=== PATIENT | female | born 1970 | race Caucasian/White ===

== ENCOUNTER 2025-02-16 01:08 | Inpatient (IN) | payer OTHER, SELFPAY ==
[2025-02-15 21:38] VITALS: BP 131/80
[2025-02-15 21:40] VITALS: BP 131/80; BMI 32.0
[2025-02-15 21:45] LABS: Glucose - Point of Care 104 mg/dl (70-99)
[2025-02-15 21:56] LABS: % Basophils 0.9 % (0-2); % Eosinophils 5.1 % (0-6); % Immature Granulocytes 0.4 % (0-0.5); % Lymphocytes 25.4 % (20.5-51.1); % Monocytes 8.1 % (1.7-9.3); % Neutrophils 60.1 % (42.2-75.2); Absolute Basophils 0.1 10^3/uL (0-0.2); Absolute Eosinophils 0.4 10^3/uL (0-0.7); Absolute Lymphocytes 2.1 10^3/uL (1.2-3.4); Absolute Monocytes 0.7 10^3/uL (0.1-0.6); Absolute Neutrophils 4.9 10^3/uL (1.4-6.5); Hematocrit 36.4 % (37.0-47.0); Hemoglobin 12.5 g/dL (12.0-16.0); Mean Corp Hgb Conc. 34.3 g/dL (33.0-37.0); Mean Platelet Volume 12.1 fL (7.4-10.4); Nucleated Red Blood Cells % 0 %; Platelet Count 244 10^3/uL (130-400); Red Blood Cell Count 3.57 10^6/uL (4.20-5.40); Red Cell Dist. Width 12.9 % (11.5-14.5); White Blood Cell Count 8.1 10^3/uL (4.8-10.8)
[2025-02-15 22:00] VITALS: BP 130/78
[2025-02-15 22:18] LABS: ALT (SGPT) 35 U/L (0-35); AST (SGOT) 31 U/L (14-36); Albumin 4.7 g/dl (3.5-5.0); Alkaline Phosphatase 75 U/L (38-126); Blood Urea Nitrogen 19 mg/dl (7-17); Calcium 9.5 mg/dl (8.4-10.2); Carbon Dioxide 27 mmol/L (22-30); Chloride 105 mmol/L (98-107); Estimated Creatinine Clearance 111 ml/min; Glucose 100 mg/dl (70-99); Sodium 140 mmol/L (135-145); Total Bilirubin 0.8 mg/dl (0.2-1.3); Total Protein 7.3 g/dl (6.3-8.2); eGFR > 60.00
[2025-02-15 22:19] LABS: Alcohol 62 mg/dl
[2025-02-15 22:22] LABS: INR 1.11; PT 14.7 Sec (11.4-14.6)
--- NOTE | 2025-02-15 22:26 | ED.GENMED ---
History of Present Illness
General
Chief Complaint: Weakness
Source: patient, spouse and family
Time Seen by Provider: 02/15/25 22:07
History of Present Illness
History of Present Illness:
This is a 54-year-old female with a history of mechanical aortic valve, atrial fibrillation, aortic aneurysm/dissection with repair, history of hemorrhagic stroke who presents after she acutely developed vision loss. states that about 9:20
PM she started sort of just staring at him. She then kind of slid off of her chair and had little bit of tightening of her right arm but was awake. He did not notice seizure activity but was worried she was having a stroke. The patient my
evaluation reports that her vision is not normal. Patient does admit that she has not been taking her Coumadin as she should and was worried her INR is low. Due to her hemorrhagic stroke they like to keep her INR around 2.0. Patient does report a
mild headache.
Past History
Past History
ED Past Medical History: Arrthythmia (Atrial fibrillation), CVA (Hemorrhagic), GERD, HTN, Valvular disease (Congenital bicuspid aortic valve with subsequent aortic dissection/ AVR with [facility]) and Other (Aortic aneurysm/dissection with repair,
hemorrhagic CVA)
ED Past Surgical History: Cardiac (Aortic valve replacement mechanical, aortic root repair), and Other ([facility] aortic valve replacement and an ascending aortic graft replacement [address] [place] [address])
Social History
Tobacco: Non-smoker
Alcohol: Occasional
Personal:
Living: with family
Family History
Family History: Negative Diabetes, Hypertension, Early CAD, Asthma or Cancer
Phy Exam
Physical Exam
Physical Exam:
CONSTITUTIONAL Patient alert and oriented to person, place and time. Well-appearing. Vital signs reviewed.
HEAD atraumatic, normocephalic.
EYES eyelids normal to inspection, Extraocular muscles intact, Conjunctiva normal, Sclera normal.
NECK normal range of motion, Trachea midline, no jugular venous distention.
RESPIRATORY CHEST No respiratory distress noted, Chest expansion equal, Bilateral breath sounds clear.
CARDIOVASCULAR regular rate and rhythm, Heart sounds normal.
ABDOMEN No distention.
BACK normal inspection, no obvious deformities
UPPER EXTREMITY range of motion normal, Motor strength normal, no cyanosis, no edema.
LOWER EXTREMITY range of motion normal, Motor strength normal, no cyanosis, no edema.
NEURO Speech normal, No focal motor deficits, [place] coma scale 15, Memory normal, Cranial Nerves intact to screening exam. No pronator drift. Normal [id number]. Normal [id number]. Right sided homonymous hemianopsia
SKIN skin warm, dry, and normal in color.
Scores
NIH Stroke Score
Level of Consciousness: 0 - Alert
LOC Questions: 0-Answers both correctly
LOC Commands: 0-Performs both correctly
Best Horizontal Gaze: 0-Normal
Visual Marquez: 2=Full hemianopia
Facial Palsy: 0=Normal, symmetrical
Motor - Right Arm: 0=No drift 10 seconds
Motor - Left Arm: 0=No drift 10 seconds
Motor - Right Le-No drift 5 seconds
Motor - Left Le-No drift 5 seconds
Limb Ataxia: 0-Absent
Sensation: 0-Normal
Best Language: 0-No aphasia
Dysarthria: 0-Normal
Extinction and Inattention: 0-No abnormality
NIH Total Score:: 2
Course
Orders/Labs/Results
Orders:
Orders
02/15/25 21:40
EKG [Electrocardiogram (*1)] Urgent
Reason for Study: Tachycardia
EKG- Treatment ONCE
02/15/25 21:46
Alcohol Urgent
Complete Blood Count/With Diff Urgent
Comprehensive Metabolic Panel Urgent
02/15/25 21:55
CT Head W/o Iv Contrast Urgent
Comment:
Reason For Exam: weakness, loss of peripheral vision, confusion
02/15/25 21:56
Add On- LAB Urgent
Tests Added?: alcohol level
02/15/25 22:01
PT/INR [Prothrombin Time] Urgent
02/15/25 22:25
CT BRAIN PERF STROKE ALERT Urgent
Comment:
Reason For Exam: R hemianopsia
CT HEAD/NECK ANG STROKE ALERT Urgent
Comment:
Reason For Exam: R hemianopsia
02/15/25 23:15
Troponin I Urgent
02/16/25 00:41
Admit/Transfer Patient As Directed
Co-Sign Provider:
Level of Care: Inpatient admission
Assign to:: IMU- Intermediate Care
Physician / Group: William
Diagnosis: Thromboembolic CVA
Reason for Hospitalization: CVA
Expected length of stay greater than two midnights?: Yes
ELOS- Estimated Length of Stay in days: 2
I certify the patient meets the requirements for IP care: Yes
PRN Pain Medication Management As Directed
May give lesser potent ordered pain med per pt: Yes
preference::
Protocol:: Medication orders for pain may be administered in a
manner that supports deferring to patient preference
when the pt is:
- Requesting an ordered lesser potent pain medication.
Least to most potent pain medications are defined
as: acetaminophen < NSAID < tramadol < opioids
(morphine, oxycodone, hydromorphone).
- Requesting a lesser dose of the same medication IF
ORDERED.
- Requesting a less intrusive route of administration
if both routes are prescribed by the provider (PO <
IV).
02/16/25 00:42
Code Status As Directed
Resuscitation Status: Full Code
02/16/25 12:01
MR Brain Without Contrast Urgent
Comment: EVALUATE PITUITARY
Reason For Exam: R hemianopsia
OK for patient to be off Cardiac Monitoring for MRI: Yes
Recent pill cam endoscopy?: No
Pacemaker/Defibrillator?: No
Brain Aneurysm Clips?: No
Have you ever worked with metal? grinding metal? welding?: No
Cochlear(ear) implants?: No
Does the patient have IV access?: Yes
Does the patient have any stents?: No
Abnormal Lab Results
02/15/25 02/15/25 02/15/25
21:42 21:46 22:01
RBC 3.57 L 10^6/uL
(4.20-5.40)
Hct 36.4 L %
(37.0-47.0)
MCV 102.0 H fL
(81.0-99.0)
MCH 35.0 H pg
(27.0-31.0)
MPV 12.1 H fL
(7.4-10.4)
Absolute Monos (auto) 0.7 H 10^3/uL
(0.1-0.6)
PT 14.7 H Sec
(11.4-14.6)
BUN 19 H mg/dl
(7-17)
Glucose 100 H mg/dl
(70-99)
POC Glucose 104 H mg/dl
(70-99)
02/15/25 21:46
02/15/25 21:46
Vital Signs
Initial and Last Documented VS:
Initial Vital Signs
BP
131/80
02/15/25 21:38
Last Documented Vital Signs
Temp Pulse Resp BP Pulse Ox
98.9 F 76 16 119/66 96
02/16/25 00:48 02/16/25 02:00 02/16/25 02:00 02/16/25 01:26 02/16/25 01:30
MDM/Problems Addressed
Differential Diagnosis Includes:
CVA, hemorrhagic CVA, uncontrolled hypertension, dissection, tumor, seizure
MDM/Problems Addressed:
Acute CVA, possible pituitary tumor
*Radiology
Radiology exam reviewed: radiology read reviewed
*Pulse Oximetry
Patient hypoxic: no
*EKG
Interpreted by ED Provider?: Yes
Interpretation: normal
Rate: normal
Interval: normal interval
QRS Pattern: normal QRS
Ischemia: no ischemia
*Hospitality Aide Interpretation
Rate: normal
Interpretation: normal
Rhythm: sinus
*Critical Care Note
Total Time (30-74mins, 75-104mins- exclusive of procedures): 95 minutes
Data Reviewed
Review of Other/Old Records Reveals: Discharge Summary (Discharge summary reviewed from January 15, 2012)
Source: family
Prescriptions/Medications Considered But Not Given:
Consider TNK but stroke score is low and history of hemorrhagic CVA
Patient Management
Discussion with other providers: Hospitalist, Title Insurance Examiner (Stroke neurologist at [facility]) and Radiologist (Posterior circulation cutoff)
Escalation/DeEscalation of care consider admission/obs:
54-year-old female presents with acute vision loss. Stroke alert initiated. Several discussions with stroke neurology. Given her history of hemorrhagic stroke and NIH stroke score of 2, hold off on TNK. Family agrees and does not want to take
the risk of TNK. However, given the concern for low INR and consideration for Lovenox or heparin, neurology recommends a stat MRI to evaluate stroke burden. If stroke burden is high may only treat with aspirin 81 mg but if stroke burden is low may
proceed with Lovenox. Also consider echocardiogram to evaluate for clot. Admit to ICU
Update Note
Update Note:
02/15/2025 11:35 PM Case again discussed with neurology who recommends transthoracic echocardiogram to rule in or rule out a cardiogenic source of emboli to help risk stratify whether or not heparin should be initiated. If there were to be a
cardiogenic source, heparin may be considered more heavily to prevent secondary stroke.
0015 Case discussed with cardiology. Does not feel the patient needs an emergent or urgent echocardiogram.
0225 case d/w neuro after MR. recommends 325mg ASA now and consider heparin/lovenox at 24-48 hours after last known well. to be decided by neuro today. stop ASA after heparin initiated. HOB flat with fluids for now with ECHO today. will also
communicate to hospitalists
ED Attending Note
-
Portions of this chart may have been created with voice recognition software.� Occasional wrong word or��sound alike� substitutions may have occurred due to the inherent limitations of voice recognition software.
Discharge Plan
Departure
Patient Disposition: Admit
Date of Disposition: 02/15/25
Time of Disposition: 23:24
Admit to: ICU
Presentation/result/management discussed w/ accepting MD/DO: Hospitalist
Discharge Problem:
Acute cerebrovascular accident (CVA)
Interventions
Interventions:
*Risk Screen - Suicide Last Done: 02/15/25 21:40
*General Assessment Last Done: 02/15/25 21:40
*Neglect/Abuse Screening Last Done: 02/15/25 21:40
*ED- Fall Risk Assessment Last Done: 02/15/25 21:40
*ED COVID-19 Vaccine History Last Done: 02/15/25 21:40
ED- Cardiac Assessment Last Done: 02/15/25 21:59
ED- Neurological Assessment Last Done: 02/15/25 21:59
ED- Pulmonary Assessment Last Done: 02/15/25 21:59
[2025-02-15 23:00] VITALS: BP 112/99
[2025-02-15 23:50] LABS: Troponin I 0.025 ng/ml
--- NOTE | 2025-02-15 23:57 | HPS.HSE ---
Family Physician
-
Family Physician: Farhan Espinal
Chief Complaint
-
Weakness and right-sided vision loss
History of Present Illness
This is a 54-year-old female with past medical history of aortic valve replacement with revision, mechanical aortic valve, atrial fibrillation, patient on anticoagulation with Coumadin, history of hypertension, history of hemorrhagic stroke in 2023
who presents to the emergency department with acute episode of weakness and visual field deficit.
Patient reported that since her hemorrhagic stroke INR goal has been between 2-2.5. She has self has been very reticent with taking the Coumadin and has not been monitoring INR closely. She stated that her INR when she last checked was
subtherapeutic and she took her next dose of Coumadin. Appears that patient has not been compliant with warfarin.
Family and patient reports sudden weakness today. She got up and suddenly collapsed to the floor feeling very weak. Did not notice the weakness of her right upper extremity and confusion. Since then the confusion has improved but she has had
persistent vision loss in the right visual field. Family updated by neurological exam at home and denied seeing any facial asymmetry. There was no dysarthria, aphasia. She denies having any headache.
In the emergency department she was afebrile, blood pressure was 112/99 with a pulse of 82 and she was satting 97% on room air. ECG shows normal sinus rhythm without any acute ST or T wave changes.
CBC was complete normal. INR was 1.11. Electrolytes BUN/creatinine were normal.
She had a CT of the head showing: Evidence of right frontotemporal craniotomy, new since examination of June 10, 2015. There are some areas of volume loss in the right hemisphere, compatible with postsurgical encephalomalacia and possibly
encephalomalacia from previous areas of infarction. Concern is raised for mass within the sella with suprasellar extension. Consider further evaluation with MRI of the brain/pituitary without and with intravenous contrast.
A CT perfusion suggests suggest left occipital lobe ischemic penumbra without a core of infarction.
CT angiogram of the head and neck with abrupt cut off of the left posterior cerebral artery as it passes lateral to the midbrain.
Medical History
Past Medical History
Past Medical History: Reports CVA (Prior hemorrhagic stroke status post surgery), HTN and Valvular Disease (Mechanical valve replacement)
Past Surgical History: Reports Brain
Social History
Tobacco: Non-smoker
Alcohol: None
Drug: None
Personal:
Living: With Family
Family History
Family History: Not pertinent
Allergies / Home Medications
Allergies reflects when Allergies were last updated in [employer].
Home Medications with original date entered in [employer]
Allergy/Medication List:
Allergies
Allergy/AdvReac Type Severity Reaction Status Date / Time
ciprofloxacin [From Cipro] Allergy Unknown Verified 02/15/25 21:46
ciprofloxacin HCl Allergy Unknown Verified 02/15/25 21:46
[From Cipro]
Quinolones Allergy Unknown Verified 02/15/25 21:46
methylprednisolone sodium AdvReac HTN, Rapid Verified 02/15/25 21:46
succinate HR
[From Solu-Medrol]
Home Medications
warfarin 7.5 mg tablet (Jantoven) 5 mg PO QPM 01/11/19
Amlodipine 5 mg tablet, 5mg PO DAILY 10/26/20
Lisinopril 10 mg tablet, 10mg po bid
Metoprolol Succinate 25 mg tablet, 25mg PO HS 10/26/20
Review of Systems
-
History Source: Patient and Family
Constitutional: Reports No Symptoms
EENT: Reports No Symptoms
Respiratory: Reports No Symptoms
Cardiac: Reports No Symptoms
Abdomen/GI: Reports No Symptoms
: Reports No Symptoms
Musculoskeletal: Reports No Symptoms
Skin: Reports No Symptoms
Neurological: Reports Weakness and Other (vision loss)
Endocrine: Reports No Symptoms
Hematologic/Lymphatic: Reports No Symptoms
Psych: Reports No Symptoms
Physical Exam
Vital Signs
Vital Signs
Temp Pulse Resp BP Pulse Ox
97.9 F 70 19 112/99 96
02/15/25 21:40 02/15/25 23:45 02/15/25 23:45 02/15/25 23:00 02/15/25 23:30
Physical Exam
General: Well Developed, Well Nourished and No Apparent Distress
HEENT: NormoCephalic, Moist mucous membranes, Atraumatic and PERRLA
Respiratory: Clear
Cardiac: S1/S2 and Regular Rhythm; No Murmur or Rub
GI: Soft, Non Tender, Non Distended and Normal Bowel Sounds; No Organomegaly
Rectal: Deferred by Provider
Musculoskeletal: No Clubbing, No Cyanosis and No Edema
Skin: No Rash
Neuro: AO x 3, Nonfocal/grossly intact and Other (Right hemianopsia); No Slurred Speech or Facial Droop
Psych: Calm
Laboratory Results
-
02/15/25 21:46
02/15/25 21:46
Laboratory Results
PT 14.7 Sec (11.4-14.6) H 02/15/25 22:01
INR 1.11 02/15/25 22:01
Total Bilirubin 0.8 mg/dl (0.2-1.3) 02/15/25 21:46
AST 31 U/L (14-36) 02/15/25 21:46
ALT 35 U/L (0-35) 02/15/25 21:46
Alkaline Phosphatase 75 U/L (38-126) 02/15/25 21:46
Troponin I 0.025 ng/ml 02/15/25 23:15
Data Reviewed
-
CT Scan: Report Reviewed by me
Medical Tests (Nuc Med, Echo, EKG etc): Image Personally Visualized and interpreted
Lab Data: Labs Reviewed by me
Old Records: Reviewed
Impression/Plan
-
IMPRESSION:
54-year-old with history of mechanical aortic valve coming in with right hemianopsia. Found to have left occipital ischemic penumbra with no area of core infarction. There is concern for a significant occipital infarct. There is an abrupt cut off
of the left posterior cerebral artery as it passes lateral to the midbrain. There are also some volume loss compatible with postsurgical inflammation and possibly inflammation from previous areas of infarction. The concern is raised for a mass
within the sella with suprasellar extension.
PLAN:
CVA -suspect thromboembolic CVA from a cardiogenic source in the setting of subtherapeutic INR in the patient with mechanical aortic valve. Patient endorses noncompliance due to prior history of hemorrhagic stroke about a year ago. She is supposed
to be on Coumadin to maintain INR between 2 and 2.5. INR today was 1.1. Currently has a visual field deficit but has no focal neurological deficits. CT perfusion study does suggest a right substantial area affected by an infarct but no core
infarct. Case discussed with neurology
-Admit to ICU
-MRI brain confirmed the acute infarct in the left RATING CLERK distribution with a significant infarct burden.
- due to infarct burden recommendation is to start with ASA 325mg now and consider full AC in 24-48 hours per day time neurology attending.
- keep HOB < 30 degrees.
- IV fluids
- echo today
- permissive hypertension
-Echo ordered
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
- N.p.o. for now except ice chips
AFIB
- rate controlled, continue metoprolol
- bridging anticoagulation with lovenox or heparin when clear of acute intracranial bleed, to be determined by neurology
- patient appeals referee to be informed in am
MVR - mechanical aortic valve
- according to patient given the hx of hemorrhagic stroke with craniotomey, her appeals referee had adjusted her therapeutic INR range to 2 - 2.5.
Right calf tendernes s- No swelling
- u/s pending
DVT PPX- subq lovenox for now
Code status - Full Code
[2025-02-16] VITALS (12 sets, daily range): BP systolic 119–149; BP diastolic 63–86; PULSE 66; O2SAT 98; BMI 32.0
[2025-02-16] MEDS: ASPIRIN 325 MG PO (03:16)
[2025-02-16] MEDS: LR 1000 IV (03:25)
[2025-02-16 04:53] LABS: Hematocrit 35.1 % (37.0-47.0); Mean Corp Hgb Conc. 34.2 g/dL (33.0-37.0); Mean Corpuscular Hgb 34.8 pg (27.0-31.0); Mean Corpuscular Volume 101.7 fL (81.0-99.0); Mean Platelet Volume 11.9 fL (7.4-10.4); Platelet Count 214 10^3/uL (130-400); Red Blood Cell Count 3.45 10^6/uL (4.20-5.40); Red Cell Dist. Width 13.2 % (11.5-14.5); White Blood Cell Count 9.6 10^3/uL (4.8-10.8)
[2025-02-16] MEDS: XANAX 0.25 MG PO ×2 (05:03→21:48)
[2025-02-16 05:16] LABS: Blood Urea Nitrogen 18 mg/dl (7-17); Calcium 9.5 mg/dl (8.4-10.2); Carbon Dioxide 25 mmol/L (22-30); Chloride 112 mmol/L (98-107); Estimated Creatinine Clearance 111 ml/min; Glucose 115 mg/dl (70-99); HDL Cholesterol 34 mg/dl; LDL Cholesterol, Calculated 155 mg/dl; Potassium 4.6 mmol/L (3.5-5.1); Sodium 142 mmol/L (135-145); Total Cholesterol 267 mg/dl (50-199); Triglyceride 392 mg/dl (10-149); Very Low Density Lipoprotein 78 mg/dl (0-30); eGFR > 60.00
[2025-02-16 05:19] LABS: INR 1.21; PT 15.5 Sec (11.4-14.6)
[2025-02-16 05:20] LABS: APTT 28.1 Sec (23.4-35.0)
[2025-02-16] MEDS: ZESTRIL 10 MG PO (09:13)
[2025-02-16] MEDS: NORVASC 5 MG PO (09:13)
--- NOTE | 2025-02-16 10:19 | CM ---
Patient seen at bedside in ED. Patient stated that she lives with her and 2 children in a 2 story home. Patient works and regional rep and is independent of ADL's and IADL's prior to admission. Patient PCP she states is her Faculty Instructor
Nicol. [facility] Patient plan is home with no needs. CM will continue to follow for discharge planning.
Plan; home with VN vs medical treatment plan/therapy assessment
--- NOTE | 2025-02-16 11:22 | W.PN.HOSP.TC ---
Today's Communication/Plan
-
Anticoagulation
Assessment / Plan
Assessment / Plan
Physical exam:
General: Acutely ill
HEENT: Normocephalic, Atraumatic and Moist Mucous Membranes
Respiratory: Clear to Auscultation; Negative Wheezes, Rales or Rhonchi
Cardiac: Regular Rhythm and S1/S2
GI: Soft, Nontender and Nondistended
Musculoskeletal: No Clubbing, No Cyanosis and No Edema
Neuro: Awake, Alert and Oriented, right quadrantanopsia on visual field deficit, mild weakness on both lower extremities L>R although does not correlate that much with images, no sensory deficits, no aphasia, all cranial nerves intact. Mild
confusion present.
Psych: Anxious
A/P:
Acute stroke:
Patient at high risk of neurological clinical deterioration from either progression of stroke or hemorrhagic conversion-either way she will need to be monitored very closely.
Seen CT scan of the head, CTA of the head and neck
Seen Brain MRI shows acute to subacute infarction involving posterior medial left temporal lobe and extending to the adjacent anterior occipital lobe.
Neurology consult-discussed with neurology
Neurology recommend full anticoagulation MARITZA-typically IV heparin drip but after discussion with patient she prefers full dose Lovenox so we will start with that. At risk of hemorrhagic conversion so we will monitor closely.
I touched base with her outpatient cardiology-Dr. Camarena from [facility] ([phone]) and he is agreeable with current plan.
Continue to monitor neurological status closely
Mechanical aortic valve replacement/paroxysmal A-fib:
On warfarin as outpatient-INR 1.21 upon admission
Seen twelve-lead EKG normal sinus rhythm at 62 bpm with incomplete RBBB
On rate control, metoprolol succinate 25 mg p.o. every evening
Cardiac monitoring
Hypertension:
Permissive HTN
On beta-mariely calcium channel mariely and XI inhibitor
Monitor blood pressure closely
Dyslipidemia:
Check fasting lipids in a.m.
Anxiety:
Continue benzodiazepines as needed
Large sellar mass:
Needs dedicated pituitary MRI but can be done outpatient along with hormonal serology
History of aortic dissection in the past when she was in her 20s
History of intracranial bleed a couple years ago status post right frontotemporal craniotomy.
DVT prophylaxis:
Full dose of Lovenox
CODE STATUS:
Full code
Total Critical Care Time__40___ minutes. I was immediately available to the patient and staff. I personally examined, reviewed labs, diagnostic images/reports, interpretations, treatment plans, discussed patient care with other providers and
family or caregivers (if patient is unable to make decisions), entered orders as appropriate and documented the medical record.
Anticipated Discharge: > 48 hours
Subjective/Interval History
-
Date of Service: February 16, 2025
Patient more alert today, feels still off, confusion on and off, she has been to touch base with her outpatient ammonia box operator who she has been in touch with. Afebrile
Objective Data
-
Labs:
Laboratory Results
02/16/25
04:34
WBC 9.6
Hgb 12.0
Hct 35.1 L
Plt Count 214
PT 15.5 H
INR 1.21
APTT 28.1
Sodium 142
Potassium 4.6
Chloride 112 H
Carbon Dioxide 25
BUN 18 H
Creatinine 0.7
Glucose 115 H
Calcium 9.5
Vital Signs:
Vital Signs
Temp Pulse Resp BP Pulse Ox
97.9 F 62 16 141/76 100
02/16/25 10:43 02/16/25 10:43 02/16/25 10:43 02/16/25 10:43 02/16/25 10:43
--- NOTE | 2025-02-16 11:35 | CON.NEURO ---
Neuro Assessment/Plan
Assessment
head CT imgs rev'd, right frontal encephalomalacia, prior right frontotemporal craniotomy, mild asymmetric dilation of right lateral ventricle
CTA head/neck imgs and report rev'd, left P3 occlusion
CT perfusion imgs rev'd, no core infarct, 30 cc of penumbra in the left MOVIE SHOT CAMERA OPERATOR territory
brain MRI imgs and report reviewed, acute to subacute infarction involving the posteromedial left temporal lobe and extending to the adjacent anterior occipital lobe.
I reviewed the imaging with patient showing the area of infarction on MRI, and penumbra on CTP
Acute ischemic stroke Left MOVIE SHOT CAMERA OPERATOR P3 occlusion, clinically improving, suggests that she did not complete the stroke. concern is that she could complete the stroke in the next couple days or throw another clot from the mechanical valve/afib; and I
recommended beginning anticoagulation today, believing benefits outweigh risks of hemorrhagic transformation or other bleed; while heparin is the usual agent in this situation patient would prefer Lovenox having been on it previously which is fine
and I consider equivalent; I would transition her to Coumadin in a week as outpatient. we had a long discussion regarding risks and benefits At her request this was discussed with her outpatient lcpc Dr Adán Camarena who agreed
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
Plan
Lovenox 90 BID, would transition to Coumadin ~1 week
repeat brain MRI DWI sequence and post contrast imgs only
check prolactin, GH, ACTH, TSH, FSH, LH
Consultation
Order
Date of Consultation: 02/16/25
Requesting Provider: Yanni Thomas MD
Reason for Consult: stroke
Subjective/Objective
Subjective Data
Date of Service: February 16, 2025
from h&p:
This is a 54-year-old female with past medical history of aortic valve replacement with revision, mechanical aortic valve, atrial fibrillation, patient on anticoagulation with Coumadin, history of hypertension, history of hemorrhagic stroke in 2023
who presents to the emergency department with acute episode of weakness and visual field deficit.
Patient reported that since her hemorrhagic stroke INR goal has been between 2-2.5. She has self has been very reticent with taking the Coumadin and has not been monitoring INR closely. She stated that her INR when she last checked was
subtherapeutic and she took her next dose of Coumadin. Appears that patient has not been compliant with warfarin.
Family and patient reports sudden weakness today. She got up and suddenly collapsed to the floor feeling very weak. Did not notice the weakness of her right upper extremity and confusion. Since then the confusion has improved but she has had
persistent vision loss in the right visual field. Family updated by neurological exam at home and denied seeing any facial asymmetry. There was no dysarthria, aphasia. She denies having any headache.
In the emergency department she was afebrile, blood pressure was 112/99 with a pulse of 82 and she was satting 97% on room air. ECG shows normal sinus rhythm without any acute ST or T wave changes.
CBC was complete normal. INR was 1.11. Electrolytes BUN/creatinine were normal.
the case was discussed with Bogdan telestroke neurologist - with the degree of symptoms, NIHSS of 2, history of ICH, TNK was not advised, and patient and family were in agreement
This morning, the patient's vision has improved, she has partial right superior quadrantopsia with blurriness in the right upper quadrant OU.
she also reports right SDH Sep 2023, for which she had an elective crani to evacuate the clot. Also reports history of prior retroperitoneal hematoma, almost , which is why she is scared to take anticoagulants
Objective Data
Vital Signs
Temp Pulse Resp BP Pulse Ox
36.6 C 62 16 141/76 100
02/16/25 10:43 02/16/25 10:43 02/16/25 10:43 02/16/25 10:43 02/16/25 10:43
Lab Results
02/16/25 04:34
02/16/25 04:34
PT 15.5 Sec (11.4-14.6) H 02/16/25 04:34
INR 1.21 02/16/25 04:34
APTT 28.1 Sec (23.4-35.0) 02/16/25 04:34
Sodium 142 mmol/L (135-145) 02/16/25 04:34
Potassium 4.6 mmol/L (3.5-5.1) 02/16/25 04:34
BUN 18 mg/dl (7-17) H 02/16/25 04:34
Glucose 115 mg/dl (70-99) H 02/16/25 04:34
Calcium 9.5 mg/dl (8.4-10.2) 02/16/25 04:34
LDL Cholesterol, Calc 155 mg/dl 02/16/25 04:34
Patient Allergies
ciprofloxacin [From Cipro] Allergy (Verified 02/15/25 21:46)
Unknown
ciprofloxacin HCl [From Cipro] Allergy (Verified 02/15/25 21:46)
Unknown
Quinolones Allergy (Verified 02/15/25 21:46)
Unknown
methylprednisolone sodium succinate [From Solu-Medrol] Adverse Reaction (Verified 02/15/25 21:46)
HTN, Rapid HR
Physical Exam
-
AAOx3, speech clear, language intact
partial right homonymous superior quadrantanopsia - sees movement, count finger with difficulty in the quadrant
EOMI, face symmetric
full strength b/l UE/LE,
sensation intact to touch/pin
Medications
-
Active Medications
Generic Name Dose Route Start Last Admin
Trade Name Freq PRN Reason Stop Dose Admin
Acetaminophen 650 mg 02/16/25 04:21
Acetaminophen 650 Mg Rectal Suppository RECTAL 03/16/25 04:20
Q4HPRN PRN
BURR, mild pain, or temp >100.4F
Acetaminophen 650 mg 02/16/25 04:21
Acetaminophen 325 Mg Tablet PO 03/16/25 04:20
Q4HPRN PRN
BURR, mild pain, or temp >100.4F
Alprazolam 0.25 mg 02/16/25 04:58
Alprazolam 0.25 Mg Tablet PO 03/16/25 04:57
HSPRN PRN
insomnia
Amlodipine Besylate 5 mg 02/16/25 08:00 02/16/25 09:13
Amlodipine 5 Mg Tablet PO 03/16/25 07:59 5 mg
DAILY RADHA Administration
Enoxaparin Sodium 40 mg 02/16/25 18:00
Enoxaparin Sodium 40 Mg/0.4 Ml Syringe SC 03/16/25 17:59
QPM RADHA
Lactated Ringer's 1,000 mls @ 75 mls/hr 02/16/25 03:19 02/16/25 03:25
Lr IV 1,000 mls
[id number] RADHA Administration
Lisinopril 10 mg 02/16/25 08:00 02/16/25 09:13
Lisinopril 10 Mg Tablet PO 03/16/25 07:59 10 mg
DAILY RADHA Administration
Metoprolol Succinate 25 mg 02/16/25 22:00
Metoprolol 25 Mg Extended Release Tablet PO 03/16/25 21:59
HS RADHA
Sodium Chloride 0 flush 02/16/25 02:00
Sodium Chloride 0.9% (Flush) Syringe IV 03/16/25 01:59
PER PROTOCOL RADHA
Home Medications
�Medication �Instructions �Recorded
ascorbic acid (vitamin C) 1,000 mg 1,000 mg PO DAILY 01/11/19
tablet (Vitamin C)
milk thistle 150 mg capsule 1 cap PO DAILY 01/11/19
warfarin 7.5 mg tablet (Jantoven) 5 mg PO QPM 01/11/19
Amlodipine 5 mg PO DAILY 10/26/20
Lisinopril 12.5 mg PO DAILY 10/26/20
Metoprolol Succinate 50 mg PO HS 10/26/20
Vitamin D3: 5,000 units PO DAILY 10/26/20
Zinc 30 mg PO DAILY 10/26/20
--- NOTE | 2025-02-16 12:34 | PTOTSP ---
Speech Pathology
Clinical Swallow Evaluation
54F with admission for thromboembolic CVA p/w a functional oropharyngeal swallow. No overt s/s of aspiration observed. Cannot r/o silent aspiration at bedside. Speech will continue to follow to assess diet level tolerance and perform cognitive
communication evaluation as able.
Aspiration risk is increased 2/2 new CVA dx and recent CVA w/ frontotemporal craniotomy (2023).
Recommend:
1. Regular textures (IDDSI 7), thin liquids
2. Meds as best tolerated
3. Aspiration Precautions
4. Speech will continue to follow: to ensure tolerance of current diet given new CVA; if difficulties arise, consider VSE to r/o silent aspiration; cognitive-communication evaluation as able
--- NOTE | 2025-02-16 12:57 | PTCARENOTE ---
PT was admitted from ER. The patient presented with flat withdrawn affect, PT aaox3 pleasant but with confusing her words and an obvious neglect of bilateral upper visual bond (refusing to look up without me prompting her to look up). When she
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 She was highly dissatisfied with her IV in her antecub area. 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 when asked how often she
drinks alcohol. she was unable quantify how much she drinks because she said while on her work trip she had a bunch a drinks each day then when she gets home, she does not drink at all or maybe one or two drinks. Pt denied having history of ETOH
abuse. While going over her medication reconciliation, she was unable to differentiate between dosages and fq ordered Versus what she actually takes. For example she stated, she normally takes 25 mg metoprolol 'most days,' but then next sentence
was that she 'often takes higher doses', yet was unable to quantify how often or how much. I probbed to ask what she meant by most days. 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
takes each day , the amount and fq based on her numbers. Again, she was unable to quantify her normal bp averages at home. She says she takes propranolol 20 mg 'mostly daily,' but unable to tell me why she takes it or how the doctor ordered it.
When i asked her her coumadin levels, she said she takes it when she feels safe. admits she is scared because she is a bleeder. 'when i get afib, ill take it and skip it when i dont have it.' I educated the importance of following the doctors
prescribed orders for medication instead of making changes without their knowledge. pt stated, ' i know my self very well.' I restated importance of ttaking medications as prescribed. PT had IV going and very upset that it is beeping. She keeps
bending arm. PT has right sided visual field deficits in upper bond. when talking with her it appears she avoids looking up and keeps her eyes down. I have to prompt her to look up. otherwise NIH 1. Neurology saw patient, PT OT speech did their
consult and a diet order was placed. PT is high fall risk, I educated her on this and reminded her to call for me if she wants to get OOB to bathroom. pt with call mondragon in hand at bedside
--- NOTE | 2025-02-16 13:19 | PTCARENOTE ---
Late documentation note for 02/16 admission note. Pt had BLE +2 pitting edema that is new up to knee that is new. She complained of right calf pain with a little limp with ambulating related to it. I reviewed her US results with her for bakers
cyst. Physical therapy saw pt immediatly after me and they also noted same assessments. please refer to PT note
[2025-02-16 15:00] LABS: Glycohemoglobin (HgbA1c) 6.1 % (4.0-5.6)
[2025-02-16] MEDS: TYLENOL 650 MG PO ×2 (16:30→21:45)
[2025-02-16] MEDS: LOVENOX 90 MG SC (17:24)
--- NOTE | 2025-02-16 17:34 | PTCARENOTE ---
pt was ordered lovenox at 1999 however, pt is sub therapeutic and not given lovenox yet during stay. I called pharmacy and discussed with them and they agreed to change timing to 6 am and 6pm so she an get her first dose now. Pt received first dose
[2025-02-16] MEDS: TOPROL XL PO (21:47)
--- NOTE | 2025-02-17 00:14 | PTCARENOTE ---
Pt anxious at times. PRN xanax given at bedtime. Pt c/o sharp pain to R calf. PRN tylenol given, leg elevated and ice provided. TUBE CUTTER OPERATOR made aware. Pt drowsy/forgetful when awakened for NIH assessment. Neuro status and memory improved as patient
more awake. No visual field deficits noted.
[2025-02-17 03:22] VITALS: BP 135/83
[2025-02-17] MEDS: TYLENOL 1000 MG PO (03:29)
--- NOTE | 2025-02-17 03:52 | W.PN.UPDATE ---
Update Note
Progress Note Update
Asked to evaluate patient earlier in shift for calf pain/swelling. Noted swelling, tenderness right calf. U/S previously done on 02/16 am that showed Honeycutt's cyst and ruled out DVT. Pain medication given, right leg elevated, ice applied.
~4 am Pt awoke w/ increased pain, swelling increased. Tylenol 1 g PO given. Ordered urgent U/S, overnight preliminary results showed 'No evidence of DVT, large fluid collection suggestion possible hemorrhage. Recommend MRI. MRI ordered. Consulted
Orthopedics, TT w/Dr. Hitchcock, recommended treatment is resting activity, modification, crutches. OK to give scheduled Lovenox dose this AM. IR consulted to evaluate/treat, TT sent to rehabilitation psychologist provider.
Spoke w/patient and patient's , in person, and also to patient's Latex Dipper, to review U/S results and update on plan of care, verbalized understanding and are in agreement. Additional pain medication provided.
--- NOTE | 2025-02-17 04:08 | PTCARENOTE ---
Late note due to patient care. Pt noted to be limping while ambulating in room at start of shift, no pain reported at that time. Prior to bed, pt reporting increased warmth and 'shooting' pain to R calf. RN at bedside to assess. Right lower leg
swollen compared to Left leg and warm to touch. Leg elevated and ice pack provided. PRN tylenol given prior to bed. Pt asleep and appeared comfortable until 0300 vitals - pt reporting pain and R lower leg noted to have increased swelling, warm to
touch, and pt reporting decreased ROM. No redness noted. MELT HELPER notified. Tylenol 1000 mg given for pain. Ultrasound at bedside. Pt afebrile, vital signs remain stable and neuro exam unchanged.
[2025-02-17] MEDS: LOVENOX 90 MG SC ×2 (06:24→18:01)
[2025-02-17] MEDS: DILAUDID 0.25 MG IV (06:25)
[2025-02-17 07:10] LABS: Hematocrit 33.2 % (37.0-47.0); Mean Corp Hgb Conc. 33.1 g/dL (33.0-37.0); Mean Corpuscular Hgb 33.4 pg (27.0-31.0); Mean Corpuscular Volume 100.9 fL (81.0-99.0); Platelet Count 209 10^3/uL (130-400); Red Blood Cell Count 3.29 10^6/uL (4.20-5.40); Red Cell Dist. Width 13.2 % (11.5-14.5); White Blood Cell Count 7.1 10^3/uL (4.8-10.8)
[2025-02-17 07:37] LABS: Blood Urea Nitrogen 11 mg/dl (7-17); Calcium 9.2 mg/dl (8.4-10.2); Carbon Dioxide 24 mmol/L (22-30); Chloride 111 mmol/L (98-107); Estimated Creatinine Clearance > 125 ml/min; Glucose 127 mg/dl (70-99); HDL Cholesterol 29 mg/dl; LDL Cholesterol, Calculated 158 mg/dl; Sodium 141 mmol/L (135-145); Total Cholesterol 246 mg/dl (50-199); Triglyceride 296 mg/dl (10-149); Very Low Density Lipoprotein 59 mg/dl (0-30); eGFR > 60.00
[2025-02-17 09:25] VITALS: BP 152/88
--- NOTE | 2025-02-17 09:36 | CON.ORTHO ---
Consultation
-
Date/Time Consultation Requested: February 17
Date/Time Consultation Performed: February 17
Requesting Provider: TAI Jorge
Performing Provider: Mahamed Arzatey
Reason for Consultation: RLE swelling
Consultation - Orthopedics
History
History of Present Illness:
This is a 54-year-old female with a PMH of mechanical aortic valve, atrial fibrillation, aortic aneurysm/dissection with repair, history of hemorrhagic stroke who presents after she acutely developed vision loss. states that about 2119 on
February 17 she started just staring at him. She then slid off of her chair and had little bit of tightening of her right arm but was awake. He did not notice seizure activity but was worried she was having a stroke. The patient my evaluation
reports that her vision is not normal. Patient does admit that she has not been taking her Coumadin as she should and was worried her INR is low. Due to her hemorrhagic stroke they like to keep her INR around 2.0. INR was found to be 1.1.
Currently 1.21 this AM. She has been admitted to the primary medical team with Neuro consult after findings of acute to subacute infarction, w/o hemorrhage, noted on brain MR. During her admission she developed some increased RLE swelling. Doppler
US was negative for DVT, but Honeycutt's cyst was noted. She is currently on Lovenox. We were requested given her RLE swelling by TAI Johnson. Currently, at the time of consult, patient c/o RLE swelling, but no significant RLE pain. Just
returned from MRI, where she reports repeat brain and RLE MRI were performed.
Past Medical History:
Arrhythmia (Atrial fibrillation), CVA (Hemorrhagic), GERD, HTN, Valvular disease (Congenital bicuspid aortic valve with subsequent aortic dissection/ AVR with [facility]) and Other (Aortic aneurysm/dissection with repair, hemorrhagic CVA
Past Surgical History:
Cardiac (Aortic valve replacement mechanical, aortic root repair), and Other ([facility] aortic valve replacement and an ascending aortic graft replacement Sandro Giron)
Social History:
Tobacco: Non-smoker
Alcohol: Occasional
Personal:
Living: with family
Family History:
Negative Diabetes, Hypertension, Early CAD, Asthma or Cancer
Allergies / Home Medications
Allergy/AdvReac Type Severity Reaction Status Date / Time
ciprofloxacin [From Cipro] Allergy Unknown Verified 02/15/25 21:46
ciprofloxacin HCl Allergy Unknown Verified 02/15/25 21:46
[From Cipro]
Quinolones Allergy Unknown Verified 02/15/25 21:46
methylprednisolone sodium AdvReac HTN, Rapid Verified 02/15/25 21:46
succinate HR
[From Solu-Medrol]
�Medication �Instructions �Recorded
ascorbic acid (vitamin C) 1,000 mg 1,000 mg PO DAILY 01/11/19
tablet (Vitamin C)
milk thistle 150 mg capsule 1 cap PO DAILY 01/11/19
warfarin 7.5 mg tablet (Jantoven) 5 mg PO QPM 01/11/19
Amlodipine 5 mg PO DAILY 10/26/20
Lisinopril 12.5 mg PO DAILY 10/26/20
Metoprolol Succinate 25 mg PO 1XD 10/26/20
Vitamin D3: 5,000 units PO DAILY 10/26/20
Zinc 30 mg PO DAILY 10/26/20
Vital Signs / Lab Results
Temp Pulse Resp BP Pulse Ox
97.8 F 70 18 152/88 96
02/17/25 09:25 02/17/25 09:25 02/17/25 09:25 02/17/25 09:25 02/17/25 09:25
02/17/25 06:43
02/17/25 06:43
Assessment / Plan
PE: Afeb. Comfortable in bed. Directed exam of the RLE reveals some swelling of the calf compared to the contralateral LLE. No erythema or significant increased warmth. All compartments are compressible with no concerns for compartment syndrome.
Some fullness in the popliteal fossa. Knee and ankle range well without pain. No pain with active ankle motion against resistance. Palpable pulses distally,DP or PT. DNVI RLE
Diagnostics: Doppler US RLE negative for DVT
MRI RLE pending
Impression: Ruptured Honeycutt's cyst, creating a phlebitic-like syndrome vs. hematoma
Possible small active RLE hemorrhage (less likely)
Plan: Discussed with the patient at length. With US negative for DVT I have low concerns for anything significant here in her RLE. Continue Tx per the primary medical team. Supportive measures recommended to the RLE. Elevation, ice/most heat
(whatever is more therapeutic). Some compression to the area would likely be of benefit. Pain control. Will review the RLE MRI when available and make additional recommendations, if indicated. I anticipate Orthopaedics will sign off after MRI is
reviewed. If that's the case, once medically optimized and D/c, may follow-up outpatient, if desired.
[2025-02-17] MEDS: ZESTRIL 10 MG PO (09:59)
[2025-02-17] MEDS: NORVASC 5 MG PO (10:00)
[2025-02-17] MEDS: TYLENOL 650 MG PO (10:01)
[2025-02-17] MEDS: DILAUDID 0.5 MG IV (10:31)
--- NOTE | 2025-02-17 10:36 | W.PN.HOSP.TC ---
Addendum entered and electronically signed by Jose Carty MD 02/17/25 13:56:
MRI on right lower extremity shows muscle hematoma. Discussed with orthopedic and while they do see some benefit on holding anticoagulation they understand the risk of not being on anticoagulation would be too much and they would favor to continue.
I discussed with neurology and he will discuss with patient. I discussed with patient myself and she is agreeable with continue anticoagulation for now unless this changes depending on her clinical course. I also reached out to her outpatient
sample room supervisor Dr. Camarena since she requested me to call him and I updated him about the current condition and he agrees with continuing anticoagulation as well understanding risk/benefits.
Original Note:
Today's Communication/Plan
-
Anticoagulation. Brain MRI. LLE MRI.
Assessment / Plan
Assessment / Plan
Physical exam:
General: Acutely ill
HEENT: Normocephalic, Atraumatic and Moist Mucous Membranes
Respiratory: Clear to Auscultation; Negative Wheezes, Rales or Rhonchi
Cardiac: Regular Rhythm and S1/S2
GI: Soft, Nontender and Nondistended
Musculoskeletal: Edema right knee and lower extremity associated with pain and tenderness. No erythema. Pulses palpable on both distal extremities. No Clubbing, No Cyanosis.
Neuro: Awake, Alert and Oriented, right quadrantanopsia on visual field deficit, mild weakness on the right lower extremity but associated with pain, no sensory deficits, no aphasia, all cranial nerves intact.
Psych: Anxious
A/P:
Acute stroke:
Patient at high risk of neurological clinical deterioration from either progression of stroke or hemorrhagic conversion-either way she will need to be monitored very closely.
Seen CT scan of the head, CTA of the head and neck
Seen Brain MRI shows acute to subacute infarction involving posterior medial left temporal lobe and extending to the adjacent anterior occipital lobe.
Neurology consult-discussed with neurology yesterday
Neurology recommend full anticoagulation MARITZA-typically IV heparin drip but after discussion with patient she prefers full dose Lovenox so we will start with that. At risk of hemorrhagic conversion so we will monitor closely.
I touched base yesterday with her outpatient cardiology-Dr. Camarena from [facility] ([phone]) and he is agreeable with current plan.
Continue to monitor neurological status closely
Plan for repeat MRI today per neurology with and without contrast-done and pending results.
Right lower extremity pain/knee:
Due to Honeycutt's cyst rupture and per Ortho creating a phlebitic-like syndrome
Possibly a small right lower extremity hemorrhage but less likely
Orthopedic consult appreciated
Okay with anticoagulation
Continue pain control and local measures
Doppler negative for DVT
MRI of right lower extremity pending
Mechanical aortic valve replacement/paroxysmal A-fib:
On warfarin as outpatient-INR 1.21 upon admission-Suspected non-compliance
Seen twelve-lead EKG normal sinus rhythm at 62 bpm with incomplete RBBB
On rate control, metoprolol succinate 25 mg p.o. every evening
Cardiac monitoring
Hypertension:
Permissive HTN
On beta-mariely calcium channel mariely and XI inhibitor
Monitor blood pressure closely
Prediabetes mellitus:
Hemoglobin A1c 6.1
Lifestyle changes modification
Dyslipidemia:
Checking fasting lipids
Anxiety:
Continue benzodiazepines as needed
Large sellar mass:
MRI with contrast ordered and pending
Pituitary hormonal testing pending
Rule out acute blood loss anemia:
Hemoglobin 11
Hemoglobin 12 yesterday
Continue to monitor hemoglobin
History of aortic aneurysm dissection s/p repair in the past when she was in her 20s
History of intracranial bleed a couple years ago status post right frontotemporal craniotomy.
DVT prophylaxis:
Full dose of Lovenox
CODE STATUS:
Full code
Total time spent on today's encounter was 52 minutes which included time spent in counseling the patient/family regarding diagnosis and treatment plan as listed above, goals of care, and symptom management. Case was discussed with nursing staff,
specialists, and care coordinators/case management. All labs and imaging personally reviewed by me. Remainder the time spent in detailed review of previous records, lab data, imaging, and other medical provider documentation.
Anticipated Discharge: > 48 hours
Subjective/Interval History
-
Date of Service: February 17, 2025
Noted overnight events. Complains of pain in the right knee area and leg. No chest pain or shortness of breath. Vision abnormalities improving
Objective Data
-
Labs:
Laboratory Results
02/17/25
06:43
WBC 7.1
Hgb 11.0 L
Hct 33.2 L
Plt Count 209
Sodium 141
Potassium 4.0
Chloride 111 H
Carbon Dioxide 24
BUN 11
Creatinine 0.6
Glucose 127 H
Calcium 9.2
Vital Signs:
Vital Signs
Temp Pulse Resp BP Pulse Ox
97.8 F 70 18 152/88 96
02/17/25 09:25 02/17/25 09:25 02/17/25 09:25 02/17/25 09:25 02/17/25 09:25
I&O
02/16/25 02/17/25 02/18/25
06:59 06:59 06:59
Intake Total 480 / 480
Balance 480 / 480
[2025-02-17 11:19] VITALS: BP 143/80
--- NOTE | 2025-02-17 13:30 | W.PN.UPDATE ---
Update Note
Progress Note Update
MRI reviewed. Findings suggestive of (gastroc) intramuscular hematoma- I would agree with rads. Supportive measures for sure. This should resolve with time. Elevation, ice/heat, compression. May be OOB ad sara if OK with primary team. Discussed with
Dr. Carty. He is to discuss with Neuro about possibly holding Lovenox. This could definitely help with progression of the hematoma, if there is a small active bleeder, however, given her current clinical picture, I would not be in favor of any
treatment that puts her at increased risk of worsening CVA/symptoms or cardiac complication. Continuing anti-coagulation, in my opinion, is OK. Will defer to Dr. Carty and Neuro on that. Will see her tomorrow on rounds to discuss findings on MRI and
likely sign off.
[2025-02-17] MEDS: DILAUDID 1 MG IV ×2 (14:18→18:10)
[2025-02-17 16:07] VITALS: BP 142/81
[2025-02-17 19:00] VITALS: BP 137/81
--- NOTE | 2025-02-17 19:09 | W.PN.NEURO.1 ---
Today's Communication / Plan
-
continue Lovenox 90 BID despite right calf hematoma, with transition to Coumadin in ~1 week
Neuro Assessment/Plan
Assessment
head CT imgs rev'd, right frontal encephalomalacia, prior right frontotemporal craniotomy, mild asymmetric dilation of right lateral ventricle
CTA head/neck imgs and report rev'd, left P3 occlusion
CT perfusion imgs rev'd, no core infarct, 30 cc of penumbra in the left [employer] territory
brain MRI imgs and report reviewed, acute to subacute infarction involving the posteromedial left temporal lobe and extending to the adjacent anterior occipital lobe.
I reviewed the imaging with patient showing the area of infarction on MRI, and penumbra on CTP
Repeat brain MRI 02/17 with contrast shows the stroke is not enlarging,
Acute ischemic stroke Left [employer] P3 occlusion, clinically improving, suggests that she did not complete the stroke. concern is that she could complete the stroke in the next couple days or throw another clot from the mechanical valve/afib; and I
recommended beginning anticoagulation today, believing benefits outweigh risks of hemorrhagic transformation or other bleed; while heparin is the usual agent in this situation patient would prefer Lovenox having been on it previously which is fine
and I consider equivalent; I would transition her to Coumadin in a week as outpatient. we had a long discussion regarding risks and benefits At her request this was discussed with her outpatient piece jobber Dr Adán Camarena who agreed
with the leg hematoma, ortho opinion that while the hematoma may be helped by stopping anticoagulation, it could be continued if needed. spoke with patient I do not know if the left P3 occlusion recanalized, or if she has an active clot on the
mechanical valve, but in either case we would continue anticoagulation so no need for another CTA or FAUSTO
large pituitary adenoma there is no bitemporal hemianopsia on exam so not pressing on the chiasm
Plan
continue Lovenox 90 BID, would transition to Coumadin ~1 week
check prolactin, GH, ACTH, TSH, FSH, LH
Subjective/Objective
Subjective Data
Date of Service: February 17, 2025
seen this morning, patient reports visual defect is resolved
right calf pain, swelling, pain controlled with Dilaudid, MRI showing hematoma
Objective Data
Vital Signs
Temp Pulse Resp BP Pulse Ox
37.0 C 75 22 142/81 98
02/17/25 16:07 02/17/25 16:07 02/17/25 16:07 02/17/25 16:07 02/17/25 16:07
Lab Results
02/17/25 06:43
02/17/25 06:43
PT 15.5 Sec (11.4-14.6) H 02/16/25 04:34
INR 1.21 02/16/25 04:34
APTT 28.1 Sec (23.4-35.0) 02/16/25 04:34
Sodium 141 mmol/L (135-145) 02/17/25 06:43
Potassium 4.0 mmol/L (3.5-5.1) 02/17/25 06:43
BUN 11 mg/dl (7-17) 02/17/25 06:43
Glucose 127 mg/dl (70-99) H 02/17/25 06:43
Calcium 9.2 mg/dl (8.4-10.2) 02/17/25 06:43
LDL Cholesterol, Calc 158 mg/dl 02/17/25 06:43
Patient Allergies
ciprofloxacin [From Cipro] Allergy (Verified 02/15/25 21:46)
Unknown
ciprofloxacin HCl [From Cipro] Allergy (Verified 02/15/25 21:46)
Unknown
Quinolones Allergy (Verified 02/15/25 21:46)
Unknown
methylprednisolone sodium succinate [From Solu-Medrol] Adverse Reaction (Verified 02/15/25 21:46)
HTN, Rapid HR
Physical Exam
-
AAOx3, speech clear, language intact
VFF, EOMI face symmetric
full strength b/l UE/LE
sensation intact to touch
[2025-02-17] MEDS: TOPROL XL 25 MG PO (20:52)
--- NOTE | 2025-02-17 22:18 | PTCARENOTE ---
patient was offered mouth care multiple times but said that they would prefer to do mouth care in the morning.
[2025-02-17] MEDS: ROXICODONE 5 MG PO (22:28)
[2025-02-17] MEDS: XANAX 0.25 MG PO (22:28)
[2025-02-17 23:00] VITALS: BP 143/82
[2025-02-18] VITALS (7 sets, daily range): BP systolic 128–148; BP diastolic 68–80
[2025-02-18] MEDS: DILAUDID 1 MG IV ×3 (02:06→17:53)
[2025-02-18 02:57] LABS: Hematocrit 32.5 % (37.0-47.0); Mean Corp Hgb Conc. 33.8 g/dL (33.0-37.0); Mean Corpuscular Hgb 34.3 pg (27.0-31.0); Mean Corpuscular Volume 101.2 fL (81.0-99.0); Mean Platelet Volume 12.4 fL (7.4-10.4); Platelet Count 224 10^3/uL (130-400); Red Blood Cell Count 3.21 10^6/uL (4.20-5.40); Red Cell Dist. Width 13.2 % (11.5-14.5); White Blood Cell Count 9.7 10^3/uL (4.8-10.8)
[2025-02-18 03:21] LABS: PT 15.5 Sec (11.4-14.6)
[2025-02-18 03:22] LABS: Blood Urea Nitrogen 10 mg/dl (7-17); Calcium 9.6 mg/dl (8.4-10.2); Carbon Dioxide 24 mmol/L (22-30); Chloride 106 mmol/L (98-107); Estimated Creatinine Clearance > 125 ml/min; Glucose 132 mg/dl (70-99); Potassium 4.2 mmol/L (3.5-5.1); Sodium 137 mmol/L (135-145); eGFR > 60.00
[2025-02-18] MEDS: ROXICODONE 5 MG PO ×4 (04:05→23:13)
--- NOTE | 2025-02-18 06:28 | W.PN.HOSP.TC ---
Today's Communication/Plan
-
see a/p
Assessment / Plan
Assessment / Plan
Physical exam:
General: No acute distress, appears comfortable at this time.
HEENT: Normocephalic, Atraumatic and Moist Mucous Membranes
Respiratory: Clear to Auscultation; Negative Wheezes, Rales or Rhonchi
Cardiac: Regular Rhythm and S1/S2
GI: Soft, Nontender and Nondistended
Musculoskeletal: Edema right knee and lower extremity associated with pain and tenderness. No erythema. Pulses palpable on both distal extremities. No Clubbing, No Cyanosis.
Neuro: Awake, Alert and Oriented, right quadrantanopsia on visual field deficit, mild weakness on the right lower extremity but associated with pain, no sensory deficits, no aphasia, all cranial nerves intact.
Psych: Anxious
A/P:54F HTN mech AVR afib on warfarin hx ICH s/p craniotomy here for evaluation CVA with associate subtherapeutic INR further complicated with RLE hematoma. 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
Acute stroke:
Patient at high risk of neurological clinical deterioration from either progression of stroke or hemorrhagic conversion-either way she needs to be monitored very closely.
CT head noted prior craniotomy and concerns for mass within the sella w/ suprasellar extension
CT perfusion suggesting left occipital ischemic penumbra with no area of core infarction
CTA of the head and neck appreciated no significant carotid stenosis b/l, sella mass also noted
Brain MRI w/o contrast appreciated
-Focal area of acute to subacute infarction involving the posteromedial left temporal lobe and extending to the adjacent anterior occipital lobe. No evidence for associated hemorrhage or mass effect.
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
Repeat Brain MRI w/wo contrast appreciated
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
follow up Pituitary hormonal testing results
Neurology consult appreciated
Neurology recommend full anticoagulation MARITZA-typically IV heparin drip but treated w/ therapeutic Lovenox per pt's preference
Dr Carty touched base with pt's outpatient cardiology-Dr. Camarena from [place] ([phone]), reported in agreement with plan of care
Continue to monitor neurological status closely
Right lower extremity pain/knee:
Honeycutt's cyst rupture
MRI RLE appreciated complex collection medial head Gastrocnemius muscle suggestive intramuscular hematoma, subq edema lower leg
Orthopedic consult appreciated cont conservative measures pain control, ice, elevation, compression- ok to continue anticoagulation, benefit outweighs risk.
Doppler negative for DVT
Patient hesitant regarding compressive therapy agreeable to trying at Bedtime however, ordered XI wraps accordingly.
Mechanical aortic valve replacement/paroxysmal A-fib:
On warfarin as outpatient-INR 1.21 upon admission subtherapeutic
On rate control, metoprolol succinate 25 mg p.o. every evening
Cardiac monitoring
Eventual Lovenox Warfarin Bridge starting February 23 as per neuro, cont therapeutic Lovenox at this time.
Hypertension:
Permissive HTN completed
On beta-mariely calcium channel mariely and XI inhibitor
Monitor blood pressure closely
Prediabetes mellitus:
Obesity
Hemoglobin A1c 6.1
Lifestyle changes modification
Dyslipidemia:
Checking fasting lipids
Anxiety:
Continue benzodiazepines as needed
Mild Anemia
-monitor Hgb
History of aortic aneurysm dissection s/p repair in the past when she was in her 20s
History of intracranial bleed a couple years ago status post right frontotemporal craniotomy.
DVT prophylaxis:
Full dose of Lovenox
CODE STATUS:
Full code
discussed with patient and patient's [facility]
I spent a total of 50 minutes with the patient or on the floor. More than 50% of this time involved counseling and coordination of care.
Anticipated Discharge: 24 - 48 hours
Subjective/Interval History
-
Date of Service: February 18, 2025
RLE tenderness swelling improved with rest and elevation as day progressed. No acute distress, appears relatively comfortable at this time. Pain controlled with current pain regimen. [facility] present during evaluation.
Objective Data
-
Labs:
Laboratory Results
02/18/25
02:18
WBC 9.7
Hgb 11.0 L
Hct 32.5 L
Plt Count 224
PT 15.5 H
INR 1.20
Sodium 137
Potassium 4.2
Chloride 106
Carbon Dioxide 24
BUN 10
Creatinine 0.6
Glucose 132 H
Calcium 9.6
Vital Signs:
Vital Signs
Temp Pulse Resp BP Pulse Ox
98.0 F 76 20 148/74 97
02/18/25 03:00 02/18/25 03:00 02/18/25 03:00 02/18/25 03:00 02/18/25 03:00
I&O
02/16/25 02/17/25 02/18/25
06:59 06:59 06:59
Intake Total 480 / 480 1916
Balance 480 / 480 1916
[2025-02-18] MEDS: LOVENOX 90 MG SC ×2 (06:50→17:52)
--- NOTE | 2025-02-18 07:34 | W.PN.UPDATE ---
Update Note
Progress Note Update
Please see update note from yesterday (February 17). Discussed all with patient bedside this AM. She was truly appreciative of our input. Continue Tx per the primary medical team. Orthopaedics to sign off for now. Again, may follow-up outpatient if
symptoms persist, upon D/c.
[2025-02-18] MEDS: ZESTRIL 10 MG PO (08:00)
--- NOTE | 2025-02-18 08:16 | W.PN.NEURO.1 ---
Today's Communication / Plan
-
continue Lovenox 90 BID, would transition to warfarin ~1 week, February 23, 2025
Outpatient endocrinology evaluation due to pituitary adenoma identified on MRI
Awaiting prolactin, GH, ACTH, TSH, FSH, LH
Initiate atorvastatin 80 mg daily due to markedly elevated LDL
Neuro Assessment/Plan
Assessment
head CT imgs rev'd, right frontal encephalomalacia, prior right frontotemporal craniotomy, mild asymmetric dilation of right lateral ventricle
CTA head/neck imgs and report rev'd, left P3 occlusion
CT perfusion imgs rev'd, no core infarct, 30 cc of penumbra in the left [employer] territory
brain MRI imgs and report reviewed, acute to subacute infarction involving the posteromedial left temporal lobe and extending to the adjacent anterior occipital lobe.
Repeat brain MRI 02/17 with contrast shows the stroke is not enlarging,
Acute ischemic stroke Left [employer] P3 occlusion, clinically improving, suggests that she did not complete the stroke. concern is that she could complete the stroke in the next couple days or throw another clot from the mechanical valve/afib; while
heparin is the usual agent in this situation patient would prefer Lovenox having been on it previously
with the leg hematoma, ortho opinion that while the hematoma may be helped by stopping anticoagulation
large pituitary adenoma there is no bitemporal hemianopsia on exam so not pressing on the chiasm
Patient was not a candidate for either an arterial thrombectomy or use of tenecteplase due to location of lesion and prior history of intracranial hemorrhage
Plan
continue Lovenox 90 BID, would transition to Coumadin ~1 week, February 23, 2025
Outpatient endocrinology evaluation due to pituitary adenoma identified on MRI
Awaiting prolactin, GH, ACTH, TSH, FSH, LH
Initiate atorvastatin 80 mg daily due to markedly elevated LDL
Will follow as needed
Subjective/Objective
Subjective Data
Date of Service: February 18, 2025
Objective Data
Vital Signs
Temp Pulse Resp BP Pulse Ox
36.7 C 76 20 148/74 97
02/18/25 03:00 02/18/25 03:00 02/18/25 03:00 02/18/25 03:00 02/18/25 03:00
Lab Results
02/18/25 02:18
02/18/25 02:18
PT 15.5 Sec (11.4-14.6) H 02/18/25 02:18
INR 1.20 02/18/25 02:18
APTT 28.1 Sec (23.4-35.0) 02/16/25 04:34
Sodium 137 mmol/L (135-145) 02/18/25 02:18
Potassium 4.2 mmol/L (3.5-5.1) 02/18/25 02:18
BUN 10 mg/dl (7-17) 02/18/25 02:18
Glucose 132 mg/dl (70-99) H 02/18/25 02:18
Calcium 9.6 mg/dl (8.4-10.2) 02/18/25 02:18
LDL Cholesterol, Calc 158 mg/dl 02/17/25 06:43
Patient Allergies
ciprofloxacin [From Cipro] Allergy (Verified 02/15/25 21:46)
Unknown
ciprofloxacin HCl [From Cipro] Allergy (Verified 02/15/25 21:46)
Unknown
Quinolones Allergy (Verified 02/15/25 21:46)
Unknown
methylprednisolone sodium succinate [From Solu-Medrol] Adverse Reaction (Verified 02/15/25 21:46)
HTN, Rapid HR
Data Reviewed
-
MRI Head: Report Reviewed
Labs: Report Reviewed
Lipid Profile: Report Reviewed
Reviewed with: Physician
Old Records: Summarized
[2025-02-18] MEDS: NORVASC 5 MG PO (10:49)
[2025-02-18] MEDS: LIPITOR 80 MG PO (17:52)
--- NOTE | 2025-02-18 18:11 | PTOTSP ---
Acute Care Evaluation & Follow-Up
Pt currently presents with clinical signs of a mild to moderate cognitive linguistic impairment (MOCA=19/30) characterized by relative strengths in the areas of naming and language and areas of need in the areas of orientation, attention, executive
functioning, registration of verbal information, short term recall of information, and abstraction. Pt also presents with inconsistent/intermittent mild expressive and receptive language deficits in conversation that would benefit further evaluation.
Pt currently presents with oral, pharyngeal, and esophageal swallowing parameters that are within functional limits. No overt s/s of penetration or aspiration are observed at bedside. Please note silent aspiration cannot be ruled out at bedside.
Recommendations:
- RESEARCH PSYCHOLOGIST f/u to tx cognitive communication deficits while IP; assess further if able.
- Pt would benefit from RESEARCH PSYCHOLOGIST tx upon discharge at the next level of care - out patient.
- No skilled dysphagia services indicated at this time.
[2025-02-18] MEDS: TYLENOL 650 MG PO (20:17)
[2025-02-18 20:20] LABS: FSH 6.7 mIU/ml; Luteinizing Hormone 9.76 mIU/ml; Prolactin 55.7 ng/ml (3.0-18.6)
[2025-02-18 20:53] LABS: Adrenocorticotropic Hormone 14.2 pg/mL (7.2-63.3)
[2025-02-18] MEDS: COLACE 100 MG PO (23:12)
[2025-02-18] MEDS: TOPROL XL 25 MG PO (23:12)
[2025-02-19 02:01] LABS: Growth Hormone 0.12 ng/mL (0.05-8.00)
--- NOTE | 2025-02-19 02:10 | PTCARENOTE ---
Pt voiced concerns in regards to her R leg. Pt states 'it feels really hot and uncomfortable, my skin is so stretched.' +cms. pedal pulses confirmed via doppler. Vss. Pt states 'I feel like my lungs are filing up with fluid and that I am wheezing.'
lungs clear to auscultation. pox 98% on Ra. R leg elevated on several pillows and applied ice. House BLOOD BANK BOOKING CLERK in to see Pt. call mondragon within reach.
[2025-02-19] MEDS: DILAUDID 1 MG IV ×2 (02:39→20:57)
[2025-02-19 03:09] VITALS: BP 157/79
[2025-02-19] MEDS: LOVENOX 90 MG SC ×2 (06:21→17:06)
[2025-02-19] MEDS: ROXICODONE 5 MG PO ×4 (06:25→23:47)
[2025-02-19 07:25] LABS: Hematocrit 30.8 % (37.0-47.0); Hemoglobin 10.3 g/dL (12.0-16.0); Mean Corp Hgb Conc. 33.4 g/dL (33.0-37.0); Mean Corpuscular Hgb 34.1 pg (27.0-31.0); Platelet Count 213 10^3/uL (130-400); Red Blood Cell Count 3.02 10^6/uL (4.20-5.40); Red Cell Dist. Width 13.2 % (11.5-14.5); White Blood Cell Count 8.6 10^3/uL (4.8-10.8)
--- NOTE | 2025-02-19 07:50 | W.PN.HOSP.TC ---
Today's Communication/Plan
-
cont therapeutic lovenox
cont Elevation ice RLE, compression therapy XI wraps as tolerated
pain control
Endocrine eval
Assessment / Plan
Assessment / Plan
Physical exam:
General: No acute distress, appears comfortable at this time.
HEENT: Normocephalic, Atraumatic and Moist Mucous Membranes
Respiratory: Clear to Auscultation; Negative Wheezes, Rales or Rhonchi
Cardiac: Regular Rhythm and S1/S2
GI: Soft, Nontender and Nondistended
Musculoskeletal: Edema right knee and lower extremity associated with pain and tenderness. No erythema. Pulses palpable on both distal extremities. No Clubbing, No Cyanosis.
Neuro: AOx3 conversant coherent
Psych: Calm
A/P:54F HTN mech AVR afib on warfarin hx ICH s/p craniotomy here for evaluation CVA with associate subtherapeutic INR further complicated with RLE hematoma. 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
Acute stroke:
Patient at high risk of neurological clinical deterioration from either progression of stroke or hemorrhagic conversion-either way she needs to be monitored very closely.
CT head noted prior craniotomy and concerns for mass within the sella w/ suprasellar extension
CT perfusion suggesting left occipital ischemic penumbra with no area of core infarction
CTA of the head and neck appreciated no significant carotid stenosis b/l, sella mass also noted
Brain MRI w/o contrast appreciated
-Focal area of acute to subacute infarction involving the posteromedial left temporal lobe and extending to the adjacent anterior occipital lobe. No evidence for associated hemorrhage or mass effect.
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
Repeat Brain MRI w/wo contrast appreciated
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
follow up Pituitary hormonal testing results noted elevated Prolactin level
Endocrinology eval appreciated
Eventually will require outpt neurosurgery eval
Neurology consult appreciated
Neurology recommend full anticoagulation MARITZA-typically IV heparin drip but treated w/ therapeutic Lovenox per pt's preference
Dr Carty touched base with pt's outpatient cardiology-Dr. Camarena from [place] ([phone]), reported in agreement with plan of care
Continue to monitor neurological status closely
ECHO appreciated no significant change from prior ECHO February 2008
Right lower extremity pain/knee:
Honeycutt's cyst rupture
MRI RLE appreciated complex collection medial head Gastrocnemius muscle suggestive intramuscular hematoma, subq edema lower leg
Orthopedic consult appreciated cont conservative measures pain control, ice, elevation, compression- ok to continue anticoagulation, benefit outweighs risk.
Surgery eval appreciated high risk surgical intervention given need to hold anticoagulation and recent stroke, cont conservative mgmt
Doppler negative for DVT
Mechanical aortic valve replacement/paroxysmal A-fib:
On warfarin as outpatient-INR 1.21 upon admission subtherapeutic
On rate control, metoprolol succinate 25 mg p.o. every evening
Cardiac monitoring
Eventual Lovenox Warfarin Bridge starting February 23 as per neuro, cont therapeutic Lovenox at this time.
Hypertension:
Permissive HTN completed
On beta-mariely calcium channel mariely and XI inhibitor
Monitor blood pressure closely
Prediabetes mellitus:
Obesity
Hemoglobin A1c 6.1
Lifestyle changes modification
Dyslipidemia:
Checking fasting lipids
Anxiety:
Continue benzodiazepines as needed
Mild Anemia
-monitor Hgb
History of aortic aneurysm dissection s/p repair in the past when she was in her 20s
History of intracranial bleed a couple years ago status post right frontotemporal craniotomy.
DVT prophylaxis:
Full dose of Lovenox
CODE STATUS:
Full code
discussed with patient and patient's [facility]
I spent a total of 45 minutes with the patient or on the floor. More than 50% of this time involved counseling and coordination of care.
Anticipated Discharge: > 48 hours
Subjective/Interval History
-
Date of Service: February 19, 2025
No acute distress appears comfortable at rest. RLE swelling tenderness persists.
Objective Data
-
Labs:
Laboratory Results
02/19/25
07:07
WBC 8.6
Hgb 10.3 L
Hct 30.8 L
Plt Count 213
Sodium Pending
Potassium Pending
Chloride Pending
Carbon Dioxide Pending
BUN Pending
Creatinine Pending
Glucose Pending
Calcium Pending
Vital Signs:
Vital Signs
Temp Pulse Resp BP Pulse Ox
98.3 F 87 20 157/79 97
02/19/25 06:20 02/19/25 03:09 02/19/25 03:09 02/19/25 03:09 02/19/25 03:09
I&O
02/18/25 02/19/25 02/20/25
06:59 06:59 06:59
Intake Total 1916 720 / 720
Balance 1916 720 / 720
[2025-02-19 08:05] VITALS: BP 129/71
[2025-02-19 08:18] LABS: Blood Urea Nitrogen 13 mg/dl (7-17); Calcium 9.4 mg/dl (8.4-10.2); Carbon Dioxide 22 mmol/L (22-30); Chloride 108 mmol/L (98-107); Estimated Creatinine Clearance > 125 ml/min; Glucose 140 mg/dl (70-99); Phosphorus 3.7 mg/dl (2.5-4.5); Potassium 4.2 mmol/L (3.5-5.1); Sodium 137 mmol/L (135-145); eGFR > 60.00
[2025-02-19] MEDS: NORVASC 5 MG PO (08:53)
[2025-02-19] MEDS: COLACE 100 MG PO ×2 (08:53→20:54)
[2025-02-19] MEDS: ZESTRIL PO (08:54)
[2025-02-19 10:48] LABS: Iron 60 ug/dl (37-170)
[2025-02-19 10:57] LABS: Percent Saturation 20 % (20-50); Total Iron Binding Capacity 296 ug/dl (265-497)
[2025-02-19 11:00] VITALS: BP 129/67
[2025-02-19 12:06] LABS: Ferritin 75.8 ng/ml (11.1-264.0)
[2025-02-19 12:21] LABS: Vitamin B12 > 1000 pg/ml (239-931)
[2025-02-19 15:01] VITALS: BP 141/81
[2025-02-19] MEDS: LIPITOR PO ×2 (17:06→17:09)
--- NOTE | 2025-02-19 17:21 | CON.GS ---
Medical History
-
Chief Complaint: RLE swelling and pain
History of Present Illness:
Patient is a 54 yo F with a PMH of obesity, HTN, A-fib, s/p AVR with mechanical valve (on Coumadin), aortic aneurysm/dissection with repair, and history of hemorrhagic stroke who presented after she acutely developed vision loss. History is
gained from patient and chart review due to her memory loss around the event. ' states that on the evening of 02/15/2025 she started just staring at him. She then slid off of her chair and had little bit of tightening of her right arm but
was awake. He did not notice seizure activity but was worried she was having a stroke. The patient my evaluation reports that her vision is not normal. Patient does admit that she has not been taking her Coumadin as she should and was worried her
INR is low.' Due to her hemorrhagic stroke her goal INR is around 2.0, INR on admission was 1.1. She was admitted with findings of acute to subacute infarction, w/o hemorrhage, noted on brain MR. During the course of her admission she has developed
some increased RLE swelling. She has undergone a Doppler US was negative for DVT as well as a MRI which demonstrated a 14.3 x 6.5 x 5.0 cm hematoma in the calf. She is currently on Lovenox. She has previously been evaluated by Orthopedic Surgery as
recently as yesterday to address this issue. General Surgery and Orthopedics have asked General Surgery to weigh in on her current issues. Ms. Cheatham reports stability in her calf swelling and pain over the past 24 hours. She has been inable to
tolerate compression due to discomfort. No new neurological symptoms - weakness or numbness of the RLE. No redness or drainage. No fevers. Labs notable for stable Hb and platelets.
Past Medical History
Past Medical History: Arrhythmias (Afib), CVA (Hemorrhagic and ischemic) and HTN
Past Surgical History: Cardiac (mechanical AVR) and Other (Aortic dissection repair)
Social History
Tobacco: Non-Smoker
Alcohol: Occasional
Drug: None
Personal:
Living: With Family
Family History
Family History: Reviewed & Not Pertinent
Allergies / Home Medications
Allergy/AdvReac Type Severity Reaction Status Date / Time
ciprofloxacin [From Cipro] Allergy Unknown Verified 02/15/25 21:46
ciprofloxacin HCl Allergy Unknown Verified 02/15/25 21:46
[From Cipro]
Quinolones Allergy Unknown Verified 02/15/25 21:46
methylprednisolone sodium AdvReac HTN, Rapid Verified 02/15/25 21:46
succinate HR
[From Solu-Medrol]
�Medication �Instructions �Recorded �Confirmed �Type
ascorbic acid (vitamin C) 1,000 mg 1,000 mg PO DAILY 01/11/19 02/16/25 History
tablet (Vitamin C)
milk thistle 150 mg capsule 1 cap PO DAILY 01/11/19 02/16/25 History
warfarin 7.5 mg tablet (Jantoven) 5 mg PO QPM 01/11/19 02/16/25 History
Amlodipine 5 mg PO DAILY 10/26/20 02/16/25 History
Lisinopril 12.5 mg PO DAILY 10/26/20 02/16/25 History
Metoprolol Succinate 25 mg PO 1XD 10/26/20 02/16/25 History
Vitamin D3: 5,000 units PO DAILY 10/26/20 02/16/25 History
Zinc 30 mg PO DAILY 10/26/20 02/16/25 History
Review of Systems
-
A 10 point review of systems was completed, and was negative except as per HPI.
Physical Exam
Vital Signs
Temp Pulse Resp BP Pulse Ox
99.0 F 77 18 141/81 99
02/19/25 15:01 02/19/25 15:01 02/19/25 15:01 02/19/25 15:01 02/19/25 15:01
Body Mass Index (BMI) 32.0
Lab Results
02/19/25 07:07
02/19/25 07:07
WBC 8.6 10^3/uL (4.8-10.8) 02/19/25 07:07
Hgb 10.3 g/dL (12.0-16.0) L 02/19/25 07:07
Hct 30.8 % (37.0-47.0) L 02/19/25 07:07
Plt Count 213 10^3/uL (130-400) 02/19/25 07:07
Abs Immat Gran (auto) 0.0 10^3/uL (0-0.05) 02/15/25 21:46
Neutrophils % 60.1 % (42.2-75.2) 02/15/25 21:46
Physical Exam
General: Well Developed, Well Nourished and No Apparent Distress
HEENT: Normocephalic and Anicteric
Respiratory: Non Labored Respirations
Cardiac: Regular Rhythm
GI: Soft, Non Tender and Non Distended
Musculoskeletal: Other (RLE with swelling from ankle to distal thigh, slightly tense calf, no erythema, no skin necrosis, no bulla, faint ecchymosis (most notable at posterior knee), no drainage, tender to deeper palpation, +2 edema, LLE
anterior/nuno with more mild swelling and faint soft ecchymosis )
Skin: Warm, Dry and Other (No coolnees or palor of LE)
Neuro: Other (sensation intact to light touch of RLE, motor 4/5 (limited by pain))
Data Reviewed
-
Ultrasound: Report Reviewed by me
MRI: Image Personally Visualized and interpreted and Report Reviewed by me
Labs: Labs Reviewed by me
Assessment / Plan
-
Patient is a 54 yo F p/w likely traumatic hematoma in the setting of her recent ischemic CVA with fall and active anticoagulation
Previous management and documentation by Orthopedic Surgery reviewed. Overall agree no changes in management from a general surgery perspective.
The natural history and pathophysiology of hematomas was discussed with the patient. Role of surgical evacuation of hematomas was reviewed. No evidence of skin necrosis or infection which would be more pressing. Options for management including
continued medical management with compression, ice, and elevation versus surgical evacuation were reviewed. Surgical drainage would involve holding her Lovenox for at least a 24-hour period of time (12 pre- and 12 post-); and potentially longer if
any issues with postoperative bleeding and dressing changes. Given her recent ischemic stroke she is at increased risk for worsening of her current neurologic state while off anticoagulation. Potential for IR guided drainage or aspiration was
considered, however, this is oftentimes incomplete and potentially risks seeding/infecting recurrent hematoma. Continue with medical management and hopeful reabsorption of her hematoma. Worrisome signs and symptoms reviewed. All questions
answered.
-- No plans for surgical evacuation as holding anticoagulation for this procedure and risks of worsening ischemic CVA outweigh benefits of clot evacuation
-- Continue to monitor calf swelling closely, recommend measuring calf diameter for objective findings
-- Would minimize ambulation and movement of RLE for at least 1 week to limit clot disruption and continued bleeding
-- Compression with XI, elevation, ice
--- NOTE | 2025-02-19 19:00 | CON.MD ---
Consultation - Medical
-
54 y.o. female with obesity, HTN, s/p AVR with mechanical valve for bicuspid aortic valve (on Coumadin), aortic aneurysm/dissection with repair, and history of hemorrhagic stroke in 2023 who presented after she acutely developed vision loss.
Found to have ischemic penumbra in left occipital lobe. 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 Prolactin elevated to 55, but other hormones intact thus far, excepting possibly
inappropriately normal gonadotropins for menopause. Would round out the workup with 8 a.m. cortisol, IGF-1, serial prolactin dilutions, and free T4 with repeat TSH. Consider dex suppression test as an outpatient to rule out [place]'s. Suspect
nonfunctioning macroadenoma of pituitary gland. Prolactin elevation most likely from stalk compressive effect. Suspect visual loss from occipital lobe ischemia and not from optic chiasm involvement of tumor. Nonetheless, she will require
neurosurgery consultation as an outpatient. Pt given our contact info to make appt following discharge. Aforementioned orders entered. Thank you and please call with questions.
[2025-02-19 19:35] VITALS: BP 140/69
[2025-02-19] MEDS: TOPROL XL 25 MG PO (22:39)
[2025-02-19 23:03] VITALS: BP 138/78
[2025-02-20] MEDS: TYLENOL 650 MG PO ×4 (03:06→21:52)
[2025-02-20 03:15] VITALS: BP 133/73
[2025-02-20 06:21] LABS: Hemoglobin 9.3 g/dL (12.0-16.0); Mean Corp Hgb Conc. 33.2 g/dL (33.0-37.0); Mean Corpuscular Hgb 33.8 pg (27.0-31.0); Mean Corpuscular Volume 101.8 fL (81.0-99.0); Mean Platelet Volume 12.2 fL (7.4-10.4); Platelet Count 210 10^3/uL (130-400); Red Blood Cell Count 2.75 10^6/uL (4.20-5.40); Red Cell Dist. Width 13.2 % (11.5-14.5)
[2025-02-20 06:41] LABS: Blood Urea Nitrogen 10 mg/dl (7-17); Calcium 9.1 mg/dl (8.4-10.2); Carbon Dioxide 24 mmol/L (22-30); Chloride 107 mmol/L (98-107); Estimated Creatinine Clearance 111 ml/min; Glucose 116 mg/dl (70-99); Magnesium 2.1 mg/dl (1.6-2.3); Phosphorus 3.8 mg/dl (2.5-4.5); Sodium 137 mmol/L (135-145); eGFR > 60.00
[2025-02-20 06:58] LABS: Free T4 0.85 ng/dl (0.78-2.19); Prolactin 57.4 ng/ml (3.0-18.6)
--- NOTE | 2025-02-20 07:03 | W.PN.HOSP.TC ---
Today's Communication/Plan
-
lovenox
limited bedrest, bedside commode ok, hold PT/OT eval/tx
RLE elevation as much as possible, ICE packs Q4, prn Tylenol switched to scheduled
pain control
check CT as per Surgery
Assessment / Plan
Assessment / Plan
Physical exam:
General: No acute distress, appears comfortable at this time.
HEENT: Normocephalic, Atraumatic and Moist Mucous Membranes
Respiratory: Clear to Auscultation; Negative Wheezes, Rales or Rhonchi
Cardiac: Regular Rhythm and S1/S2
GI: Soft, Nontender and Nondistended
Musculoskeletal: Edema right knee and lower extremity associated with pain and tenderness. No erythema. Pulses palpable on both distal extremities. No Clubbing, No Cyanosis.
Neuro: AOx3 conversant coherent
Psych: Calm
A/P:54F HTN mech AVR afib on warfarin hx ICH s/p craniotomy here for evaluation CVA with associate subtherapeutic INR further complicated with RLE hematoma. 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
Acute stroke:
Patient at high risk of neurological clinical deterioration from either progression of stroke or hemorrhagic conversion-either way she needs to be monitored very closely.
CT head noted prior craniotomy and concerns for mass within the sella w/ suprasellar extension
CT perfusion suggesting left occipital ischemic penumbra with no area of core infarction
CTA of the head and neck appreciated no significant carotid stenosis b/l, sella mass also noted
Brain MRI w/o contrast appreciated
-Focal area of acute to subacute infarction involving the posteromedial left temporal lobe and extending to the adjacent anterior occipital lobe. No evidence for associated hemorrhage or mass effect.
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
Repeat Brain MRI w/wo contrast appreciated
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
follow up Pituitary hormonal testing results noted elevated Prolactin level
Endocrinology eval appreciated
Eventually will require outpt neurosurgery eval
Neurology consult appreciated
Neurology recommend full anticoagulation MARITZA-typically IV heparin drip but treated w/ therapeutic Lovenox per pt's preference
Dr Carty touched base with pt's outpatient cardiology-Dr. Camarena from [place] ([phone]), reported in agreement with plan of care
Continue to monitor neurological status closely
ECHO appreciated no significant change from prior ECHO February 2008
Right lower extremity pain/knee:
Honeycutt's cyst rupture
MRI RLE appreciated complex collection medial head Gastrocnemius muscle suggestive intramuscular hematoma, subq edema lower leg
Orthopedic consult appreciated cont conservative measures pain control, ice, elevation, compression- ok to continue anticoagulation, benefit outweighs risk.
Surgery eval appreciated high risk surgical intervention given need to hold anticoagulation and recent stroke, cont conservative mgmt
Doppler negative for DVT
limited bed rest, bedside commode ok, hold PT/OT, lidocaine patches added, Tylenol switched from prn to Q4HWA, check CT as per surgery
Mechanical aortic valve replacement/paroxysmal A-fib:
On warfarin as outpatient-INR 1.21 upon admission subtherapeutic
On rate control, metoprolol succinate 25 mg p.o. every evening
Cardiac monitoring
Eventual Lovenox Warfarin Bridge starting February 23 as per neuro, cont therapeutic Lovenox at this time.
Hypertension:
Permissive HTN completed
On beta-mariely calcium channel mariely and XI inhibitor
Monitor blood pressure closely
Prediabetes mellitus:
Obesity
Hemoglobin A1c 6.1
Lifestyle changes modification
Dyslipidemia:
Checking fasting lipids
Anxiety:
Continue benzodiazepines as needed
Mild Anemia
-monitor Hgb
History of aortic aneurysm dissection s/p repair in the past when she was in her 20s
History of intracranial bleed a couple years ago status post right frontotemporal craniotomy.
DVT prophylaxis:
Full dose of Lovenox
CODE STATUS:
Full code
discussed with patient and patient's [facility]
I spent a total of 50 minutes with the patient or on the floor. More than 50% of this time involved counseling and coordination of care.
Anticipated Discharge: > 48 hours
Subjective/Interval History
-
Date of Service: February 20, 2025
worsening pain swelling RLE. patient and also note increased confusion- likely related to pain meds and sleep disturbance.
Objective Data
-
Labs:
Laboratory Results
02/20/25
05:30
WBC 9.0
Hgb 9.3 L
Hct 28.0 L
Plt Count 210
Sodium 137
Potassium 4.0
Chloride 107
Carbon Dioxide 24
BUN 10
Creatinine 0.7
Glucose 116 H
Calcium 9.1
Vital Signs:
Vital Signs
Temp Pulse Resp BP Pulse Ox
98.5 F 79 16 133/73 99
02/20/25 03:15 02/20/25 03:15 02/20/25 03:15 02/20/25 03:15 02/20/25 03:15
I&O
02/19/25 02/20/25 02/21/25
06:59 06:59 06:59
Intake Total 720 / 720 2700 / 2700
Balance 720 / 720 2700 / 2700
[2025-02-20 07:11] LABS: TSH 4.89 uIU/ml (0.47-4.68)
[2025-02-20 07:13] LABS: Cortisol, Random 19.4 ug/dl; Estradiol 123.2 pg/ml
[2025-02-20] MEDS: LOVENOX 90 MG SC ×2 (07:24→17:50)
[2025-02-20 07:35] VITALS: BP 131/74
--- NOTE | 2025-02-20 07:43 | W.PN.UPDATE ---
Update Note
Progress Note Update
Patient seen on morning rounds. She reports continued feelings of tightness and tenderness in her calf, but states her symptoms have been stable overall over the last few days. Directed exam of the right lower extremity reveals edema about the
distal thigh and calf. Her calf is firm to touch but is only mildly tender to palpation. She is able to wiggle her toes, and plantar/dorsiflex ankle. NVID.
At this time, there are no signs of compartment syndrome, and I would recommend continuing with non-operative intervention. I did discuss concerning symptoms with Haydee this morning including significantly increased swelling, pain or instability
to wiggle toes/move ankle. She may be out of bed as tolerated once deemed appropriate by primary. I encouraged gentle stretching of her calf. Continue ice and pain control as needed. Orthopedics will sign off. Please reach out with any additional
questions or concerns.
[2025-02-20] MEDS: COLACE 100 MG PO (07:56)
[2025-02-20] MEDS: NORVASC 5 MG PO (07:56)
[2025-02-20] MEDS: ZESTRIL PO (07:57)
--- NOTE | 2025-02-20 08:48 | W.PN.GS2 ---
Today's Communication / Plan
-
CTA right lower extremity to rule out active bleed
Assessment / Plan
-
This is a 54-year-old female who presents with a traumatic hematoma to her right lower extremity in the setting of an ischemic CVA currently on therapeutic anticoagulation. Clinically worse on exam and hemoglobin now 9.3 from 12 on admission
concerning for active bleeding.
Will get a urgent CTA of the right lower extremity to rule out active bleed
Breakthrough Dilaudid ordered, continue pain control.
Appreciate neurology recommendations
General Surgery will continue to follow
Time Spent
Total Time Spent with Patient (in minutes): 20
Subjective Data
-
Date of Service: February 20, 2025
Interval Events:
No acute events overnight. Did not sleep well, pain worse with increased swelling of the right lower extremity.
Objective Data
-
Intake and Output
02/19/25 02/20/25 02/21/25
06:59 06:59 06:59
Intake Total 720 / 720 2700 / 2700
Balance 720 / 720 2700 / 2700
Intake:
Oral fluids 720 / 720 2700 / 2700
Other:
Number of approximated MODERATE 3 5
amounts of urine
Number of approximated LARGE 2
amounts of urine
Vital Signs
Temp Pulse Resp BP Pulse Ox
98.4 F 77 14 131/74 96
02/20/25 07:35 02/20/25 07:56 02/20/25 07:35 02/20/25 07:57 02/20/25 07:35
Lab Results
02/20/25 05:30
02/20/25 05:30
Calcium 9.1 mg/dl (8.4-10.2) 02/20/25 05:30
Phosphorus 3.8 mg/dl (2.5-4.5) 02/20/25 05:30
Magnesium 2.1 mg/dl (1.6-2.3) 02/20/25 05:30
Total Bilirubin 0.8 mg/dl (0.2-1.3) 02/15/25 21:46
AST 31 U/L (14-36) 02/15/25 21:46
ALT 35 U/L (0-35) 02/15/25 21:46
Alkaline Phosphatase 75 U/L (38-126) 02/15/25 21:46
Total Protein 7.3 g/dl (6.3-8.2) 02/15/25 21:46
Albumin 4.7 g/dl (3.5-5.0) 02/15/25 21:46
Physical Exam
-
GENERAL/NEURO: Awake, Alert, nelson, uncomfortable
CHEST: Unlabored breathing on RA
EXTREMITIES: Right lower extremity swelling from the ankle to the mid thigh, tense and warm calf with significant bruising beyond the previously demarcated marker line moving to a more dependent location of the thigh as the leg is elevated. Tender
to palpation. No evidence of skin ischemia or necrosis. Motor sensation intact though she has pain with movement of the foot due to the pressure in the calf. Stable bruising noted in the left lower extremity as well.
Patient has a vo catheter: No
Patient has a central line: No
[2025-02-20] MEDS: DILAUDID 1 MG IV ×2 (08:57→13:45)
[2025-02-20] MEDS: LIDOCAINE 4% PATCH 2 PATCH TOPICAL (10:13)
[2025-02-20] MEDS: MIRALAX 17 GRAMS PO (10:13)
[2025-02-20 10:48] VITALS: BP 123/75
[2025-02-20 12:37] LABS: Hematocrit 32.1 % (37.0-47.0); Hemoglobin 10.9 g/dL (12.0-16.0)
[2025-02-20 15:55] VITALS: BP 155/91
--- NOTE | 2025-02-20 16:05 | DOWNTIME ---
There was a [employer] Downtime on 02/20/2025 from 1230 to 02/20/2025 at 1550. Downtime documentation of patient's care, including medication administrations, has been reconciled in the electronic record per guidelines. Refer to the
patient's paper chart under the miscellaneous tab to see printed paper medication records and downtime forms.
[2025-02-20] MEDS: LIPITOR PO (18:10)
--- NOTE | 2025-02-20 18:40 | VATNOTE ---
Pt states she had PCN remove the IV from her R antecubital fossa earlier in the day because it was looking infected. Visualized site and new gauze applied. Discussed with PCN. Heat applied to site and PCN to contact MD to evaluate.
[2025-02-20] MEDS: SENOKOT-S 1 TABLET PO (21:51)
[2025-02-20 21:52] LABS: % Basophils 0.8 % (0-2); % Eosinophils 1.8 % (0-6); % Immature Granulocytes 0.6 % (0-0.5); % Lymphocytes 17.1 % (20.5-51.1); % Monocytes 14.6 % (1.7-9.3); % Neutrophils 65.1 % (42.2-75.2); Absolute Basophils 0.1 10^3/uL (0-0.2); Absolute Eosinophils 0.2 10^3/uL (0-0.7); Absolute Immature Granulocytes 0.1 10^3/uL (0-0.05); Absolute Lymphocytes 1.8 10^3/uL (1.2-3.4); Absolute Monocytes 1.5 10^3/uL (0.1-0.6); Absolute Neutrophils 6.8 10^3/uL (1.4-6.5); Hematocrit 27.8 % (37.0-47.0); Hemoglobin 9.4 g/dL (12.0-16.0); Mean Corp Hgb Conc. 33.8 g/dL (33.0-37.0); Mean Corpuscular Hgb 34.3 pg (27.0-31.0); Mean Corpuscular Volume 101.5 fL (81.0-99.0); Mean Platelet Volume 11.8 fL (7.4-10.4); Nucleated Red Blood Cells % 0 %; Platelet Count 233 10^3/uL (130-400); Red Blood Cell Count 2.74 10^6/uL (4.20-5.40); Red Cell Dist. Width 13.3 % (11.5-14.5); White Blood Cell Count 10.4 10^3/uL (4.8-10.8)
--- NOTE | 2025-02-20 22:01 | VATNOTE ---
CONTACTED TO OBTAIN ORDERED LAB WORK BY PCN. PT REPORTS REASON FOR CURRENT BLOOD CULTURE ORDERS IS DUE TO 'INFECTED' IV ACCESS IN RAC. PT REPORTS SHE REQUESTED PCN REMOVE IV SITE IN RAC TODAY AND PUS WAS NOTED AT THAT TIME. PCN STATES QUENCHING CAR OPERATOR MADE AWARE
AND DID EVALUATE PT AT THE BEDSIDE. SITE APPEARS SLIGHTLY PINK AND PT REPORTS MILD TENDERNESS. ARM IS ELEVATED AND K-PAD TO BE APPLIED. VAT TO MONITOR. BLOOD CULTURES AND CBC DRAWN ORDERED.
[2025-02-20] MEDS: ZOSYN 50 IV (23:24)
[2025-02-20] MEDS: TOPROL XL 25 MG PO (23:27)
[2025-02-20 23:37] VITALS: BP 142/87
[2025-02-20] MEDS: ROXICODONE 5 MG PO (23:39)
--- NOTE | 2025-02-21 00:01 | W.PN.UPDATE ---
Update Note
Progress Note Update
~1999 RN TT to let me know pt had a R arm infiltrate? nothing was running through the IV at the time- K-pad ordered
~2029 on the floor to assess pt. R ac site with minimal redness- no exudate noted on the dressing just a scant about of blood- from the IV removal. No cord palpable or increased swelling/edema on exam. Pt is worried about a blood infection- speaking
on the phone with�Dr. Adán Murray (pts o/p regulatory attorney). Pt without fevers, tachycardia, or tachypnea. I personally spoke on the phone with Dr. Murray ([phone]) and discussed my assessment and plan of care�(CBC and blood cultures)and pts
concerns.- he recommended also starting her on empiric antibiotics in the mean time. WBC 10.4 on check- pt concerned for mechanical AVR HX. Syd added.
[2025-02-21] MEDS: TYLENOL PO ×2 (00:59→04:15)
[2025-02-21] MEDS: DILAUDID 1 MG IV ×2 (03:43→07:09)
[2025-02-21 05:36] LABS: Hematocrit 26.4 % (37.0-47.0); Hemoglobin 8.9 g/dL (12.0-16.0); Mean Corp Hgb Conc. 33.7 g/dL (33.0-37.0); Mean Corpuscular Hgb 34.8 pg (27.0-31.0); Mean Corpuscular Volume 103.1 fL (81.0-99.0); Mean Platelet Volume 12.2 fL (7.4-10.4); Platelet Count 231 10^3/uL (130-400); Red Blood Cell Count 2.56 10^6/uL (4.20-5.40); Red Cell Dist. Width 13.3 % (11.5-14.5); White Blood Cell Count 9.1 10^3/uL (4.8-10.8)
[2025-02-21] MEDS: LOVENOX 90 MG SC ×2 (05:59→17:48)
[2025-02-21] MEDS: ZOSYN 50 IV ×4 (06:00→23:46)
[2025-02-21 06:30] LABS: Blood Urea Nitrogen 14 mg/dl (7-17); Calcium 9.3 mg/dl (8.4-10.2); Carbon Dioxide 24 mmol/L (22-30); Chloride 108 mmol/L (98-107); Estimated Creatinine Clearance 111 ml/min; Glucose 150 mg/dl (70-99); Magnesium 2.1 mg/dl (1.6-2.3); Phosphorus 3.9 mg/dl (2.5-4.5); Potassium 4.4 mmol/L (3.5-5.1); Sodium 138 mmol/L (135-145); eGFR > 60.00
--- NOTE | 2025-02-21 07:13 | W.PN.HOSP.TC ---
Today's Communication/Plan
-
compressive wraps, ice, elevation RLE
cont pain control, adjusted oxycodone prn mod severe pain, IV dilaudid remains available for severe breakthrough pain
monitor H&H
cont zosyn for now, follow blood cultures
Assessment / Plan
Assessment / Plan
Physical exam:
General: No acute distress, appears comfortable at this time.
HEENT: Normocephalic, Atraumatic and Moist Mucous Membranes
Respiratory: Clear to Auscultation; Negative Wheezes, Rales or Rhonchi
Cardiac: Regular Rhythm and S1/S2
GI: Soft, Nontender and Nondistended
Musculoskeletal: Edema right knee and lower extremity associated with pain and tenderness. No erythema. Pulses palpable on both distal extremities. No Clubbing, No Cyanosis.
Neuro: AOx3 conversant coherent
Psych: Calm
A/P:54F HTN mech AVR afib on warfarin hx ICH s/p craniotomy here for evaluation CVA with associate subtherapeutic INR further complicated with RLE hematoma. 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
Acute stroke:
Patient at high risk of neurological clinical deterioration from either progression of stroke or hemorrhagic conversion-either way she needs to be monitored very closely.
CT head noted prior craniotomy and concerns for mass within the sella w/ suprasellar extension
CT perfusion suggesting left occipital ischemic penumbra with no area of core infarction
CTA of the head and neck appreciated no significant carotid stenosis b/l, sella mass also noted
Brain MRI w/o contrast appreciated
-Focal area of acute to subacute infarction involving the posteromedial left temporal lobe and extending to the adjacent anterior occipital lobe. No evidence for associated hemorrhage or mass effect.
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
Repeat Brain MRI w/wo contrast appreciated
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
follow up Pituitary hormonal testing results noted elevated Prolactin level
Endocrinology eval appreciated
Eventually will require outpt neurosurgery eval
Neurology consult appreciated
Neurology recommend full anticoagulation MARITZA-typically IV heparin drip but treated w/ therapeutic Lovenox per pt's preference
Dr Carty touched base with pt's outpatient cardiology-Dr. Camarena from [place] ([phone]), reported in agreement with plan of care
Continue to monitor neurological status closely
ECHO appreciated no significant change from prior ECHO February 2008
Right lower extremity pain/knee:
Honeycutt's cyst rupture
MRI RLE appreciated complex collection medial head Gastrocnemius muscle suggestive intramuscular hematoma, subq edema lower leg
Orthopedic consult appreciated cont conservative measures pain control, ice, elevation, compression- ok to continue anticoagulation, benefit outweighs risk.
Surgery eval appreciated high risk surgical intervention given need to hold anticoagulation and recent stroke, cont conservative mgmt
Doppler negative for DVT
limited bed rest, bedside commode ok, hold PT/OT, lidocaine patches added, Tylenol switched from prn to Q4HWA, oxycodone prn mod severe pain, IV Dilaudid severe breakthrough pain
CT RLE noted right calf hematoma 18.7, no active bleeding noted, Small nonocclusive central filling defect within the tibioperoneal trunk as above, most consistent with embolus.
02/21/25 Started overnight on abx d/t pt's concern bloodstream infection with hx Mechanical Aortic valve
overall clinical presentation (no significant fever or white count, no signs of sepsis) is not suggestive, though patient notes improvement in symptoms since start abx zosyn
will cont zosyn for now, follow blood cultures, so far prelim pos for gram- bacilli in one anaerobic bottle, suspect contaminant
Mechanical aortic valve replacement/paroxysmal A-fib:
On warfarin as outpatient-INR 1.21 upon admission subtherapeutic
On rate control, metoprolol succinate 25 mg p.o. every evening
Cardiac monitoring
Eventual Lovenox Warfarin Bridge starting February 23 as per neuro, cont therapeutic Lovenox at this time.
Hypertension:
Permissive HTN completed
On beta-mariely calcium channel mariely and XI inhibitor
Monitor blood pressure closely
Prediabetes mellitus:
Obesity
Hemoglobin A1c 6.1
Lifestyle changes modification
Dyslipidemia:
Checking fasting lipids
Anxiety:
Continue benzodiazepines as needed
Mild Anemia
-monitor Hgb
History of aortic aneurysm dissection s/p repair in the past when she was in her 20s
History of intracranial bleed a couple years ago status post right frontotemporal craniotomy.
DVT prophylaxis:
Full dose of Lovenox
CODE STATUS:
Full code
discussed with patient and patient's [facility]
I spent a total of 50 minutes with the patient or on the floor. More than 50% of this time involved counseling and coordination of care.
Anticipated Discharge: 24 - 48 hours
Subjective/Interval History
-
Date of Service: February 21, 2025
Patient reports improvement in overall symptoms since start antibiotics, including RLE pain swelling.
Objective Data
-
Labs:
Laboratory Results
02/20/25 02/21/25
21:40 05:18
WBC 10.4 9.1
Hgb 9.4 L 8.9 L
Hct 27.8 L 26.4 L
Plt Count 233 231
Sodium 138
Potassium 4.4
Chloride 108 H
Carbon Dioxide 24
BUN 14
Creatinine 0.7
Glucose 150 H
Calcium 9.3
Vital Signs:
Vital Signs
Temp Pulse Resp BP Pulse Ox
98.1 F 83 16 142/87 98
02/20/25 23:37 02/20/25 23:37 02/20/25 23:37 02/20/25 23:37 02/20/25 23:37
I&O
02/20/25 02/21/25 02/22/25
06:59 06:59 06:59
Intake Total 2700 / 2700 1440 / 1440
Balance 2700 / 2700 1440 / 1440
[2025-02-21] MEDS: TYLENOL 650 MG PO ×5 (07:23→23:46)
[2025-02-21] MEDS: MIRALAX PO (07:23)
[2025-02-21] MEDS: NORVASC 5 MG PO (07:24)
[2025-02-21] MEDS: LIDOCAINE 4% PATCH 2 PATCH TOPICAL (07:24)
[2025-02-21] MEDS: ZESTRIL 10 MG PO (07:24)
[2025-02-21] MEDS: SENOKOT-S PO ×2 (07:25→20:17)
[2025-02-21 07:36] VITALS: BP 142/86
--- NOTE | 2025-02-21 08:34 | W.PN.GS2 ---
Today's Communication / Plan
-
`
Assessment / Plan
-
Assessment: 54-year-old female who presents with a traumatic hematoma to her right lower extremity in the setting of an ischemic CVA currently on therapeutic anticoagulation (Lovenox 90 mg twice daily subcu).
AFVSS
Hemoglobin slowly drifting and currently 8.9 from 9[address] angio right lower extremity completed yesterday 02/20/2025. Calf hematoma has enlarged in size compared to prior MRI imaging but there was no active arterial extravasation of contrast.
Patient reports subjective improvement over the last 12 hours; no signs of right lower extremity compartment syndrome. Motor and sensory intact through the foot.
Plan: Continue medical/expectant management of hematoma given no signs of extremity compartment syndrome, no extravasation on CT angio, no overlying skin necrosis nor clear signs of infectious component (although patient reports subjective
improvement since starting on Zosyn)
Patient confirms strong desire for nonoperative management which would be preferential from a risk-benefit as well at this point
Patient remains on therapeutic anticoagulation in setting of recent ischemic CVA
Continue to follow H&H
Okay to ambulate but elevate extremity while resting
Will follow
Subjective Data
-
Date of Service: February 21, 2025
Patient seen and examined in follow-up this a.m.
Reports significant improvement in right lower extremity pain/discomfort after being started on antibiotics yesterday evening.
Objective Data
-
Intake and Output
02/20/25 02/21/25 02/22/25
06:59 06:59 06:59
Intake Total 2700 / 2700 1440 / 1440
Balance 2700 / 2700 1440 / 1440
Intake:
Oral fluids 2700 / 2700 1440 / 1440
Other:
Number of approximated MODERATE 5 1
amounts of urine
Number of approximated LARGE 2
amounts of urine
Vital Signs
Temp Pulse Resp BP Pulse Ox
98.1 F 84 17 142/86 97
02/21/25 07:36 02/21/25 07:36 02/21/25 07:36 02/21/25 07:36 02/21/25 07:36
Lab Results
02/21/25 05:18
02/21/25 05:18
Calcium 9.3 mg/dl (8.4-10.2) 02/21/25 05:18
Phosphorus 3.9 mg/dl (2.5-4.5) 02/21/25 05:18
Magnesium 2.1 mg/dl (1.6-2.3) 02/21/25 05:18
Total Bilirubin 0.8 mg/dl (0.2-1.3) 02/15/25 21:46
AST 31 U/L (14-36) 02/15/25 21:46
ALT 35 U/L (0-35) 02/15/25 21:46
Alkaline Phosphatase 75 U/L (38-126) 02/15/25 21:46
Total Protein 7.3 g/dl (6.3-8.2) 02/15/25 21:46
Albumin 4.7 g/dl (3.5-5.0) 02/15/25 21:46
Physical Exam
-
NAD AAO x 3 resting in hospital bed
R LE: Calf tightness on palpation and tenderness. Visible ecchymosis. Extremity warm with good capillary refill all the way through to the foot. No paresthesias and sensory intact. Motor intact as well. Palpable dorsalis pedis pulse.
--- NOTE | 2025-02-21 12:00 | VATNOTE ---
Right AC area with minimal redness, tender to touch per patient. No drainage noted. Patient states area looks 'much improved' from yesterday.
--- NOTE | 2025-02-21 15:01 | PTCARENOTE ---
Spoke to patients Luis Cheatham this morning after he called the transfer and pumphouse operator chief wanting to speak to Dr Devlin over concerns that his is 'critical' and he wanted to make sure he was doing blood work to monitor her WBC and antibiotics. Able to
clear up some misunderstandings by explaining that the patient is getting IV antibiotics currently and has had blood work. Notified Dr. Devlin over his request for an update. Met with patient as well, she admittedly states she is not thinking clearly
and has herself worked up thinking she has a blood stream infection. Provided emotional support. States the care has been good and is complimentary of all the nursing staff she has had. Checked on her again this afternoon and met with . They
are satisfied with care and communication and feel positive about her healing process. Both were appreciative of Dr. Neville update and communication with them.
[2025-02-21 15:07] VITALS: BP 121/81
[2025-02-21 15:35] VITALS: BP 121/81; PULSE 75; O2SAT 100
[2025-02-21] MEDS: ROXICODONE 5 MG PO ×2 (15:54→23:46)
[2025-02-21] MEDS: LIPITOR PO (16:58)
[2025-02-21] MEDS: TOPROL XL PO (22:07)
[2025-02-21 22:56] VITALS: BP 137/68
--- NOTE | 2025-02-22 00:25 | PTCARENOTE ---
Patient reporting to primary RN that she is having pain in her right leg and is concerned that the 'color' of her leg is changing. Patient also reported to primary RN that she is feeling some SOB and chest pain, patient requesting to speak to
additional staff about her concerns. This RN along with primary RN went in to address patient's concerns. Patient reassured that the coloring of the ecchymosis is normal and appears to be healing. Leg appears swollen, extremity elevated on pillows.
Patient offered pain medication which she took after some medication education was provided. Patient c/o 'some pressure' in chest. EKG done, and picture sent to [facility]. No new orders received at this time. Primary RN to continue to
monitor.
[2025-02-22 03:08] LABS: IGF-1 Z Score Calculation -1.9; Insulin-like Growth Factor I 56 ng/mL (51-233)
[2025-02-22] MEDS: TYLENOL PO (03:09)
[2025-02-22] MEDS: ZOSYN 50 IV ×2 (05:58→12:07)
[2025-02-22] MEDS: LOVENOX 90 MG SC ×2 (05:59→17:19)
[2025-02-22 07:05] LABS: Hematocrit 25.4 % (37.0-47.0); Hemoglobin 8.6 g/dL (12.0-16.0); Mean Corp Hgb Conc. 33.9 g/dL (33.0-37.0); Mean Corpuscular Hgb 34.5 pg (27.0-31.0); Mean Platelet Volume 12.2 fL (7.4-10.4); Platelet Count 253 10^3/uL (130-400); Red Blood Cell Count 2.49 10^6/uL (4.20-5.40); Red Cell Dist. Width 13.4 % (11.5-14.5); White Blood Cell Count 8.5 10^3/uL (4.8-10.8)
[2025-02-22 07:26] VITALS: BP 132/75
[2025-02-22 07:45] LABS: Procalcitonin 0.05 ng/ml (0.0-0.25)
[2025-02-22 07:56] LABS: Blood Urea Nitrogen 15 mg/dl (7-17); Calcium 8.8 mg/dl (8.4-10.2); Carbon Dioxide 23 mmol/L (22-30); Chloride 108 mmol/L (98-107); Estimated Creatinine Clearance 111 ml/min; Glucose 119 mg/dl (70-99); Magnesium 2.1 mg/dl (1.6-2.3); Phosphorus 3.5 mg/dl (2.5-4.5); Potassium 4.1 mmol/L (3.5-5.1); Sodium 137 mmol/L (135-145); eGFR > 60.00
[2025-02-22] MEDS: NORVASC 5 MG PO (08:23)
[2025-02-22] MEDS: LIDOCAINE 4% PATCH 2 PATCH TOPICAL (08:24)
[2025-02-22] MEDS: TYLENOL 650 MG PO ×3 (08:24→15:32)
[2025-02-22] MEDS: ZESTRIL PO (08:24)
[2025-02-22] MEDS: SENOKOT-S PO (08:25)
[2025-02-22] MEDS: MIRALAX PO (08:25)
[2025-02-22] MEDS: ROXICODONE 5 MG PO ×2 (08:26→15:32)
--- NOTE | 2025-02-22 08:28 | PTOTSP ---
Pt's activity orders are for bedside commode, which pt has been performing with use of walker. IF pt is cleared to increase activity, please d/w pt and update orders.
--- NOTE | 2025-02-22 08:46 | W.PN.HOSP.TC ---
Today's Communication/Plan
-
Transfer to [facility] when bed available, patient's professional development instructor Dr Camarena accepting for higher level of care and continuity
cont XI compression wrap, Elevation, pain control
Ok to particpate in PT/OT
cont abx as per ID
follow cultures
Assessment / Plan
Assessment / Plan
Physical exam:
General: No acute distress, appears comfortable at this time.
HEENT: Normocephalic, Atraumatic and Moist Mucous Membranes
Respiratory: Clear to Auscultation; Negative Wheezes, Rales or Rhonchi
Cardiac: Regular Rhythm and S1/S2
GI: Soft, Nontender and Nondistended
Musculoskeletal: Edema right knee and lower extremity associated with pain and tenderness. No erythema. Pulses palpable on both distal extremities. No Clubbing, No Cyanosis.
Neuro: AOx3 conversant coherent
Psych: Calm
A/P:54F HTN mech AVR afib on warfarin hx ICH s/p craniotomy here for evaluation CVA with associate subtherapeutic INR further complicated with RLE hematoma. 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
Acute stroke:
Patient at high risk of neurological clinical deterioration from either progression of stroke or hemorrhagic conversion-either way she needs to be monitored very closely.
CT head noted prior craniotomy and concerns for mass within the sella w/ suprasellar extension
CT perfusion suggesting left occipital ischemic penumbra with no area of core infarction
CTA of the head and neck appreciated no significant carotid stenosis b/l, sella mass also noted
Brain MRI w/o contrast appreciated
-Focal area of acute to subacute infarction involving the posteromedial left temporal lobe and extending to the adjacent anterior occipital lobe. No evidence for associated hemorrhage or mass effect.
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
Repeat Brain MRI w/wo contrast appreciated
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
follow up Pituitary hormonal testing results noted elevated Prolactin level
Endocrinology eval appreciated
Eventually will require outpt neurosurgery eval
Neurology consult appreciated
Neurology recommended full anticoagulation MARITZA-typically IV heparin drip but treated w/ therapeutic Lovenox per pt's preference
Dr Carty touched base with pt's outpatient cardiology-Dr. Camarena from [facility] ([phone]), reported in agreement with plan of care
Continue to monitor neurological status closely
ECHO appreciated no significant change from prior ECHO February 2008
Right lower extremity pain/knee:
Honeycutt's cyst rupture
MRI RLE appreciated complex collection medial head Gastrocnemius muscle suggestive intramuscular hematoma, subq edema lower leg
Orthopedic consult appreciated cont conservative measures pain control, ice, elevation, compression- ok to continue anticoagulation, benefit outweighs risk.
Surgery eval appreciated high risk surgical intervention given need to hold anticoagulation and recent stroke, cont conservative mgmt
Doppler negative for DVT
limited bed rest, bedside commode ok, hold PT/OT, lidocaine patches added, Tylenol switched from prn to Q4HWA, oxycodone prn mod severe pain, IV Dilaudid severe breakthrough pain
CT RLE noted right calf hematoma 18.7, no active bleeding noted, Small nonocclusive central filling defect within the tibioperoneal trunk as above, most consistent with embolus.
02/21/25 Started overnight on abx d/t pt's concern bloodstream infection with hx Mechanical Aortic valve, recent IV infiltration R antecubital phlebitis (IV removed), trend up in temp to 99.3 and wbc 10.4 (though both values in normal range)
overall clinical presentation (no significant fever or white count, no signs of sepsis) not suggestive, though patient notes improvement in symptoms since start abx zosyn
blood cultures, so far prelim pos for gram- bacilli in one anaerobic bottle, suspect contaminant
ID consult appreciated cultures repeated and Zosyn switched to PO metro 500 mg TID
Mechanical aortic valve replacement/paroxysmal A-fib:
On warfarin as outpatient-INR 1.21 upon admission subtherapeutic
On rate control, metoprolol succinate 25 mg p.o. every evening
Cardiac monitoring
Eventual Lovenox Warfarin Bridge starting February 23 as per neuro, cont therapeutic Lovenox at this time.
Hypertension:
Permissive HTN completed
On beta-mariely calcium channel mariely and XI inhibitor
BP relatively well controlled at this time
Prediabetes mellitus:
Obesity
Hemoglobin A1c 6.1
Lifestyle changes modification
Dyslipidemia:
Lipid Panel noted hyperlipidemia
Atorvastatin 80 mg QPM
Anxiety:
Continue benzodiazepines as needed
Anemia
-monitor Hgb slow trend down noted
-no transfusion necessary at this time
-cont to monitor
History of aortic aneurysm dissection s/p repair in the past when she was in her 20s
History of intracranial bleed a couple years ago status post right frontotemporal craniotomy.
DVT prophylaxis:
Therapeutic Lovenox as above
CODE STATUS:
Full code
Patient requested transfer to [facility] for higher level of care and continuity with her professional development instructor Dr Camarena who knows her best. Discussed with [facility] and Dr Camarena who accepted patient into his care at [facility].
discussed with patient and patient's [facility]
I spent a total of 50 minutes with the patient or on the floor. More than 50% of this time involved counseling and coordination of care.
Anticipated Discharge: Within 24 hours
Subjective/Interval History
-
Date of Service: February 22, 2025
Seen and examined at bedside, no acute distress, appears comfortable at this time. Noted chest pain overnight since resolved. RLE swelling/pain improved, tolerating XI wrap compression.
Objective Data
-
Labs:
Laboratory Results
02/22/25
06:37
WBC 8.5
Hgb 8.6 L
Hct 25.4 L
Plt Count 253
Sodium 137
Potassium 4.1
Chloride 108 H
Carbon Dioxide 23
BUN 15
Creatinine 0.7
Glucose 119 H
Calcium 8.8
Vital Signs:
Vital Signs
Temp Pulse Resp BP Pulse Ox
98.3 F 77 16 132/75 96
02/22/25 07:26 02/22/25 08:23 02/22/25 07:26 02/22/25 08:23 02/22/25 07:26
I&O
02/21/25 02/22/25 02/23/25
06:59 06:59 06:59
Intake Total 1440 / 1440 1140 / 1140
Balance 1440 / 1440 1140 / 1140
--- NOTE | 2025-02-22 09:29 | W.PN.GS2 ---
Addendum entered and electronically signed by iVk House MD 02/22/25 10:12:
Patient seen and examined in follow-up with [facility] [employer].
Patient states that she had a poor night due to persistent pain in her right lower extremity.
She advises that all of her previous care has been at [facility] and she wishes for transfer while being appreciative of the care that she has received so far at [facility].
AFVSS
Hemoglobin essentially stable at 8.6 from 8.9
On examination right lower extremity calf hematoma appears stable. Tense, tenderness on palpation. Ecchymosis of the surrounding skin. Motor and sensory intact in the right lower extremity.
Assessment/plan: Right lower extremity calf hematoma in the setting of therapeutic anticoagulation and ischemic CVA
No emergent/urgent need for surgical hematoma evacuation/immediate limb threat but it would likely alleviate her symptomatology
Therapeutic anticoagulation would have to be stopped for any surgical intervention
Patient advises that she would like to be transferred to [facility] to be under the care of her previous physicians to help with these further decisions being made.
Will sign off given anticipated plan for transfer but available for further assistance should there be any acute changes
Original Note:
Today's Communication / Plan
-
No surgery at this time
Assessment / Plan
-
Assessment: 54-year-old female who presents with a traumatic hematoma to her right lower extremity in the setting of an ischemic CVA currently on therapeutic anticoagulation (Lovenox 90 mg twice daily subcu).
AFVSS
Hemoglobin slowly drifting but relatively stable and currently 8.6 from 8[address] angio right lower extremity completed 02/20/2025. Calf hematoma has enlarged in size compared to prior MRI imaging but there was no active arterial extravasation of contrast.
Plan:
Continue medical/expectant management of hematoma given no signs of extremity compartment syndrome, no extravasation on CT angio, no overlying skin necrosis nor clear signs of infectious component
Patient confirms strong desire for nonoperative management which would be preferential from a risk-benefit as well at this point, would like to be transferred to [facility] and has been in contact with her doctor there
Patient remains on therapeutic anticoagulation in setting of recent ischemic CVA
Continue to follow H&H
Okay to ambulate but elevate extremity while resting
Will follow
Subjective Data
-
Date of Service: February 22, 2025
Patient seen and examined at bedside with Dr. House. Pain continues to her RLE. Denies dizziness, lightheadedness. Would like to be transferred to [facility] where her care has been previously.
Objective Data
-
Intake and Output
02/21/25 02/22/25 02/23/25
06:59 06:59 06:59
Intake Total 1440 / 1440 1140 / 1140
Balance 1440 / 1440 1140 / 1140
Intake:
Oral fluids 1440 / 1440 1140 / 1140
Other:
Number of approximated MODERATE 1 2
amounts of urine
Number of approximated LARGE 1
amounts of urine
Vital Signs
Temp Pulse Resp BP Pulse Ox
98.3 F 77 16 132/75 96
02/22/25 07:26 02/22/25 08:23 02/22/25 07:26 02/22/25 08:23 02/22/25 07:26
Lab Results
02/22/25 06:37
02/22/25 06:37
Calcium 8.8 mg/dl (8.4-10.2) 02/22/25 06:37
Phosphorus 3.5 mg/dl (2.5-4.5) 02/22/25 06:37
Magnesium 2.1 mg/dl (1.6-2.3) 02/22/25 06:37
Total Bilirubin 0.8 mg/dl (0.2-1.3) 02/15/25 21:46
AST 31 U/L (14-36) 02/15/25 21:46
ALT 35 U/L (0-35) 02/15/25 21:46
Alkaline Phosphatase 75 U/L (38-126) 02/15/25 21:46
Total Protein 7.3 g/dl (6.3-8.2) 02/15/25 21:46
Albumin 4.7 g/dl (3.5-5.0) 02/15/25 21:46
Physical Exam
-
NAD AAO x 3 resting in hospital bed
R LE: Calf tightness on palpation and tenderness. Visible ecchymosis. Extremity warm with good capillary refill all the way through to the foot. No paresthesias and sensory intact. Motor intact as well. Palpable dorsalis pedis pulse.
[2025-02-22] MEDS: NEURONTIN 100 MG PO (12:07)
--- NOTE | 2025-02-22 13:07 | CON.ID ---
Consultation
-
Date/Time Consultation Requested: February 22, 2025 1108
Date/Time Consultation Performed: February 22, 2025 1310
Requesting Provider: Dr. Antony Devlin
Performing Provider: Dr. Violet Roy
Reason for Consultation: Bacteremia
Chief Complaint / Past History
Chief Complaint
Right vision loss, weakness
History of Present Illness
54-year-old female with history of atrial fibrillation, mechanical aortic valve replacement, hemorrhagic CVA status post craniotomy and therefore to maintain INR between 2-2.5 who presented to the hospital February 15 due to sudden onset of right vision
loss, weakness, and fall. MRI of the brain shows acute/subacute infarct left temporal lobe extending to the adjacent anterior occipital lobe; also noted large pituitary macroadenoma. Admission INR 1.1. CVA concerning for embolic source. Due to
history of brain bleed, patient has been very cautious/noncompliant with her Coumadin intake. TTE: no cardiac source of embolus. While in the hospital patient developed worsening right calf pain and swelling. MRI of the right leg showed a large
hematoma currently managed conservatively. CT of right lower extremity showed right calf hematoma 18.7 cm in size, no active extravasation, small nonocclusive central filling defect within the tibioperoneal trunk consistent with embolus. Patient
states she developed phlebitis over the peripheral IV site placed by EMS which was not removed when she came to the hospital. She alerted the staff on 02/20, pIV removed. Hospitalist obtained 2 sets of blood cultures on 02/20. 1 of 4 bottles
positive for gram-negative madyson from anaerobic bottle. She is currently on Zosyn day 3. No fevers. White count normal. She reports her vision is better. Weakness is better. No fevers or chills. No cough. No diarrhea. No urine symptoms.
Chief complaint is the right calf hematoma pain. She is awaiting transfer to [facility].
Past History
Additional Past Medical History:
Hypertension
Atrial fibrillation
hx bicuspid AV with aortic aneurysm dissection s/p mechanical aortic valve replacement with subsequent revision AVR, root repair (2020)
Pituitary macroadenoma
History of hemorrhagic CVA s/p craniotomy
Aortic aneurysm repair
Allergy History:
ciprofloxacin (From Cipro) Allergy (Verified 02/15/25 21:46)
Unknown
ciprofloxacin HCl (From Cipro) Allergy (Verified 02/15/25 21:46)
Unknown
Quinolones Allergy (Verified 02/15/25 21:46)
Unknown
methylprednisolone sodium succinate (From Solu-Medrol) Adverse Reaction (Verified 02/15/25 21:46)
HTN, Rapid HR
Medications Reviewed: Yes
Current Antibiotics:
Zosyn d3
Social History
Tobacco: Non-Smoker
Alcohol: None
Drug: None
Personal:
Living: With Family
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
Family History
Family History: Not Pertinent
Review of Systems
Review of Systems
General: Change in Appetite; Negative Fever or Chills
HEENT: Negative Stiff Neck, Sinus Problems or Headache
Cardiovascular: Negative Chest Pain or Dyspnea
Respiratory: Negative Dyspnea or Cough
Gasteroenterology: Negative Nausea, Vomiting or Diarrhea
Genital / Urological: Negative Dysuria
Endocrine: Weakness
Skin / Hair / Nails: Negative Rash
Neurological: Negative Dizziness
All systems: All other systems were reviewed and were negative
Vital Signs
Temp Pulse Resp BP Pulse Ox
98.3 F 77 16 132/75 96
02/22/25 07:26 02/22/25 08:23 02/22/25 07:26 02/22/25 08:23 02/22/25 09:53
Physical Exam
Physical Exam
Constitutional: No Acute Distress and Comfortable
Head: Other (No frontal or lateral sinus tenderness)
Eyes: No Conjunctival Hemorrhage and Sclera Anicteric
Cardiovascular: Regular Rate, S1/S2 and Murmur (mechanical valve sound)
Pulmonary: Clear
Gastrointestinal: Soft, Non Tender, Non Distended and Normal Bowel Sounds
Genito-Urinary: Negative Suprapubic Tenderness or CVA Tenderness
Extremities: Edema (RLE, calf with erum-wrap)
Musculoskeletal: Negative Spinal Tenderness
Skin: Other (Large ecchymosis posterior right thigh)
Wound: Other (Right antecubital fossa over previous pIV site- 3mm firm induration with central scab, no surrounding erythema)
Neurological: AO x 3
Lab / Diagnostic Study Results
02/22/25 06:37
02/22/25 06:37
Abs Immat Gran (auto) 0.1 10^3/uL (0-0.05) H 02/20/25 21:40
Absolute Neuts (auto) 6.8 10^3/uL (1.4-6.5) H 02/20/25 21:40
Absolute Lymphs (auto) 1.8 10^3/uL (1.2-3.4) 02/20/25 21:40
Absolute Monos (auto) 1.5 10^3/uL (0.1-0.6) H 02/20/25 21:40
Absolute Basos (auto) 0.1 10^3/uL (0-0.2) 02/20/25 21:40
Immature Gran % 0.6 % (0-0.5) H 02/20/25 21:40
Neutrophils % 65.1 % (42.2-75.2) 02/20/25 21:40
Lymphocytes % 17.1 % (20.5-51.1) L 02/20/25 21:40
Monocytes % 14.6 % (1.7-9.3) H 02/20/25 21:40
Eosinophils % 1.8 % (0-6) 02/20/25 21:40
Basophils % 0.8 % (0-2) 02/20/25 21:40
PT 15.5 Sec (11.4-14.6) H 02/18/25 02:18
INR 1.20 02/18/25 02:18
Procalcitonin 0.05 ng/ml (0.0-0.25) 02/22/25 06:37
Microbiology Results
Micro:
02/20/25 21:40 Blood Culture - Preliminary
Blood/Venous Positive culture in progress
Gram Stain - Preliminary
02/20/25 22:15 Blood Culture - Preliminary
Blood/Venous No Growth in 24 hours- Final report to follow
02/16/25 Brain MRI: Focal area of acute to subacute infarction involving the posteromedial left temporal lobe and extending to the adjacent anterior occipital lobe. No evidence for associated hemorrhage or mass effect.
Status post right frontotemporal craniotomy. Evidence for previous infarcts and encephalomalacia involving the right frontal and posterolateral parietal region. Rim of hemosiderin in these areas of encephalomalacia, compatible with previous
hemorrhage. Large sellar and suprasellar mass which is likely a macroadenoma.
02/17/25 MRI RLE: Complex collection centered within the medial head of the gastrocnemius muscle measuring 14.3 x 6.5 x 5.0 cm in size. Heterogeneous internal contents showing predominantly hyperintense to isointense T2 signal, isointense to
hyperintense T1 signal, and a peripheral rim of low signal intensity. Small amount of postcontrast enhancement within the collection. Imaging characteristics are most in keeping with an intramuscular hematoma.
02/20/25 CT RLE: Medial right calf hematoma measuring up to 18.7 cm in diameter as above. No active arterial extravasation of contrast is identified.
2. Small nonocclusive central filling defect within the tibioperoneal trunk as above, most consistent with embolus.
Assessment / Plan
# Anaerobic GNR bacteremia - suspect contaminant
- 02/20/25: 2 sets of blood cx's drawn 30 min apart. 1 of 4 bottles + GNR (from anaerobic bottle)
-Repeat blood cx's pending
- Due to presence of mechanical AV, can err on side of caution and treat.
Replace Zosyn (d3) with metronidazole 500mg po tid. Follow cx data.
# R antecubital phlebitis from pIV, removed
- improving
- GNR bacteremia unlikely from phlebitis. GPC most common organism in setting of phlebitis.
# Acute CVA
# Afib on Coumadin
# Mechanical AV on Coumadin
# Small Nonocclusive embolus to RLE TP trunk
- Subtherapeutic INR 1.1 on admission
- TTE no cardiac source of embolus
-Consider FAUSTO
# Large right calf hematoma due to fall.
# Hx of hemorhagic CVA s/p R craniotomy
--- NOTE | 2025-02-22 13:40 | CM ---
CM notified of plan for transfer to [facility] pending bed availability. stamp clerk sent pt's facesheet to [facility] to start the process.
CM awaiting available bed for transfer to [facility].
[2025-02-22 15:01] VITALS: BP 139/77
[2025-02-22] MEDS: LIPITOR PO (17:18)
--- NOTE | 2025-02-22 20:14 | W.DCSUMMARY ---
Discharge Summary
Discharge Data
Date of Admission: 02/16/25
Date of Discharge: 02/22/25
-
Pending Results: Yes
Additional Pending Results:
official culture results
Discharge Plan
-
Patient Disposition: [facility]
Condition: Fair
Discharge Orders:
Discharge Patient (As Directed); Ordered 02/22/25
Ordered By: Antony Devlin
Discharge Date and Time
Discharge Date/Time: 02/22/25 20:01
Print Language: [place] CITIZ[place]
== END 2025-02-22 20:01 | disposition short-term general hospital (02) | DRG 66 ==
LOC: 3 WEST ACU 01:08
PROVIDERS: Emergency Medicine; Hospitalist; Physician Assistant Medical; ADMITTING PHYSICIAN Internal Medicine; ATTENDING PHYSICIAN Internal Medicine; CONSULT PHYSICIAN Internal Medicine Endocrinology, Diabetes & Metabolism; CONSULT PHYSICIAN Internal Medicine Infectious Disease; CONSULT PHYSICIAN Psychiatry & Neurology Clinical Neurophysiology; CONSULT PHYSICIAN Specialist; CONSULT PHYSICIAN Surgery; EMERGENCY PHYSICIAN Emergency Medicine; FAMILY PHYSICIAN Family Medicine
DX: I63.532 Cerebral infarction due to unspecified occlusion or stenosis of left posterior cerebral artery (principal); G93.89 Other specified disorders of brain; S80.11XA Contusion of right lower leg, initial encounter; W19.XXXA Unspecified fall, initial encounter; I11.9 Hypertensive heart disease without heart failure; E66.9 Obesity, unspecified; M66.0 Rupture of popliteal cyst; F41.9 Anxiety disorder, unspecified; Z68.32 Body mass index [BMI] 32.0-32.9, adult; Z91.148 Patient's other noncompliance with medication regimen for other reason; Z79.01 Long term (current) use of anticoagulants; I48.0 Paroxysmal atrial fibrillation
CPT/HCPCS: 0042T; 70450; 70496; 70498; 70551; 70553; 73706; 73720; 80048; 80053; 80061; 82024; 82077; 82533; 82607; 82670; 82728; 82746; 82962; 83001; 83002; 83003; 83036; 83540; 83550; 83735; 84100; 84145; 84146; 84305; 84439; 84443; 84484; 85014; 85018; 85025; 85027; 85610; 85730; 86850; 86870; 86900; 86901; 86905; 87040; 87077; 87186; 87205; 92523; 92610; 93005; 93306; 93971; 97116; 97129; 97163; 97167; 97535; 99291; 99292; A9575; Q9967

== ENCOUNTER 2025-07-25 22:23 | Inpatient (IN) | payer OTHER, SELFPAY ==
[2025-07-25] VITALS (14 sets, daily range): BP systolic 120–149; BP diastolic 75–97; BMI 28.1
[2025-07-25] MEDS: DILAUDID 0.5 MG IV (18:34)
--- NOTE | 2025-07-25 18:36 | ED.GENMED ---
History of Present Illness
<Jacky Mane PA-C - Last Filed: 07/25/25 21:20>
General
Chief Complaint: Headache
Source: patient
Time Seen by Provider: 07/25/25 18:21
History of Present Illness
History of Present Illness:
55-year-old female with past medical history of previous hemorrhagic CVA, atrial fibrillation, hypertension, hyperlipidemia, aortic dissection, status post transsphenoidal pituitary tumor removal from this last week presenting to the emergency
department for evaluation of posterior head/neck pain that has been constant since the procedure, today felt 'lethargic' prompting her to contact EMS to bring her to the ER for further evaluation. Patient states she was concerned because she was
home alone at the time and that if anything were to happen to her she would not be able to contact anybody for help. Patient did get blood work done earlier today as part of her postsurgery testing without any complication. She did take a dose of
her oxycodone overnight but nothing since that time. She denies any focal weakness or numbness, visual disturbances, photo or phonophobia, nausea or vomiting. She also denies any fevers or infectious symptoms. Currently on Lovenox and Coumadin
but she reports her INR has been subtherapeutic. Patient's surgeon at [place] was Dr. Sowmya Merchant.
Past History
<Jacky Mane PA-C - Last Filed: 07/25/25 21:20>
Past History
ED Past Medical History: Arrthythmia (Atrial fibrillation), CVA (Hemorrhagic), GERD, HTN, Valvular disease (Congenital bicuspid aortic valve with subsequent aortic dissection/ AVR with [facility]) and Other (Aortic aneurysm/dissection with repair,
hemorrhagic CVA)
ED Past Surgical History: Cardiac (Aortic valve replacement mechanical, aortic root repair), and Other ([facility] aortic valve replacement and an ascending aortic graft replacement [address] [place] [address])
Social History
Tobacco: Non-smoker
Alcohol: Occasional
Drug: None
Personal:
Living: with family
Family History
Family History: Negative Diabetes, Hypertension, Early CAD, Asthma or Cancer
Review of Systems
<Jacky Mane PA-C - Last Filed: 07/25/25 21:20>
Review of Systems
All Other Systems: ROS reviewed and negative except as documented in HPI and ROS
Phy Exam
<Jacky Mane PA-C - Last Filed: 07/25/25 21:20>
Physical Exam
Physical Exam:
GENERAL: Alert , in no apparent distress but does appear uncomfortable, large dressing in place over the upper lip with dried blood from the nasal passage
HEAD: Normocephalic atraumatic
EYE: conjunctiva clear
NECK: Supple
ENT: o/p clr, mmm.
CARDIAC: Regular rate and rhythm
LUNGS: Clear breath sounds bilaterally, no acute respiratory distress, no wheezes/rales/rhonchi
NEUROLOGICAL: Alert and oriented
SKIN: Warm and dry, skin intact.
MUSCULOSKELETAL: well perfused.
PSYCH: Normal and appropriate interaction.
Scores
<Jacky Mane PA-C - Last Filed: 07/25/25 21:20>
Heart Failure Risk
Heart Failure Risk Score: Not Applicable
Heart Score for Chest Pain Patients
STEMI patient?: Not applicable
Withdrawal Assessment of Alcohol
Withdrawal Assessment Completed?: Not applicable
Course
<Jacky Mane PA-C - Last Filed: 07/25/25 21:20>
Orders/Labs/Results
Orders:
Orders
07/25/25 18:29
CT Head W/o Iv Contrast Urgent
Comment:
Reason For Exam: recent pituitary tumor removal, worsening headache
HYDROmorphone [Dilaudid] 0.5 mg IV NOW STA
07/25/25 18:35
Basic Metabolic Panel Urgent
Complete Blood Count/With Diff Urgent
PTT Urgent
Prothrombin Time Urgent
Serum Osmolality Urgent
Comment: ADD ON
07/25/25 19:17
Add On- LAB Urgent
Tests Added?: serum osmo
07/25/25 19:22
Osmolality, Random Urine Urgent
Date Specimen was Collected: 07/25/25
Time Specimen was Collected: 19:20
Urinalysis Reflex To Culture Urgent
Date Specimen was Collected: 07/25/25
Time Specimen was Collected: 19:20
Urine Microscopic Reflex Cult Urgent
Urine Sodium Urgent
Date Specimen was Collected: 07/25/25
Time Specimen was Collected: 19:20
Urine Culture Urgent
MINOR Source: U
Specimen Description:
Date Specimen was Collected: 07/25/25
Time Specimen was Collected: 19:20
07/25/25 20:00
3% Sodium Chloride 250 ml [Sodium Chloride 3%] 250 ml IV ONCE
07/25/25 20:55
HYDROmorphone [Dilaudid] 1 mg IV NOW STA
07/25/25 21:11
Add On- LAB Urgent
Tests Added?: TSH w Reflex Free T4
Abnormal Lab Results
07/25/25 07/25/25
18:35 19:22
RBC 3.61 L 10^6/uL
(4.20-5.40)
Hgb 11.6 L g/dL
(12.0-16.0)
Hct 33.2 L %
(37.0-47.0)
MCH 32.1 H pg
(27.0-31.0)
MPV 11.9 H fL
(7.4-10.4)
Immature Gran % 0.6 H %
(0-0.5)
APTT 39.5 H Sec
(23.4-35.0)
Sodium 118 L* mmol/L
(135-145)
Chloride 86 L mmol/L
(98-107)
Glucose 106 H mg/dl
(70-99)
Serum Osmolality 253 L mOsm/kg
(275-300)
Leukocyte Esterase Rfl 1+ A
(Negative)
Urine Bacteria (Reflex) Moderate A
(Negative)
Urine Sodium 211 H mmol/L
(30-90)
07/25/25 18:35
07/25/25 18:35
Vital Signs
Initial and Last Documented VS:
Initial Vital Signs
Temp Pulse Resp Pulse Ox
98.2 F 65 12 96
07/25/25 17:47 07/25/25 17:47 07/25/25 17:47 07/25/25 17:47
Last Documented Vital Signs
Temp Pulse Resp BP Pulse Ox
98.2 F 61 17 130/83 98
07/25/25 17:47 07/25/25 19:15 07/25/25 19:15 07/25/25 19:00 07/25/25 19:15
Abdoullt;Markell Tilley, - Last Filed: 07/25/25 19:29>
Orders/Labs/Results
Orders:
Orders
07/25/25 18:29
CT Head W/o Iv Contrast Urgent
Comment:
Reason For Exam: recent pituitary tumor removal, worsening headache
HYDROmorphone [Dilaudid] 0.5 mg IV NOW STA
07/25/25 18:35
Basic Metabolic Panel Urgent
Complete Blood Count/With Diff Urgent
PTT Urgent
Prothrombin Time Urgent
Serum Osmolality Urgent
Comment: ADD ON
07/25/25 19:17
Add On- LAB Urgent
Tests Added?: serum osmo
07/25/25 19:22
Osmolality, Random Urine Urgent
Date Specimen was Collected: 07/25/25
Time Specimen was Collected: 19:20
Urinalysis Reflex To Culture Urgent
Date Specimen was Collected: 07/25/25
Time Specimen was Collected: 19:20
Urine Microscopic Reflex Cult Urgent
Urine Sodium Urgent
Date Specimen was Collected: 07/25/25
Time Specimen was Collected: 19:20
Urine Culture Urgent
MINOR Source: U
Specimen Description:
Date Specimen was Collected: 07/25/25
Time Specimen was Collected: 19:20
07/25/25 20:00
3% Sodium Chloride 250 ml [Sodium Chloride 3%] 250 ml IV ONCE
07/25/25 20:55
HYDROmorphone [Dilaudid] 1 mg IV NOW STA
07/25/25 21:11
Add On- LAB Urgent
Tests Added?: TSH w Reflex Free T4
Abnormal Lab Results
07/25/25 07/25/25
18:35 19:22
RBC 3.61 L 10^6/uL
(4.20-5.40)
Hgb 11.6 L g/dL
(12.0-16.0)
Hct 33.2 L %
(37.0-47.0)
MCH 32.1 H pg
(27.0-31.0)
MPV 11.9 H fL
(7.4-10.4)
Immature Gran % 0.6 H %
(0-0.5)
APTT 39.5 H Sec
(23.4-35.0)
Sodium 118 L* mmol/L
(135-145)
Chloride 86 L mmol/L
(98-107)
Glucose 106 H mg/dl
(70-99)
Serum Osmolality 253 L mOsm/kg
(275-300)
Leukocyte Esterase Rfl 1+ A
(Negative)
Urine Bacteria (Reflex) Moderate A
(Negative)
Urine Sodium 211 H mmol/L
(30-90)
07/25/25 18:35
07/25/25 18:35
Vital Signs
Initial and Last Documented VS:
Initial Vital Signs
Temp Pulse Resp Pulse Ox
98.2 F 65 12 96
07/25/25 17:47 07/25/25 17:47 07/25/25 17:47 07/25/25 17:47
Last Documented Vital Signs
Temp Pulse Resp BP Pulse Ox
98.2 F 61 17 130/83 98
07/25/25 17:47 07/25/25 19:15 07/25/25 19:15 07/25/25 19:00 07/25/25 19:15
<Jacky Mane PA-C - Last Filed: 07/25/25 21:20>
MDM/Problems Addressed
Differential Diagnosis Includes:
Post surgical bleeding
Vertebral artery dissection
Muscular neck pain
Tension headache
Migraine headache
MDM/Problems Addressed:
55-year-old female presenting to the ER for evaluation of head and neck pain since she had surgery on 8 pituitary tumor. She reports that in contact with her surgical team they reported to her that her pain is normal to experience due to
positioning during the procedure but today patient became concerned because she felt lethargic at home. Patient without any focal neurologic deficits. She does have extensive arterial history including dissection and hemorrhagic CVA. Will obtain
CT of the head in addition to CTA of the head and neck. Dilaudid ordered for pain control. Disposition pending.
Chronic conditions affecting care: Neurological disorder
Acute Exacerbation and/or Progression of Chronic Illness: Neurological disorder
<Jacky Mane PA-C - Last Filed: 07/25/25 21:20>
*Radiology
Radiology exam reviewed: radiology read reviewed
*Pulse Oximetry
SaO2: 96
Oxygen Mode of Delivery: Room air
Patient hypoxic: no
*Critical Care Note
Total Time (30-74mins, 75-104mins- exclusive of procedures): 35
comment:
Critical care statement: A total of 35 minutes of critical care time was provided for this patient. This includes management of unstable vital signs, evaluation of the patient at bedside, reviewing the patient's pertinent medical records, discussion
with consultants, review of old EKGs and review of pertinent medical records. This time with separate from time utilized to perform the aforementioned documented procedures
<Jacky Mane PA-C - Last Filed: 07/25/25 21:20>
Patient Management
Discussion with other providers: Hospitalist and Record Changer Tester
Escalation/DeEscalation of care consider admission/obs:
Patient sodium came back at 118. 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 I discussed the case with Dr. Guthrie, emergency response coordinator neurosurgeon, who states this is a common complication from the procedure and
that patient can be managed at our facility assuming we are able to care for this complication. I notified our nephrology team who is aware and agrees with plan to start 3% hypertonic normal saline at a rate of 30 mL/h. Goal for sodium to be 120 2
in the morning. Patient CT scan ultimately came back without any acute intracranial pathology. Hospitalist team was notified and accepts for continued evaluation and treatment.
ED Attending Note
<Jacky Mane PA-C - Last Filed: 07/25/25 21:20>
-
Portions of this chart may have been created with voice recognition software.� Occasional wrong word or��sound alike� substitutions may have occurred due to the inherent limitations of voice recognition software.
<Markell Tilley DO - Last Filed: 07/25/25 19:29>
ED Attending Note
Patient seen and examined by attending physician: Yes
I performed the substantive portion of visit, reviewed & personally made and approve the management plan that is documented in note by myself or OEBD.: Yes
ED Attending Note:
I agree with Pawel's note
55-year-old female presents to the emergency complaining of headache and neck pain. Patient had transsphenoidal pituitary surgery 1 week ago at [place]. While in the hospital patient was receiving analgesia for her generalized headache and neck pain.
She was discharged on oral pain meds but has been 'rationing them' presenting today for further management. Today she was home alone and was feeling quite concerned about the level of pain. She spoke to her surgeon last night who encouraged her
to take the medicine that was prescribed and rest. This morning when her pain continued to be more than what she expected she decided to reach out again. They told her to come for further evaluation. Patient denies any visual field changes. She
denies any focal weakness numbness or tingling.
General: Awake, Alert, Oriented X3. No acute distress,
Vitals: unremarkable
Head: Normocephalic
Eyes: Pupils equal, EOMI
Nose: Postoperative dressing in place
Throat: Airway intact, no exudates
Neck: Trachea midline
Neuro: No focal deficit
Skin: Warm, dry, no rash
Extremities: pulses equal b/l, no edema
Likely postoperative pain but we will obtain imaging to exclude any postoperative bleeding or complication
Labs performed, sodium level quite low at 118. Hypertonic saline will be initiated. Pawel will discuss the patient's presentation with the neurosurgery team at [facility].
Discharge Plan
Departure
Patient Disposition: Admit
Date of Disposition: 07/25/25
Time of Disposition: 20:48
Presentation/result/management discussed w/ accepting MD/DO: Hospitalist
Discharge Problem:
Acute hyponatremia
Prescriptions:
No Action
ascorbic acid (vitamin C) [Vitamin C] 1,000 MG tablet
1,000 mg PO DAILY
milk thistle 150 MG capsule
1 cap PO DAILY
Zinc
30 mg PO DAILY
amlodipine 5 mg tablet
5 mg PO DAILY
alprazolam 0.25 mg tablet
0.25 mg PO Q8HPRN PRN (Reason: anxiety)
lisinopril 10 mg tablet
10 mg PO DAILY
warfarin 5 mg tablet
5 - 10 mg PO QPM
gabapentin 100 mg capsule
300 mg PO TID
metoprolol succinate 25 mg tablet extended release 24 hr
25 mg PO DAILY
propranolol 20 mg tablet
20 mg PO BIDPRN PRN (Reason: palpitations)
lisinopril 2.5 mg tablet
2.5 mg PO DAILY
cholecalciferol (vitamin D3) [Vitamin D3] 125 mcg (5,000 unit) Tablet
5,000 unit PO DAILY
acetylcysteine [NAC] 600 mg Capsule
600 mg PO DAILY
Referrals:
Rox Botello MD [Family Provider, Family Practice]
Interventions
Interventions:
*Risk Screen - Suicide Last Done: 07/25/25 17:49
*General Assessment Last Done: 07/25/25 18:10
*Neglect/Abuse Screening Last Done: 07/25/25 17:49
*ED- Fall Risk Assessment Last Done: 07/25/25 18:10
ED- Neurological Assessment Last Done: 07/25/25 18:10
Discharge Date and Time
Print Language: YEMENI
[2025-07-25 18:50] LABS: Hematocrit 33.2 % (37.0-47.0); Hemoglobin 11.6 g/dL (12.0-16.0); Mean Corp Hgb Conc. 34.9 g/dL (33.0-37.0); Mean Corpuscular Volume 92.0 fL (81.0-99.0); Nucleated Red Blood Cells % 0 %; Platelet Count 270 10^3/uL (130-400); Red Cell Dist. Width 13.0 % (11.5-14.5)
[2025-07-25 19:00] LABS: INR 1.06; PT 14.3 Sec (11.4-14.6)
[2025-07-25 19:01] LABS: APTT 39.5 Sec (23.4-35.0)
[2025-07-25 19:14] LABS: Blood Urea Nitrogen 14 mg/dl (7-17); Calcium 9.1 mg/dl (8.4-10.2); Carbon Dioxide 25 mmol/L (22-30); Chloride 86 mmol/L (98-107); Estimated Creatinine Clearance 122 ml/min; Glucose 106 mg/dl (70-99); Potassium 4.1 mmol/L (3.5-5.1); Sodium 118 mmol/L (135-145); eGFR > 60.00
[2025-07-25 19:44] LABS: Urine Character Cloudy (Clear)
[2025-07-25] MEDS: SODIUM CHLORIDE 3% 250 IV (19:53)
[2025-07-25 19:54] LABS: Urine Squamous Cell 0-2 /LPF (Few)
[2025-07-25 19:55] LABS: Urine Red Blood Cell 0-2 /HPF (0-2)
[2025-07-25] MEDS: DILAUDID 1 MG IV (21:04)
--- NOTE | 2025-07-25 22:09 | HPS.HSE ---
Family Physician
-
Family Physician: Rox Botello MD
Chief Complaint
-
Headache, Fatigue
History of Present Illness
Patient is a 55y F with PMH significant for mechanical AVR, aortic dissection, hemorrhagic CVA and recent trans-sphenoidal resection of pituitary lesion who presents to ED complaining of headache and fatigue. Patient underwent pituitary surgery
at [place] on , 07/18/25. She was discharged to home on Saturday 07/21. Patient states that she has been trying to ration her pain medications as she was given a very small supply. She has noted increased headache and posterior neck pain since
her discharge. Patient has been in touch with her surgeon who has reassured her that her symptoms are typical and she should take her pain medications as prescribed. Today patient went to [facility] with her mother. While driving home she was very
fatigued and falling asleep behind the wheel.
Once home she 'passed out' and slept for several hours. Upon waking she continued to feel cloudy / fatigued and she called 911.
Patient was brought to the ED for further evaluation.
In the ED, patient is noted to have Na = 118, which is new from prior / normal values.
Patient denies any recent symptoms of polyuria, polydipsia, etc. She has been maintained on fluid restriction since her surgery and states that she has been compliant.
Patient is very aware of her BP control given prior h/o hemorrhagic CVA. She states that her BP has been high at home and she has taken 2 doses of 'as needed' HCTZ in the past few days.
In the ED patient denies any nausea, dizziness, vision changes, numbness / tingling, etc.
Medical History
Past Medical History
Past Medical History: Reports Other
Additional Past Medical History:
Hypertension
Thoracic Aortic Dissection
Hemorrhagic CVA
Pituitary Tumor
Paroxysmal A-Fib
Past Surgical History: Reports Other
Additional Past Surgical History:
Trans-sphenoidal Pituitary Tumor Resection (07/18/25)
R Frontotemporal Craniotomy
Mechanical AVR (x 2)
Appendectomy
Social History
Tobacco: Non-smoker
Alcohol: None
Drug: None
Personal:
Living: With Family
Family History
Family History: Not pertinent
Allergies / Home Medications
Allergies reflects when Allergies were last updated in [facility].
Home Medications with original date entered in [facility]
Allergy/Medication List:
Allergies
Allergy/AdvReac Type Severity Reaction Status Date / Time
ciprofloxacin (From Cipro) Allergy Unknown Verified 07/25/25 18:38
ciprofloxacin HCl (From Allergy Unknown Verified 07/25/25 18:38
Cipro)
methylprednisolone sodium Allergy HTN, Rapid Verified 07/25/25 18:38
succinate (From Solu-Medrol) HR
Quinolones Allergy Unknown Verified 07/25/25 18:38
Home Medications
alprazolam 0.25 mg tablet 0.25 mg PO Q8HPRN PRN anxiety 02/21/25
amlodipine 5 mg tablet 5 mg PO DAILY Blood Pressure 02/21/25
lisinopril 10 mg tablet 10 mg PO DAILY Blood Pressure 02/21/25
lisinopril 2.5 mg tablet 2.5 mg PO DAILY PRN Blood Pressure 02/21/25
warfarin 5 mg tablet 5 - 10 mg PO QPM dose per INR 02/21/25
amoxicillin 875 mg-potassium clavulanate 125 mg tablet 1 tab PO BID 07/25/25
enoxaparin 80 mg/0.8 mL subcutaneous syringe (Lovenox) 80 mg SC Q12H 07/25/25
hydrochlorothiazide 12.5 mg tablet 12.5 mg PO DAILY PRN High BP 07/25/25
oxycodone 5 mg tablet 5 mg PO Q4H PRN Pain 07/25/25
Review of Systems
-
History Source: Patient
A 12 point ROS was completed and negative except as noted: Yes
Constitutional: Reports Fatigue; Denies Fever or Chills
EENT: Denies Sore Throat
Respiratory: Denies Cough or Trouble Breathing
Cardiac: Denies Chest Pain or Palpitations
Abdomen/GI: Denies Abdominal Pain, Nausea, Vomiting or Diarrhea
: Denies Dysuria or Frequency
Musculoskeletal: Denies Edema
Neurological: Reports Headache; Denies Dizzy, Weakness or Numbness
Endocrine: Denies Polyuria or Polydipsia
Psych: Denies Depression or Anxiety
Physical Exam
Vital Signs
Vital Signs
Temp Pulse Resp BP Pulse Ox
98.2 F 61 17 130/83 98
07/25/25 17:47 07/25/25 19:15 07/25/25 19:15 07/25/25 19:00 07/25/25 19:15
Physical Exam
General: Other (55y F in no acute distress.)
HEENT: Moist mucous membranes and Other (Nasal packing in place bilateral nostrils with old / dried blood on dressings. No active bleeding.)
Respiratory: Clear; No Wheezes, Rales or Rhonchi
Cardiac: S1/S2 (Mechanical S2.) and Regular Rhythm; No Murmur
GI: Soft, Non Tender, Non Distended and Normal Bowel Sounds
Musculoskeletal: No Clubbing, No Cyanosis and No Edema
Neuro: AO x 3 and Nonfocal/grossly intact
Laboratory Results
-
07/25/25 18:35
07/25/25 18:35
Laboratory Results
PT 14.3 Sec (11.4-14.6) 07/25/25 18:35
INR 1.06 07/25/25 18:35
APTT 39.5 Sec (23.4-35.0) H 07/25/25 18:35
Impression/Plan
-
A/P: Patient is a 55y F with PMH significant for hypertension, prior hemorrhagic CVA, mechanical AVR and recent pituitary surgery who presents to ED c/o fatigue / somnolence.
Symptomatic Hyponatremia
- Admit for further evaluation and treatment.
- Likely secondary to recent neurosurgery.
- Urine studies with elevated UOsm and Thaddeus (but took two recent doses of HCTZ as well).
- Hold further HCTZ. Continue fluid restriction.
- Hypertonic saline per Nephrology recs - follow serial Na levels for slow improvement.
- No significant polyuria to suspect LAST TRIMMER-D.
- Nephrology consulted for further recommendations.
- Follow for any clinical changes.
s/p Trans-sphenoidal Resection of Pituitary Tumor 07/18/25
- CT head with what appears to be expected post-op changes.
- Nasal packing to remain in place x 2 weeks total.
- Continue prophylactic abx while packing in place.
- Continue efforts at post-op pain control.
- Follow-up with Neurosurgery at [place] as scheduled.
- ED spoke with [place] [facility] this evening and they are aware of current issues / findings / etc.
Mechanical AVR
Paroxysmal Atrial Fibrillation
- I saw a single EKG from 2020 with A-Fib - all others are NSR.
- On Coumadin primarily for mechanical AVR.
- Currently on Lovenox bridge with today's home INR = 1.0 and 1.08 here in the ED.
- Continue Lovenox BID for now.
- Follow INR daily and dose Coumadin daily as needed (7.5mg given on admission).
Benign Hypertension
h/o Thoracic Aortic Dissection
h/o Hemorrhagic CVA
- Follow BP and adjust med regimen as needed.
- Hold further HCTZ / other diuretics.
- Continue lisinopril and amlodipine.
DVT Prophylaxis: On Lovenox / Coumadin
Code Status: Full
[2025-07-25] MEDS: COUMADIN 7.5 MG PO (22:27)
[2025-07-25 23:42] LABS: Sodium 114 mmol/L (135-145)
[2025-07-26] VITALS (14 sets, daily range): BP systolic 102–140; BP diastolic 70–89; BMI 28.1
[2025-07-26] MEDS: ROXICODONE 5 MG PO ×5 (00:21→18:01)
--- NOTE | 2025-07-26 00:55 | PTCARENOTE ---
Report received from Kelli MCLEOD. Pt transported in the stretcher to IMU. Pt AAOx3, pleasant. Pt slightly drowsy and states she feels 'foggy'. Pt stood and pivoted to the bed with standby assistance. 3% saline infusing. Pt c/o headache in the front
of her head, PRN Roxicodone administered see NOV. NSR on the monitor. 96% on RA. Assessment and admission done, see worklist. Pt oriented to the unit, call mondragon within reach.
[2025-07-26 01:18] LABS: Sodium 115 mmol/L (135-145)
[2025-07-26] MEDS: LOVENOX 80 MG SC ×2 (02:42→13:33)
[2025-07-26 04:43] LABS: Hematocrit 30.2 % (37.0-47.0); Hemoglobin 10.9 g/dL (12.0-16.0); Mean Corp Hgb Conc. 36.1 g/dL (33.0-37.0); Mean Corpuscular Volume 93.8 fL (81.0-99.0); Platelet Count 271 10^3/uL (130-400); Red Cell Dist. Width 12.9 % (11.5-14.5)
[2025-07-26 04:45] LABS: INR 1.05; PT 14.2 Sec (11.4-14.6)
[2025-07-26 05:06] LABS: Sodium 114 mmol/L (135-145)
--- NOTE | 2025-07-26 05:31 | PTCARENOTE ---
Patient c/o pain and stiffness to back of the neck as well as 6/10 pain in the front of her head. Warm compress applied to back of the neck. PRN Roxicodone administered.
[2025-07-26] MEDS: SODIUM CHLORIDE 3% 250 IV ×2 (05:45→13:33)
[2025-07-26] MEDS: AUGMENTIN 875 MG/125 MG 1 TABLET PO ×2 (07:40→19:54)
[2025-07-26] MEDS: NORVASC 5 MG PO (07:40)
[2025-07-26] MEDS: ZESTRIL 10 MG PO (07:41)
--- NOTE | 2025-07-26 08:06 | W.PN.HOSP.TC ---
Addendum entered and electronically signed by Demetris Jones MD 07/26/25 13:36:
Attending�addendum:
I saw and evaluated the patient. I reviewed the resident�s note and agree with findings and plan as documented in the resident�s note.�patient admitted last night with weakness, dizziness, has recent trans-sphenoidal resection of pituitary lesion,
admitted with symptomatic hyponatremia. patient started on normal saline 3%
Nephrology consulted
serum osmo 253
urine osm 634
urine sodium 211
sodium so far 118-->114-->115-->114-->116--->119
TSH 0.73, am cortisol 9.0
Physical�exam:
GENERAL : Looks very tired, nasal packing
HEENT: Nonicteric sclerae, PERRLA, EOMI. Oropharynx clear. Moist mucous membranes. Conjunctivae appear well perfused.
CHEST: Chest wall is nontender.
HEART: Regular rate and rhythm without murmurs.
LUNGS: Clear to auscultation bilaterally.
ABDOMEN: Soft, positive bowel sounds, nontender, no organomegaly.
RECTAL: Deferred.
MUSCLES/EXTREMITIES: No abnormal range of motion, no swelling.SKIN: No rash, no excessive bruising, petechiae, or purpura.
NEUROLOGIC: Tired
�
Assessment/plan:
Symptomatic hyponatremia
Continue 3% normal saline
Texted endocrine and neurosurgery at [facility]
Pituitary tumor status post transsphenoidal resection
Follow-up with neurosurgery as outpatient
Mechanical AVR
Continue Coumadin/Lovenox
CODE STATUS: Full code
DVT prophylaxis: Lovenox/Coumadin
Diet: Regular diet
Disposition: Continue to monitor sodium
�
Total time spent on today�s encounter was 55 minutes which included time spent in counseling the patient/family regarding diagnosis and treatment plan as listed above, goals of care, and symptom management. Case was discussed with nursing staff,
specialists, and care coordinators/case management. All labs and imaging personally reviewed by me. Remainder the time spent in detailed review of previous records, lab data, imaging, and other medical provider documentation.
Original Note:
Today's Communication/Plan
-
Trend BMP
Continue hypertonic saline
Trend INR
[facility]
Assessment / Plan
Assessment / Plan
IMPRESSION:
55-year-old with a past medical history of hypertension, thoracic aortic aneurysm, hemorrhagic CVA, mechanical AVR and recent transsphenoidal pituitary resection on 07/18/2025 who presented to the ED with fatigue, headache and neck pain. Patient
took 2 doses of HCTZ as needed because of elevated blood pressure at home. Na in ED was 118.
CT head 07/25/25: Postsurgical changes. No acute intracranial hemorrhage.
PLAN:
# Symptomatic hyponatremia
Recent neurosurgery 07/18/25, discharged from 07/21/25
s/p 2 doses of HCTZ PRN recently
Serial Na 118, 115, 114, 116 since arrival.
Urine studies show high urine osm high and urine sodium, indicating SIADH
Cortisol and TSH normal.
Nephrology consulted. Continue hypertonic saline.� Avoid correcting >8 mEq/L per 24 hours to avoid osmotic demyelination syndrome.
Monitor for improvement.
Dr. Jones will contact [employer] Dr. Emma Burnett at [place]. Consider stress dose steroids.
# Status post transsphenoidal resection of pituitary tumor 07/18/25
CT head as above
Post-op day 8 07/26/25
Nasal packing to be in place for 2 weeks total. Continue prophylactic antibiotics.
Pain control
Follow up with [facility]. Team aware that patient is in the hospital.
# Paroxysmal atrial fibrillation
# Mechanical AVR
EKG NSR
On Coumadin for aortic valve replacement�
INR 1.08 07/25/25.� Continue Lovenox BID bridging until INR 2.5-3.5.
Trend INR and dose Coumadin as needed (7.5 mg on admission)
# Essential hypertension
# History of aortic dissection
# History of hemorrhagic CVA
Continue lisinopril and amlodipine
Hold HCTZ.
Full code
DVT prophylaxis: Lovenox/ Coumadin
Anticipated Discharge: > 48 hours
Subjective/Interval History
-
Date of Service: July 26, 2025
Patient evaluated at bedside this morning. She states she feels slightly better than yesterday, but still has a headache/neck pain. No new complaints.
Objective Data
-
Labs:
Laboratory Results
07/25/25 07/26/25 07/26/25
23:14 00:45 04:25
WBC 7.4
Hgb 10.9 L
Hct 30.2 L
Plt Count 271
PT 14.2
INR 1.05
Sodium 114 L* 115 L* 114 L*
07/26/25 07/26/25
08:00 12:00
WBC
Hgb
Hct
Plt Count
PT
INR
Sodium Pending Pending
Vital Signs:
Vital Signs
Temp Pulse Resp BP Pulse Ox
97.5 F 62 17 140/75 97
07/26/25 07:24 07/26/25 07:45 07/26/25 07:45 07/26/25 07:41 07/26/25 07:45
I&O
07/25/25 07/26/25 07/27/25
06:59 06:59 06:59
Intake Total 240 / 240
Output Total 800 / 800
Balance -560 / -560
Review of Systems
-
History Source: Patient
Constitutional: Reports No Symptoms and Fatigue
EENT: Reports No Symptoms Reported
Respiratory: Reports No Symptoms
Cardiac: Reports No Symptoms
Abdomen/GI: Reports No Symptoms
Musculoskeletal: Reports No Symptoms
Neuro: Reports Dizzy and Headache
Endocrine: Reports No Symptoms
Hematologic / Lymphatic: Reports No Symptoms
Allergy / Immunology: Reports No Symptoms
Physical Exam
-
General: Well Developed, Well Nourished, No Apparent Distress, Comfortable and Conversant
HEENT: Normocephalic, Atraumatic, Moist Mucous Membranes, Anicteric, Nose Appears Normal and Ears Appear Normal
Respiratory: Clear to Auscultation
Cardiac: Regular Rhythm and S1/S2
GI: Soft, Nontender, Nondistended, Normal Bowel Sounds and No Hepatosplenomegaly
Skin: Warm
Neuro: Awake and AO x 3
Psych: Calm
Data Reviewed
-
Labs: Labs Reviewed by me, Discussed with Physician and Discussed with Patient
Old Records: Reviewed
--- NOTE | 2025-07-26 08:22 | PTCARENOTE ---
Assumed care of patient at 0700. Pt vitals stable. SR on monitor. Patient with nasal packing with old drainage noted. Pt oriented but drowsy. Pt still with pain to head and neck. Encouraged pt to order breakfast. AM meds given. Labs to be done
soon for sodium. Pt with 3% normal saline running through RAC.
[2025-07-26 09:52] LABS: Sodium 116 mmol/L (135-145)
[2025-07-26 11:03] LABS: Cortisol, Random 9.0 ug/dl; TSH 0.73 uIU/ml (0.47-4.68)
[2025-07-26] MEDS: LASIX 20 MG IV (11:14)
[2025-07-26 12:53] LABS: Sodium 119 mmol/L (135-145)
--- NOTE | 2025-07-26 15:34 | W.CON.NEPH ---
Consultation
-
Date/Time Consultation Requested: 07/26/2025 9 AM
Date/Time Consultation Performed: 07/26/2020 5:10 AM
Requesting Provider: Dr. Rand
Performing Provider: Dr. Oconnell
Reason for Consultation: Hyponatremia
Medical History
-
Chief Complaint: Hyponatremia
History of Present Illness:
55-year-old female who has mechanical aortic valve replacement on Coumadin, hypertension on a multidrug regimen who uses hydrochlorothiazide only as needed for higher blood pressure readings. She had suffered a stroke which then diagnosed an
incidental macroadenoma of the pituitary. She underwent transsphenoidal resection on July 18, 2025 at [facility]. Postoperatively she had had pain with increased headache. She was told to continue pain medications
postoperatively. She then developed higher blood pressure readings and taken 2 doses of hydrochlorothiazide which she does not believe had helped her blood pressures much. She then began developing significant fatigue and tiredness. She knew
something was wrong and called emergency medical services. In the emergency room she was noted to have a sodium level of 118. She was not hypertensive fortunately.
Past Medical History
Hypertension
Thoracic Aortic Dissection
Hemorrhagic CVA
Pituitary Tumor
Paroxysmal A-Fib
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
R Frontotemporal Craniotomy
Mechanical AVR (x 2)
Appendectomy
Social History
Tobacco: Non-Smoker
Alcohol: None
Family History
Family History: Not Pertinent
Allergies / Home Medications
Allergy/AdvReac Type Severity Reaction Status Date / Time
ciprofloxacin (From Cipro) Allergy Unknown Verified 07/25/25 18:38
ciprofloxacin HCl (From Allergy Unknown Verified 07/25/25 18:38
Cipro)
methylprednisolone sodium Allergy HTN, Rapid Verified 07/25/25 18:38
succinate (From Solu-Medrol) HR
Quinolones Allergy Unknown Verified 07/25/25 18:38
�Medication �Instructions �Recorded �Confirmed �Type
alprazolam 0.25 mg tablet 0.25 mg PO Q8HPRN PRN anxiety 02/21/25 07/25/25 History
amlodipine 5 mg tablet 5 mg PO DAILY Blood Pressure 02/21/25 07/25/25 History
lisinopril 10 mg tablet 10 mg PO DAILY Blood Pressure 02/21/25 07/25/25 History
lisinopril 2.5 mg tablet 2.5 mg PO DAILY PRN Blood Pressure 02/21/25 07/25/25 History
warfarin 5 mg tablet 5 - 10 mg PO QPM Blood Clot 02/21/25 07/25/25 History
Prevention/Tx
amoxicillin 875 mg-potassium 1 tab PO BID Infection 07/25/25 07/25/25 History
clavulanate 125 mg tablet
enoxaparin 80 mg/0.8 mL 80 mg SC Q12H Blood Clot 07/25/25 07/25/25 History
subcutaneous syringe (Lovenox) Prevention/Tx
hydrochlorothiazide 12.5 mg tablet 12.5 mg PO DAILY PRN High BP 07/25/25 07/25/25 History
oxycodone 5 mg tablet 5 mg PO Q4H PRN Pain 07/25/25 07/25/25 History
Review of Systems
-
Fatigue, headache
All other systems: Negative unless noted
Physical Exam
Vital Signs
Vital Signs
Temp Pulse Resp BP Pulse Ox
98.5 F 73 16 129/89 97
07/26/25 11:24 07/26/25 14:30 07/26/25 14:30 07/26/25 14:00 07/26/25 14:30
Lab Results
WBC 7.4 10^3/uL (4.8-10.8) 07/26/25 04:25
RBC 3.22 10^6/uL (4.20-5.40) L 07/26/25 04:25
Hgb 10.9 g/dL (12.0-16.0) L 07/26/25 04:25
Hct 30.2 % (37.0-47.0) L 07/26/25 04:25
Plt Count 271 10^3/uL (130-400) 07/26/25 04:25
eGFR > 60.00 07/25/25 18:35
Laboratory Tests
02/22/25 07/26/25
06:37 11:04
Sodium 137
Urine Osmolality 703
Urine Sodium 185 H
Physical Exam
Patient is awake alert oriented and in no distress. Mood and affect were pleasant, insight and judgment were good. Pupils are equal round and reactive to light, extraocular movements are intact, sclera were anicteric. Hearing was normal, ears and
nose are intact. Oropharynx was clear. Neck was supple with trachea midline and no thyromegaly. Heart was regular rate and rhythm without rubs. Lower extremities without edema. Lungs were clear to auscultation bilaterally and with normal
excursion. Abdomen was soft, nontender, with normal active bowel sounds, and no hepatosplenomegaly. Skin was without rash and with normal turgor.
Data Reviewed
-
CT Scan: Report Reviewed by me (CT of the head 07/25/2025 postsurgical changes only, bilateral sinus opacification maxillary and ethmoid)
Labs: Labs Reviewed by me
Old Records: Reviewed
Assessment/Plan
-
Assessment
Hyponatremia acute
Recent pituitary tumor resection
Hypertension
Mechanical AVR
Plan
She is currently on third hypertonic solution
Follow BMP serially
Ultimately she will likely benefit from Samsca given the very high urine osmolality we will need to stabilize her sodium level first
Will offer another dose of Lasix this evening
--- NOTE | 2025-07-26 16:50 | CM ---
aquatic centre manager reviewed patient's chart and met with patient and patient lives with her spouse and children in a 2 story home, is independent with adl's and ambulation no dme, patient works, home when stable.
PCP: Dr Camarena
Pharmacy: [facility] in [place]
[2025-07-26 17:34] LABS: Blood Urea Nitrogen 11 mg/dl (7-17); Calcium 9.1 mg/dl (8.4-10.2); Carbon Dioxide 20 mmol/L (22-30); Chloride 91 mmol/L (98-107); Estimated Creatinine Clearance 120 ml/min; Glucose 116 mg/dl (70-99); Potassium 4.0 mmol/L (3.5-5.1); Sodium 117 mmol/L (135-145); eGFR > 60.00
--- NOTE | 2025-07-26 17:40 | VATNOTE ---
07/26 @ 3738 - received call for peripheral IV assessment. Pt c/o pain to site. IV flushed with NSS. Pt receiving iron infusion through new IV site, educated on the concentration of the medication and that it can cause discomfort to IV site. Pt
educated that if pain persists or worsens, please notify RN for IV restart. Pt verbalized understanding.
[2025-07-26] MEDS: COUMADIN 10 MG PO (17:58)
--- NOTE | 2025-07-26 18:41 | PTCARENOTE ---
Pt oozing out of her external nasal packing. 4x4's and tape placed. Pt has internal packing up her nose into forehead per patient. That packing was untouched. Dr Willson notified via TT of the oozing.
[2025-07-26 20:44] LABS: Blood Urea Nitrogen 11 mg/dl (7-17); Calcium 8.8 mg/dl (8.4-10.2); Carbon Dioxide 23 mmol/L (22-30); Chloride 90 mmol/L (98-107); Estimated Creatinine Clearance 120 ml/min; Glucose 138 mg/dl (70-99); Potassium 3.9 mmol/L (3.5-5.1); Sodium 118 mmol/L (135-145); eGFR > 60.00
[2025-07-26] MEDS: DILAUDID 0.5 MG IV (21:39)
[2025-07-26] MEDS: SAMSCA 15 MG PO (21:40)
--- NOTE | 2025-07-26 21:45 | PTCARENOTE ---
20:00 Na 118 & 3% NS order reached stop date. Dr. Oconnell made aware of results. order received to administer 15 mg Po samsca. medication administered to Pt, see NOV.
[2025-07-27] VITALS (10 sets, daily range): BP systolic 99–121; BP diastolic 60–94; BMI 27.5
--- NOTE | 2025-07-27 01:00 | PTCARENOTE ---
Pts external nasal dressing saturated with blood. external dressing replaced. internal packing remains in place and is untouched. pt VSS.
[2025-07-27] MEDS: LOVENOX 80 MG SC ×2 (01:04→12:21)
[2025-07-27] MEDS: XANAX 0.25 MG PO (01:23)
[2025-07-27 04:48] LABS: Hematocrit 34.0 % (37.0-47.0); Hemoglobin 11.7 g/dL (12.0-16.0); Mean Corp Hgb Conc. 34.4 g/dL (33.0-37.0); Mean Corpuscular Volume 96.6 fL (81.0-99.0); Nucleated Red Blood Cells % 0 %; Platelet Count 280 10^3/uL (130-400); Red Cell Dist. Width 13.2 % (11.5-14.5)
[2025-07-27 04:58] LABS: INR 1.18; PT 15.3 Sec (11.4-14.6)
[2025-07-27 05:18] LABS: ALT (SGPT) 22 U/L (0-35); AST (SGOT) 22 U/L (14-36); Albumin 4.0 g/dl (3.5-5.0); Alkaline Phosphatase 69 U/L (38-126); Blood Urea Nitrogen 8 mg/dl (7-17); Calcium 9.4 mg/dl (8.4-10.2); Carbon Dioxide 24 mmol/L (22-30); Chloride 100 mmol/L (98-107); Estimated Creatinine Clearance 107 ml/min; Glucose 127 mg/dl (70-99); Magnesium 2.1 mg/dl (1.6-2.3); Potassium 4.2 mmol/L (3.5-5.1); Sodium 129 mmol/L (135-145); Total Protein 6.6 g/dl (6.3-8.2); eGFR > 60.00
[2025-07-27] MEDS: AUGMENTIN 875 MG/125 MG 1 TABLET PO ×2 (07:23→20:27)
[2025-07-27] MEDS: ROXICODONE 5 MG PO ×3 (07:23→18:18)
[2025-07-27] MEDS: ZESTRIL PO (07:24)
[2025-07-27] MEDS: NORVASC PO (07:24)
--- NOTE | 2025-07-27 08:25 | W.PN.HOSP.TC ---
Addendum entered and electronically signed by Demetris Jones MD 07/27/25 12:59:
Attending�addendum:
I saw and evaluated the patient. I reviewed the resident�s note and agree with findings and plan as documented in the resident�s note. Patient seen and examined at bedside, denies any chest pain or shortness of breath, no abdominal pain, no nausea,
no vomiting, no diarrhea or constipation.
Sodium overcorrected to 153
Nephrology recommending D5W
Minimal bloody oozing from left naris
Physical�exam:
GENERAL : Looks very tired, nasal packing, clotted blood from left naris
HEENT: Nonicteric sclerae, PERRLA, EOMI. Oropharynx clear. Moist mucous membranes. Conjunctivae appear well perfused.
CHEST: Chest wall is nontender.
HEART: Regular rate and rhythm without murmurs.
LUNGS: Clear to auscultation bilaterally.
ABDOMEN: Soft, positive bowel sounds, nontender, no organomegaly.
RECTAL: Deferred.
MUSCLES/EXTREMITIES: No abnormal range of motion, no swelling.SKIN: No rash, no excessive bruising, petechiae, or purpura.
NEUROLOGIC: Tired
�
Assessment/plan:
Symptomatic hyponatremia
Overcorrected to 133
Nephrology following, started D5 W
Pituitary tumor status post transsphenoidal resection
Follow-up with neurosurgery as outpatient
Appreciate endocrine input
Mechanical AVR
Continue Coumadin/Lovenox
Minimal left naris obstructive.
Compression, Afrin.
CODE STATUS: Full code
DVT prophylaxis: Lovenox/Coumadin
Diet: Regular diet
Disposition: Continue to monitor sodium
�
Total time spent on today�s encounter was 55 minutes which included time spent in counseling the patient/family regarding diagnosis and treatment plan as listed above, goals of care, and symptom management. Case was discussed with nursing staff,
specialists, and care coordinators/case management. All labs and imaging personally reviewed by me. Remainder the time spent in detailed review of previous records, lab data, imaging, and other medical provider documentation.
Original Note:
Today's Communication/Plan
-
D5W 250 ml/hr in the setting of overcorrection of Na
Trend BMP
Continue prophylactic Augmentin BID
Clotrimazole cream BID
Assessment / Plan
Assessment / Plan
IMPRESSION:
55-year-old with a past medical history of hypertension, thoracic aortic aneurysm, hemorrhagic CVA, mechanical AVR and recent transsphenoidal pituitary resection on 07/18/2025 who presented to the ED with fatigue, headache and neck pain. Patient
took 2 doses of HCTZ as needed because of elevated blood pressure at home. Na in ED was 118.
CT head 07/25/25: Postsurgical changes. No acute intracranial hemorrhage.
PLAN:
# Symptomatic hyponatremia
Recent neurosurgery 07/18/25, discharged from 07/21/25
s/p 2 doses of HCTZ PRN recently
Na 118 in the ED.
Urine studies show high urine osm high and urine sodium, indicating SIADH
Cortisol and TSH normal.
Nephrology consulted. s/p hypertonic saline.� Na 07/27/25 is 133, which indicates overcorrection of sodium. Will start D5W 250 ml/hr as per Nephrology recs.
Monitor for improvement.
Dr. Jones updated [employer] Team Technician Dr. Emma Burnett at [place].
# Status post transsphenoidal resection of pituitary tumor 07/18/25
# Nasal bleeding
CT head as above
Post-op day 8 07/26/25
Nasal packing to be in place for 2 weeks total. Continue prophylactic antibiotics.
Patient having bleeding from nose overnight 07/27/2025. Will contact ENT.
Pain control
Follow up with [place]. Team aware that patient is in the hospital.
#Vaginal itching -likely yeast infection in the setting of recent antibiotic
Will give topical clotrimazole cream twice daily
Monitor for improvement
# Paroxysmal atrial fibrillation
# Mechanical AVR
EKG NSR
On Coumadin for aortic valve replacement�
INR 1.08 07/25/25; INR 1.18 07/27/25. Continue Lovenox BID bridging until INR 2.5-3.5.
Dose Coumadin as needed- 7.5 mg on 07/25/25, 10 mg on 07/26/25, 7.5 on 07/27/25 and 07/28/25
# Essential hypertension
# History of aortic dissection
# History of hemorrhagic CVA
Continue lisinopril and amlodipine
Hold HCTZ.
Full code
DVT prophylaxis: Lovenox/ Coumadin
Anticipated Discharge: > 48 hours
Subjective/Interval History
-
Date of Service: July 27, 2025
Patient evaluated at bedside this morning. She states she feels much better than before. Patient has some mild clotting in the left naris, but no active bleeding. She states she is having vaginal itching and is likely due to a yeast infection
given recent antibiotics. Patient is also requesting probiotics at this time.
Objective Data
-
Labs:
Laboratory Results
07/26/25 07/27/25
20:02 04:39
WBC 6.0
Hgb 11.7 L
Hct 34.0 L
Plt Count 280
PT 15.3 H
INR 1.18
Sodium 118 L* 129 L D
Potassium 3.9 4.2
Chloride 90 L 100
Carbon Dioxide 23 24
BUN 11 8
Creatinine 0.5 L 0.6
Glucose 138 H 127 H
Calcium 8.8 9.4
Total Bilirubin 0.9
AST 22
ALT 22
Alkaline Phosphatase 69
Vital Signs:
Vital Signs
Temp Pulse Resp BP Pulse Ox
98.2 F 68 15 99/65 97
07/27/25 07:21 07/27/25 07:30 07/27/25 07:30 07/27/25 07:24 07/27/25 07:34
I&O
07/26/25 07/27/25 07/28/25
06:59 06:59 05:59
Intake Total 240 / 240
Output Total 800 / 800 4550 / 4550 400 / 400
Balance -560 / -560 -4550 / -4550 -400 / -400
Review of Systems
-
History Source: Patient
All other systems: Reviewed and negative
Constitutional: Reports No Symptoms
EENT: Reports Bloody Nose
Respiratory: Reports No Symptoms
Cardiac: Reports No Symptoms
Abdomen/GI: Reports No Symptoms
Breast: Reports No Symptoms
Genitourinary: Reports Other (Vaginal itching)
Musculoskeletal: Reports No Symptoms
Skin: Reports No Symptoms
Endocrine: Reports No Symptoms
Hematologic / Lymphatic: Reports No Symptoms
Allergy / Immunology: Reports No Symptoms
Physical Exam
-
General: Well Developed, Well Nourished, No Apparent Distress, Comfortable and Conversant
HEENT: Normocephalic, Atraumatic, Moist Mucous Membranes and Anicteric
Respiratory: Clear to Auscultation
Cardiac: Regular Rhythm and S1/S2 (no murmur)
GI: Soft, Nontender, Nondistended, Normal Bowel Sounds and No Hepatosplenomegaly
Musculoskeletal: No Clubbing, No Cyanosis, Edema, Left Upper Extrem (1+) and Edema, Right Lower Extrem (1+)
Neuro: Awake and AO x 3
Psych: Calm
Data Reviewed
-
Labs: Labs Reviewed by me and Discussed with Physician
Old Records: Reviewed
--- NOTE | 2025-07-27 10:21 | CON.MD ---
Consultation - Medical
-
55 y.o. WF with history of mechanical AV from bicuspid AV and aortic dissection age 28 presented with mental status changes and Na of 114 in the setting of recent TSR pituitary macroadenoma at [facility] a few days ago. She was placed on hypertonic saline
and fluid restriction. I met her initially at when she was admitted for CVA workup with vision loss in January 2025. Pituitary macroadenoma (nonfunctioning as far as we know) diagnosed at that time and she has been followed at [facility] since. Na had
slowly increased up to 119 when I evaluated her last evening. Hypertonic saline was being administered and tolvaptan given. This a.m. Na up to 129 and hypertonic saline has been stopped. Pt having oozing through the surgical site. On blood thinners
for MV. I do not see evidence for adrenal insufficiency or thyroid imbalance based upon clinical appearance and labs done to date. Pt hemodynamically stable. Na will need to be monitored carefully off saline and fluid restriction in place. It
remains to be seen whether she will complete the 'triphasic ADH response' and develop DI from exhaustion of ADH reserves, or whether she will recover the ability to generate this on her own. She is a patient of Emma Lee, pituitary
specialist at [facility] and has appt within 2 weeks. She will need to be in close contact with her office upon discharge. Na should be monitored every 4 hours at least. Please call with questions.
--- NOTE | 2025-07-27 10:59 | PTCARENOTE ---
Assumed care of patient at 0700. Pt vitals stable. SR on monitor. Patient still with nasal dressing, only minimal drainage noted today. Pt still with pain to head and neck. Oxy given. Encouraged pt to order breakfast. Pt did get up and wash up and
states she is feeling a little better. C/O vaginal itch from ABX- meds ordered.
[2025-07-27 11:11] LABS: Blood Urea Nitrogen 9 mg/dl (7-17); Calcium 10.1 mg/dl (8.4-10.2); Carbon Dioxide 24 mmol/L (22-30); Chloride 103 mmol/L (98-107); Estimated Creatinine Clearance 80 ml/min; Glucose 143 mg/dl (70-99); Potassium 4.7 mmol/L (3.5-5.1); Sodium 133 mmol/L (135-145); eGFR > 60.00
--- NOTE | 2025-07-27 12:14 | W.PN.NEPH.PH ---
Today's Communication / Plan
-
D5W at 250 ml/hr
Assessment/Plan
-
Assessment
Hyponatremia acute
Recent pituitary tumor resection
Hypertension
Mechanical AVR
Plan
BMP serially
D5W to reduce Na closer to 124
follow Uosm for duration of samsca effect
-
-
Date of Service: July 27, 2025
CC / HPI / ROS
-
Chief Complaint:
hyponatremia
History of Present Illness:
Na did not budge with 3% x 3, but jumped to 133 this am with samsca last night
BP low but stable
pain controlled
Review of Systems:
no CP/SOB
Labs
-
Labs:
WBC 6.0 10^3/uL (4.8-10.8) 07/27/25 04:39
RBC 3.52 10^6/uL (4.20-5.40) L 07/27/25 04:39
Hgb 11.7 g/dL (12.0-16.0) L 07/27/25 04:39
Hct 34.0 % (37.0-47.0) L 07/27/25 04:39
Plt Count 280 10^3/uL (130-400) 07/27/25 04:39
eGFR > 60.00 07/27/25 10:38
Albumin 4.0 g/dl (3.5-5.0) 07/27/25 04:39
Physical Exam
-
Vital Signs:
Vital Signs
Temp Pulse Resp BP Pulse Ox
97.9 F 68 15 99/65 97
07/27/25 11:00 07/27/25 07:30 07/27/25 07:30 07/27/25 07:24 07/27/25 07:34
Cardiovascular:: Regular rate and rhythm
Respiratory:: Bilateral: Coarse
Lung Excursion:: Normal
Abdomen:: Nontender and Soft
Bowel Sounds:: Normal
Extremity Edema:: None: Bilateral:
[2025-07-27] MEDS: VISBIOME 1 CAP PO (12:19)
[2025-07-27] MEDS: LOTRIMIN 1% CREAM 1 APPLIC TOPICAL ×2 (12:19→20:27)
[2025-07-27] MEDS: D5W 1000 IV ×4 (12:19→17:50)
[2025-07-27 16:41] LABS: Blood Urea Nitrogen 11 mg/dl (7-17); Calcium 10.2 mg/dl (8.4-10.2); Carbon Dioxide 25 mmol/L (22-30); Chloride 104 mmol/L (98-107); Estimated Creatinine Clearance 92 ml/min; Glucose 107 mg/dl (70-99); Potassium 4.1 mmol/L (3.5-5.1); Sodium 134 mmol/L (135-145); eGFR > 60.00
[2025-07-27] MEDS: COUMADIN 7.5 MG PO (17:50)
[2025-07-27 20:52] LABS: Blood Urea Nitrogen 11 mg/dl (7-17); Calcium 10.2 mg/dl (8.4-10.2); Carbon Dioxide 24 mmol/L (22-30); Chloride 103 mmol/L (98-107); Estimated Creatinine Clearance 92 ml/min; Glucose 105 mg/dl (70-99); Sodium 133 mmol/L (135-145); eGFR > 60.00
[2025-07-27 20:59] LABS: Potassium 4.3 mmol/L (3.5-5.1)
[2025-07-27] MEDS: DILAUDID 0.5 MG IV (23:52)
[2025-07-28] VITALS (13 sets, daily range): BP systolic 101–147; BP diastolic 74–108; BMI 25.9
[2025-07-28 00:37] LABS: Blood Urea Nitrogen 10 mg/dl (7-17); Calcium 10.0 mg/dl (8.4-10.2); Carbon Dioxide 25 mmol/L (22-30); Chloride 103 mmol/L (98-107); Estimated Creatinine Clearance 107 ml/min; Glucose 149 mg/dl (70-99); Potassium 4.1 mmol/L (3.5-5.1); Sodium 133 mmol/L (135-145); eGFR > 60.00
[2025-07-28] MEDS: D5W 1000 IV ×3 (01:05→08:24)
[2025-07-28] MEDS: LOVENOX 80 MG SC ×2 (01:05→12:52)
[2025-07-28 04:19] LABS: Hematocrit 35.3 % (37.0-47.0); Hemoglobin 11.9 g/dL (12.0-16.0); Mean Corp Hgb Conc. 33.7 g/dL (33.0-37.0); Mean Corpuscular Volume 96.7 fL (81.0-99.0); Nucleated Red Blood Cells % 0 %; Platelet Count 334 10^3/uL (130-400); Red Cell Dist. Width 14.2 % (11.5-14.5)
[2025-07-28 04:30] LABS: INR 1.30; PT 16.5 Sec (11.4-14.6)
[2025-07-28 04:44] LABS: ALT (SGPT) 23 U/L (0-35); AST (SGOT) 21 U/L (14-36); Albumin 4.3 g/dl (3.5-5.0); Alkaline Phosphatase 64 U/L (38-126); Blood Urea Nitrogen 7 mg/dl (7-17); Calcium 9.9 mg/dl (8.4-10.2); Carbon Dioxide 25 mmol/L (22-30); Chloride 104 mmol/L (98-107); Estimated Creatinine Clearance 107 ml/min; Glucose 137 mg/dl (70-99); Magnesium 2.1 mg/dl (1.6-2.3); Potassium 4.0 mmol/L (3.5-5.1); Sodium 137 mmol/L (135-145); Total Protein 7.0 g/dl (6.3-8.2); eGFR > 60.00
[2025-07-28] MEDS: DILAUDID 0.5 MG IV ×3 (05:29→17:59)
--- NOTE | 2025-07-28 07:39 | W.PN.HOSP.TC ---
Addendum entered and electronically signed by Demetris Jones MD 07/28/25 13:56:
Attending�addendum:
I saw and evaluated the patient. I reviewed the resident�s note and agree with findings and plan as documented in the resident�s note. Patient seen and examined at bedside, denies any chest pain or shortness of breath, no abdominal pain, no nausea,
no vomiting, no diarrhea or constipation.
Sodium level 137
Nephrology recommending to Dc D5W
Minimal bloody oozing from left naris added Afrin.
Physical�exam:
GENERAL : Looks very tired, nasal packing, clotted blood from left naris
HEENT: Nonicteric sclerae, PERRLA, EOMI. Oropharynx clear. Moist mucous membranes. Conjunctivae appear well perfused.
CHEST: Chest wall is nontender.
HEART: Regular rate and rhythm without murmurs.
LUNGS: Clear to auscultation bilaterally.
ABDOMEN: Soft, positive bowel sounds, nontender, no organomegaly.
RECTAL: Deferred.
MUSCLES/EXTREMITIES: No abnormal range of motion, no swelling.SKIN: No rash, no excessive bruising, petechiae, or purpura.
NEUROLOGIC: Tired
�
Assessment/plan:
Symptomatic hyponatremia
now 137
Nephrology following,
Hold further D5W
Pituitary tumor status post transsphenoidal resection
Follow-up with neurosurgery as outpatient
Appreciate endocrine input
Mechanical AVR
Continue Coumadin/Lovenox
Minimal left naris obstructive.
Compression, Afrin.
CODE STATUS: Full code
DVT prophylaxis: Lovenox/Coumadin
Diet: Regular diet
Disposition: Continue to monitor sodium
Communication: Send communication texting via [facility] physician link chart to both neurosurgery and endocrine at [facility].
�
Total time spent on today�s encounter was 55 minutes which included time spent in counseling the patient/family regarding diagnosis and treatment plan as listed above, goals of care, and symptom management. Case was discussed with nursing staff,
specialists, and care coordinators/case management. All labs and imaging personally reviewed by me. Remainder the time spent in detailed review of previous records, lab data, imaging, and other medical provider documentation.
Original Note:
Today's Communication/Plan
-
Trend BMP, Nephrology following.
Warfarin 10 mg dose tonight
Trend INR
Afrin nasal spray for nosebleeds
Assessment / Plan
Assessment / Plan
IMPRESSION:
55-year-old with a past medical history of hypertension, thoracic aortic aneurysm, hemorrhagic CVA, mechanical AVR and recent transsphenoidal pituitary resection on 07/18/2025 who presented to the ED with fatigue, headache and neck pain. Patient
took 2 doses of HCTZ as needed because of elevated blood pressure at home. Na in ED was 118.
CT head 07/25/25: Postsurgical changes. No acute intracranial hemorrhage.
PLAN:
# Symptomatic hyponatremia
Recent neurosurgery 07/18/25, discharged from 07/21/25
s/p 2 doses of HCTZ PRN recently
Na 118 in the ED.
Urine studies show high urine osm high and urine sodium, indicating SIADH
Cortisol and TSH normal.
Nephrology consulted. s/p hypertonic saline.� Na 07/27/25 is 133, which indicates overcorrection of sodium. Given D5W 250 ml/hr as per Nephrology recs 07/27/25.
Na 137 . Trend BMP before resuming D5W.
# Status post transsphenoidal resection of pituitary tumor 07/18/25
# Nasal bleeding
CT head as above
Nasal packing to be in place for 2 weeks total. Continue prophylactic antibiotics.
Patient having intermittent nasal bleeding during admission. Will give Afrin nasal spray for vasoconstriction of vessels.
Pain control
[facility] messaged regarding updates. Team was made aware that patient is in the hospital when admitted.
# Neck pain
Patient having unilateral neck pain-most likely muscle strain.
Will give lidocaine patch daily and Baclofen PRN.
Monitor for improvement.
#Vaginal itching -likely yeast infection in the setting of recent antibiotic
Will give topical clotrimazole cream twice daily
Monitor for improvement
# Paroxysmal atrial fibrillation
# Mechanical AVR
EKG NSR
On Coumadin for aortic valve replacement�
INR 1.08 07/25/25; INR 1.18 07/27/25; 1.30 on 07/28/25. Continue Lovenox BID bridging until INR 2.5-3.5.
Dose Coumadin as needed- 7.5 mg on 07/25/25, 10 mg on 07/26/25, 7.5 on 07/27/25, 10 mg on 07/28/25
# Essential hypertension
# History of aortic dissection
# History of hemorrhagic CVA
Continue lisinopril and amlodipine
Hold HCTZ.
Full code
DVT prophylaxis: Lovenox/ Coumadin
Anticipated Discharge: > 48 hours
Subjective/Interval History
-
Date of Service: July 28, 2025
Patient evaluated at bedside this morning. She expresses that she has unilateral neck pain, and her nosebleeds have persisted however slowing down this morning. She states she feels more confused today. Patient has an ENT appointment on 07/31/2025
to remove nasal packing.
Objective Data
-
Labs:
Laboratory Results
07/27/25 07/28/25 07/28/25
20:09 00:05 04:04
WBC 7.9
Hgb 11.9 L
Hct 35.3 L
Plt Count 334
PT 16.5 H
INR 1.30
Sodium 133 L 133 L 137
Potassium 4.3 4.1
Chloride 103 103
Carbon Dioxide 24 25
BUN 11 10
Creatinine 0.7 0.6
Glucose 105 H 149 H
Calcium 10.2 10.0
Total Bilirubin
AST
ALT
Alkaline Phosphatase
07/28/25 07/28/25 07/28/25
04:04 04:04 04:04
WBC
Hgb
Hct
Plt Count
PT
INR
Sodium Cancelled
Potassium 4.0 Cancelled
Chloride 104 Cancelled
Carbon Dioxide 25
BUN
Creatinine
Glucose
Calcium
Total Bilirubin
AST
ALT
Alkaline Phosphatase
07/28/25 07/28/25 07/28/25
04:04 04:04 04:04
WBC
Hgb
Hct
Plt Count
PT
INR
Sodium
Potassium
Chloride
Carbon Dioxide Cancelled
BUN 7 Cancelled
Creatinine 0.6 Cancelled
Glucose 137 H
Calcium
Total Bilirubin
AST
ALT
Alkaline Phosphatase
07/28/25 07/28/25 07/28/25
04:04 04:04 11:00
WBC
Hgb
Hct
Plt Count
PT
INR
Sodium Pending
Potassium Pending
Chloride Pending
Carbon Dioxide Pending
BUN Pending
Creatinine Pending
Glucose Cancelled Pending
Calcium 9.9 Cancelled Pending
Total Bilirubin 0.8
AST 21
ALT 23
Alkaline Phosphatase 64
07/28/25
15:00
WBC
Hgb
Hct
Plt Count
PT
INR
Sodium Pending
Potassium Pending
Chloride Pending
Carbon Dioxide Pending
BUN Pending
Creatinine Pending
Glucose Pending
Calcium Pending
Total Bilirubin
AST
ALT
Alkaline Phosphatase
Vital Signs:
Vital Signs
Temp Pulse Resp BP Pulse Ox
98.3 F 66 15 132/91 97
07/28/25 03:41 07/28/25 06:00 07/28/25 06:00 07/28/25 04:05 07/28/25 06:00
I&O
07/27/25 07/28/25 07/29/25
06:59 05:59 06:59
Intake Total 2700 / 2700
Output Total 4550 / 4550 3350 / 3350
Balance -4550 / -4550 -650 / -650
Review of Systems
-
History Source: Patient
Constitutional: Reports No Symptoms
EENT: Reports No Symptoms Reported
Respiratory: Reports No Symptoms
Cardiac: Reports No Symptoms
Abdomen/GI: Reports No Symptoms
Breast: Reports No Symptoms
Genitourinary: Reports No Symptoms
Musculoskeletal: Reports No Symptoms and Other (Neck pain)
Skin: Reports No Symptoms
Endocrine: Reports No Symptoms
Hematologic / Lymphatic: Reports No Symptoms
Allergy / Immunology: Reports No Symptoms
Physical Exam
-
General: Well Developed, Well Nourished, No Apparent Distress, Comfortable, Conversant and Other (Appears fatigued)
HEENT: Normocephalic, Atraumatic, Moist Mucous Membranes, Anicteric and Other (Nasal packing in place. Minimally oozing blood from left nares)
Respiratory: Clear to Auscultation
Cardiac: Regular Rhythm and S1/S2 (No murmur)
GI: Soft, Nontender, Nondistended and Normal Bowel Sounds
Musculoskeletal: No Clubbing and No Cyanosis
Skin: Warm
Neuro: Awake and AO x 3
Psych: Calm
Data Reviewed
-
Labs: Labs Reviewed by me, Discussed with Physician, Discussed with Nurse and Discussed with Patient
Old Records: Reviewed
[2025-07-28] MEDS: DDAVP NASAL SPRAY 1 SPRAY NASAL (08:07)
[2025-07-28] MEDS: NORVASC 5 MG PO (08:15)
[2025-07-28] MEDS: AUGMENTIN 875 MG/125 MG 1 TABLET PO ×2 (08:15→20:18)
[2025-07-28] MEDS: ZESTRIL 10 MG PO (08:15)
[2025-07-28] MEDS: DDAVP PO (08:16)
[2025-07-28] MEDS: VISBIOME 1 CAP PO (08:23)
[2025-07-28] MEDS: DDAVP 0.05 MG PO (08:29)
--- NOTE | 2025-07-28 09:40 | W.PN.NEPH.PH ---
Today's Communication / Plan
-
follow BMP
Assessment/Plan
-
Assessment
Hyponatremia
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
Hypertension
Mechanical AVR
Plan
BMP serially
hold on DDAVP, D5W for now
follow [facility]
d/w [facility] endocrine group contract analyst. They will get back to me if they have any further thoughts
total time 60 minutes
-
-
Date of Service: July 28, 2025
CC / HPI / ROS
-
Chief Complaint:
hyponatremia
History of Present Illness:
Na up to 137 despite D5W
BP stable
pain-BURR and feels packing in sinus
Review of Systems:
no CP/SOB
Labs
-
Labs:
WBC 7.9 10^3/uL (4.8-10.8) 07/28/25 04:04
RBC 3.65 10^6/uL (4.20-5.40) L 07/28/25 04:04
Hgb 11.9 g/dL (12.0-16.0) L 07/28/25 04:04
Hct 35.3 % (37.0-47.0) L 07/28/25 04:04
Plt Count 334 10^3/uL (130-400) 07/28/25 04:04
eGFR > 60.00 07/28/25 04:04
eGFR Cancelled 07/28/25 04:04
Albumin 4.3 g/dl (3.5-5.0) 07/28/25 04:04
Physical Exam
-
Vital Signs:
Vital Signs
Temp Pulse Resp BP Pulse Ox
98.3 F 67 15 142/88 97
07/28/25 03:41 07/28/25 08:15 07/28/25 06:00 07/28/25 08:15 07/28/25 06:00
[2025-07-28] MEDS: LIORESAL 10 MG PO (11:19)
[2025-07-28] MEDS: LIDOCAINE 4% PATCH 1 PATCH TOPICAL (11:21)
[2025-07-28] MEDS: LOTRIMIN 1% CREAM 1 APPLIC TOPICAL (11:21)
[2025-07-28] MEDS: AFRIN NASAL SPRAY 2 SPRAYS NASAL ×2 (12:04→20:18)
[2025-07-28 13:06] LABS: Blood Urea Nitrogen 6 mg/dl (7-17); Calcium 10.2 mg/dl (8.4-10.2); Carbon Dioxide 25 mmol/L (22-30); Chloride 104 mmol/L (98-107); Estimated Creatinine Clearance 107 ml/min; Glucose 111 mg/dl (70-99); Potassium 4.4 mmol/L (3.5-5.1); Sodium 138 mmol/L (135-145); eGFR > 60.00
[2025-07-28] MEDS: COUMADIN 10 MG PO (17:44)
[2025-07-28] MEDS: FLUSH (NSS) 2 FLUSH IV (18:01)
--- NOTE | 2025-07-28 18:36 | PTCARENOTE ---
received pt this am with complaints of severe headache at base of neck and rt frontal area. Pt also with complaints of feeling overall physical pressure from IV infusion at rate of 250m at that time. Iv site is patent and in good condition. She was
anxious and upset this am but after multiple conversations with her medical team, nephrology and hospitalist and this RN - the pt felt relief regarding her concerns about her medical plan of care and felt her questions were answered. Pt reports
Lidocaine patch to base of Rt neck was effective for that discomfort and the sharp pain that had been occurring earlier. Pt with no neuro changes this shift. OOB to ambulate to and from bathroom, pt did preform own bathroom hygiene and reports
feeling stronger this afternoon. Continue monitoring Sodium levels and urine osmolality levels
[2025-07-28 18:52] LABS: Blood Urea Nitrogen 9 mg/dl (7-17); Calcium 10.4 mg/dl (8.4-10.2); Carbon Dioxide 24 mmol/L (22-30); Chloride 105 mmol/L (98-107); Estimated Creatinine Clearance 107 ml/min; Glucose 118 mg/dl (70-99); Potassium 4.6 mmol/L (3.5-5.1); Sodium 137 mmol/L (135-145); eGFR > 60.00
[2025-07-28] MEDS: REMOVE LIDOCAINE PATCH 1 PATCH REMOVE (20:19)
[2025-07-28] MEDS: LOTRIMIN 1% CREAM TOPICAL (20:22)
[2025-07-28] MEDS: XANAX 0.25 MG PO (21:08)
[2025-07-28] MEDS: TOPROL XL 25 MG PO (23:30)
[2025-07-29] MEDS: LOVENOX 80 MG SC ×2 (00:27→12:29)
[2025-07-29 00:29] VITALS: BP 129/83
--- NOTE | 2025-07-29 03:43 | PTCARENOTE ---
Assumed care at 1900. Patient staring at bedside monitor and anxious about her PVCS. Patient with frequent PACs and PVCs on the monitor. Patient stated that she is worried about her magnesium level because she takes magnesium at home but mag level
this AM is 2.1. Emotional support provided and patient was offered xanax for anxiety. Patient then rang the call mondragon later stating that she takes metoprolol at home and hasn't received it for two days. director call provider made aware and placed order
for home dose of metoprolol to start 07/29. Home med list updated. Patient updated. Patient rang the call mondragon an hour later stating she 'demands' her metoprolol right now. director call provider made aware and placed order. Unable to complete 0100 urine
osmolality due to patient sleeping.
[2025-07-29] MEDS: DILAUDID 0.5 MG IV (04:33)
[2025-07-29 04:54] LABS: Hematocrit 36.8 % (37.0-47.0); Hemoglobin 12.1 g/dL (12.0-16.0); Mean Corp Hgb Conc. 32.9 g/dL (33.0-37.0); Mean Corpuscular Volume 101.9 fL (81.0-99.0); Nucleated Red Blood Cells % 0 %; Platelet Count 368 10^3/uL (130-400); Red Cell Dist. Width 14.3 % (11.5-14.5)
[2025-07-29 05:00] LABS: INR 1.47; PT 18.1 Sec (11.4-14.6)
[2025-07-29 05:12] LABS: ALT (SGPT) 24 U/L (0-35); AST (SGOT) 19 U/L (14-36); Albumin 4.3 g/dl (3.5-5.0); Alkaline Phosphatase 64 U/L (38-126); Blood Urea Nitrogen 11 mg/dl (7-17); Calcium 10.1 mg/dl (8.4-10.2); Carbon Dioxide 24 mmol/L (22-30); Chloride 104 mmol/L (98-107); Estimated Creatinine Clearance 107 ml/min; Glucose 118 mg/dl (70-99); Magnesium 1.9 mg/dl (1.6-2.3); Potassium 4.3 mmol/L (3.5-5.1); Sodium 135 mmol/L (135-145); Total Protein 7.1 g/dl (6.3-8.2); eGFR > 60.00
[2025-07-29 06:27] VITALS: BP 108/65
[2025-07-29] MEDS: AFRIN NASAL SPRAY 2 SPRAYS NASAL (09:09)
[2025-07-29] MEDS: LIDOCAINE 4% PATCH 1 PATCH TOPICAL (09:09)
[2025-07-29] MEDS: NORVASC 5 MG PO (09:10)
[2025-07-29] MEDS: TOPROL XL 25 MG PO (09:10)
[2025-07-29] MEDS: VISBIOME 1 CAP PO (09:10)
[2025-07-29] MEDS: ZESTRIL 10 MG PO (09:10)
[2025-07-29] MEDS: AUGMENTIN 875 MG/125 MG 1 TABLET PO (09:10)
[2025-07-29] MEDS: LOTRIMIN 1% CREAM TOPICAL (09:23)
--- NOTE | 2025-07-29 10:37 | PTCARENOTE ---
Pt very upset regarding plan of care. Pt upset that she is unable to take home mediation that is not FDA approved per hospital policy. Pt states she will be leaving today whether she is d/c or not. Michaela Aviles and Nelly made aware via TT.
[2025-07-29] MEDS: XANAX 0.25 MG PO (11:10)
--- NOTE | 2025-07-29 11:17 | W.PN.HOSP.TC ---
Addendum entered and electronically signed by Keegan Cardenas DO 07/29/25 12:46:
SIADH is unexpected but is NOT a complication of the surgery
Original Note:
Today's Communication/Plan
-
DC
Assessment / Plan
Assessment / Plan
IMPRESSION:
55-year-old with a past medical history of hypertension, thoracic aortic aneurysm, hemorrhagic CVA, mechanical AVR and recent transsphenoidal pituitary resection on 07/18/2025 who presented to the ED with fatigue, headache and neck pain. Patient
took 2 doses of HCTZ as needed because of elevated blood pressure at home. Na in ED was 118.
CT head 07/25/25: Postsurgical changes. No acute intracranial hemorrhage.
PLAN:
# Symptomatic hyponatremia
Recent neurosurgery 07/18/25, discharged on 07/21/25
s/p 2 doses of HCTZ PRN prior to admission
Na 118 in the ED.
Serum osmolality low, high urine osm high and urine sodium, indicating SIADH. Less likely diabetes insipidus given high urine sodium and no hypernatremia.
Cortisol and TSH normal.
Nephrology consulted. s/p hypertonic saline.� Na 07/27/25 is 133, which indicated overcorrection of sodium in 24-hour span. Given D5W 250 ml/hr as per Nephrology recs 07/27/25.
Na 137 . Na 135 07/29/25.
# Status post transsphenoidal resection of pituitary tumor 07/18/25
# Nasal bleeding
CT head as above
Nasal packing to be in place for 2 weeks total. Continue prophylactic antibiotics.
Patient having intermittent nasal bleeding during admission. Will give Afrin nasal spray for vasoconstriction of vessels.
Pain control
Patient has a follow-up appointment with the ENT on 07/31/2025 to remove nasal packing.
# Neck pain
Patient having unilateral neck pain-most likely muscle strain 07/28
Given lidocaine patch daily and Baclofen PRN.
#Vaginal itching -likely yeast infection in the setting of recent antibiotic
Given topical clotrimazole cream twice daily
# Paroxysmal atrial fibrillation
# Mechanical AVR
EKG NSR
On Coumadin for aortic valve replacement�
INR 1.08 07/25/25; INR 1.18 07/27/25; 1.30 on 07/28/25. Continue Lovenox BID bridging until INR is therapeutic.
Dose Coumadin as needed- 7.5 mg on 07/25/25, 10 mg on 07/26/25, 7.5 on 07/27/25, 10 mg on 07/28/25
# Essential hypertension
# History of aortic dissection
# History of hemorrhagic CVA
Continue lisinopril and amlodipine
Hold HCTZ.
Full code
DVT prophylaxis: Lovenox/ Coumadin
Anticipated Discharge: Today
Subjective/Interval History
-
Date of Service: July 29, 2025
Patient evaluated at bedside this morning. She feels well, no new complaints. Patient expresses that she would like to be discharged today.
Objective Data
-
Labs:
Laboratory Results
07/29/25
04:41
WBC 8.6
Hgb 12.1
Hct 36.8 L
Plt Count 368
PT 18.1 H
INR 1.47
Sodium 135
Potassium 4.3
Chloride 104
Carbon Dioxide 24
BUN 11
Creatinine 0.6
Glucose 118 H
Calcium 10.1
Total Bilirubin 0.9
AST 19
ALT 24
Alkaline Phosphatase 64
Vital Signs:
Vital Signs
Temp Pulse Resp BP Pulse Ox
98.3 F 79 18 108/65 98
07/29/25 08:24 07/29/25 06:27 07/29/25 06:27 07/29/25 06:27 07/29/25 06:27
I&O
07/28/25 07/29/25 07/30/25
05:59 06:59 06:59
Intake Total 2700 / 2700 1615 / 1615
Output Total 3350 / 3350 300 / 300
Balance -650 / -650 1315 / 1315
Review of Systems
-
History Source: Patient
Constitutional: Reports No Symptoms
EENT: Reports No Symptoms Reported
Respiratory: Reports No Symptoms
Cardiac: Reports No Symptoms
Abdomen/GI: Reports No Symptoms
Breast: Reports No Symptoms
Genitourinary: Reports No Symptoms
Musculoskeletal: Reports No Symptoms
Skin: Reports No Symptoms
Neuro: Reports No Symptoms
Endocrine: Reports No Symptoms
Hematologic / Lymphatic: Reports No Symptoms
Physical Exam
-
General: Well Developed, Well Nourished, No Apparent Distress, Comfortable and Conversant
HEENT: Normocephalic and Other (Nasal packing in place)
Respiratory: Clear to Auscultation
Cardiac: Regular Rhythm and S1/S2 (No murmur)
GI: Soft, Nontender, Nondistended, Normal Bowel Sounds and No Hepatosplenomegaly
Musculoskeletal: No Clubbing, No Cyanosis and No Edema
Neuro: Awake, AO x 3 and Nonfocal/Grossly Intact
Psych: Calm and Intact Judgement/Insight
Data Reviewed
-
Labs: Labs Reviewed by me, Discussed with Physician and Discussed with Patient
Old Records: Reviewed
--- NOTE | 2025-07-29 11:29 | W.PN.NEPH.PH ---
Today's Communication / Plan
-
Fluid restrict 48 ounces okay for discharge from renal standpoint
Assessment/Plan
-
Assessment
Hyponatremia
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
Hypertension
Mechanical AVR
Plan
BMP serially
Sodium remains stable off IV fluids. Discussed with endocrine at [facility] who will follow-up with her okay for discharge from renal standpoint asked her to fluid restrict at 48 ounces for the time being
-
-
Date of Service: July 29, 2025
CC / HPI / ROS
-
Chief Complaint:
hyponatremia
History of Present Illness:
NaStable
BP stable
pain-BURR and feels packing in sinus
Review of Systems:
no CP/SOB
Labs
-
Labs:
WBC 8.6 10^3/uL (4.8-10.8) 07/29/25 04:41
RBC 3.61 10^6/uL (4.20-5.40) L 07/29/25 04:41
Hgb 12.1 g/dL (12.0-16.0) 07/29/25 04:41
Hct 36.8 % (37.0-47.0) L 07/29/25 04:41
Plt Count 368 10^3/uL (130-400) 07/29/25 04:41
Sodium 135 mmol/L (135-145) 07/29/25 04:41
Potassium 4.3 mmol/L (3.5-5.1) 07/29/25 04:41
Chloride 104 mmol/L (98-107) 07/29/25 04:41
Carbon Dioxide 24 mmol/L (22-30) 07/29/25 04:41
BUN 11 mg/dl (7-17) 07/29/25 04:41
Creatinine 0.6 mg/dL (0.6-1.0) 07/29/25 04:41
eGFR > 60.00 07/29/25 04:41
Glucose 118 mg/dl (70-99) H 07/29/25 04:41
Calcium 10.1 mg/dl (8.4-10.2) 07/29/25 04:41
Albumin 4.3 g/dl (3.5-5.0) 07/29/25 04:41
Physical Exam
-
Vital Signs:
Vital Signs
Temp Pulse Resp BP Pulse Ox
98.3 F 79 18 108/65 98
07/29/25 08:24 07/29/25 06:27 07/29/25 06:27 07/29/25 06:27 07/29/25 06:27
Respiratory:: Bilateral: CTA
Lung Excursion:: Normal
Abdomen:: Soft
Bowel Sounds:: Normal
Extremity Edema:: None: Bilateral:
[2025-07-29] MEDS: ROXICODONE 5 MG PO (12:06)
--- NOTE | 2025-07-29 12:23 | PN.CDI ---
CDI
- -
CDI:
Physician Documentation Request
Admit Date: 07/25/25 22:23
Dear Doctor,
Patient admitted for hyponatremia.
07/29 Hospitalist PN: 'Symptomatic hyponatremia...Serum osmolality low, high urine osm high and urine sodium, indicating SIADH...Status post transsphenoidal resection of pituitary tumor 07/18/25'
Please clarify the following:
SIADH is a complication of the surgery
SIADH is unexpected but is NOT a complication of the surgery
SIADH is an expected occurrence and is not a complication of surgery
SIADH is inherent to/unavoidable during the surgery and is not a complication
Other
Use of terms such as suspected, likely, concern for, or probable (associated with a specific diagnosis that is being evaluated, monitored, or treated as if it exists) are acceptable and can be coded in the inpatient setting, when documented at the
time of discharge.
Thank you,
Jillian Mcmillan RN, BSN
CDI Specialist
Available via [place] text
Please use your independent medical judgment in providing your response.
[2025-07-29 12:33] VITALS: BP 120/95
--- NOTE | 2025-07-29 13:22 | W.DCSUMMARY ---
Addendum entered and electronically signed by Nelly Bergman MD, Resident 07/29/25 16:56:
This is to correct the statement in my prior addendum. SIADH is not a complication of the transsphenoidal resection surgery.
Addendum entered and electronically signed by Nelly Bergman MD, Resident 07/29/25 16:34:
This addendum is to further clarify patient's hyponatremia. The SIADH is likely a complication of the transsphenoidal resection surgery.
Original Note:
Discharge Summary
Discharge Data
Date of Admission: 07/25/25
Date of Discharge: 07/29/25
-
Pending Results: No
Hospital Course
Discharging Physician : Dr. Keegan Cardenas and Dr. Nelly Bergman
Disposition : Home
Primary care physician : Rox oBtello MD
Principal Discharge diagnosis : Symptomatic hyponatremia, Status post transsphenoidal resection of pituitary tumor 07/18/25, Nasal bleeding, Neck pain, vaginal itching, paroxysmal atrial fibrillation, mechanical AVR
Chronic Discharge diagnosis : Essential hypertension, history of aortic dissection, history of hemorrhagic CVA
Hospital Course : A 55-year-old female with a past medical history of hypertension, aortic dissection, hemorrhagic CVA, mechanical aortic valve replacement and recent transsphenoidal pituitary resection on 07/18/2025 presented to the ED with fatigue
and found to be hyponatremic-Na 118. CT head showed postsurgical changes without acute intracranial hemorrhage. Urine studies were consistent with SIADH likely secondary to recent neurosurgery and possible thiazide use. She was treated with
hypertonic saline per nephrology recommendations. There was concern of sodium overcorrection and she was started on D5W. Sodium subsequently stabilized Na 137 and 135 on 10/27/2010/. Cortisol and TSH levels were normal. Plan was discussed with
turbine engine assembler Dr. Emma Burnett at [facility].
The patient is postoperative day 11 from pituitary resection with nasal packing in place. She experienced mild nasal bleeding over the course of the stay, and ENT was notified. She remains on prophylactic antibiotics and pain control with ENT
follow-up scheduled for nasal packing removal on 07/31/2025. Patient also reported vaginal itching likely secondary to recent antibiotic use for which topical clotrimazole cream twice daily was prescribed. Patient has history of
paroxysmal atrial fibrillation with a mechanical aortic valve replacement. EKG showed normal sinus rhythm during hospitalization. She is on Coumadin with subtherapeutic INR's during admission (1.08 --> 1.47). She will continue Lovenox twice daily
bridging until INR is therapeutic and continue Coumadin as adjusted (7.5 mg with occasional 10 mg doses as needed). Patient is to continue monitoring her INR, CBC and CMP with her PCP within a week.
Hypertension remained stable on lisinopril and amlodipine. Hydrochlorothiazide is discontinued given its contribution to hyponatremia. Patient is clinically improved and stable for discharge with close outpatient follow-up with ENT neurosurgery,
and PCP. Patient understands this plan and is agreeable to discharge.
Important imaging findings :
CT head 07/25/2025: Postsurgical changes
Discharge Plan
-
Patient Disposition: Home (Routine Discharge)
Discharge Diagnosis/Procedures: Symptomatic hyponatremia
S/p transsphenoidal resection of pituitary tumor 07/18/2025
Nasal bleeding
Neck pain
Vaginal itching
History of mechanical aortic valve replacement
Condition: Good
Diet: Low Sodium and Restrict fluids to 48 oz
Activity: As tolerated
Driving Restrictions: As prior to admission
Others Tests: CBC, CMP, INR within 1 week (follow up with PCP)
Referrals:
Rox Botello MD [Family Provider, Family Practice] - in less than 1 week
Additional Discharge Medication Instructions: Please use Afrin nasal spray for nosebleeds until you see ENT on 07/31/25. Please bridge Lovenox with Warfarin and follow up with PCP to monitor INR, as well as CBC / BMP.
Prescriptions:
New
oxymetazoline [Afrin (oxymetazoline)] 0.05 % [place],Non-Aerosol
1 spray intranasal BID Qty: 22 0RF
Continued
amlodipine 5 mg tablet
5 mg PO DAILY
alprazolam 0.25 mg tablet
0.25 mg PO Q8HPRN PRN (Reason: anxiety)
lisinopril 10 mg tablet
10 mg PO DAILY
lisinopril 2.5 mg tablet
2.5 mg PO DAILY PRN (Reason: Blood Pressure)
amoxicillin-pot clavulanate 875-125 mg Tablet
1 tab PO BID
Rx Instructions:
While nasal packing in place.
oxycodone 5 mg Tablet
5 mg PO Q4H PRN (Reason: Pain)
hydrochlorothiazide 12.5 mg Tablet
12.5 mg PO DAILY PRN (Reason: High BP)
metoprolol succinate 25 mg Tablet Extended Release 24 Hr
25 mg PO DAILY Qty: 0 0RF
enoxaparin [Lovenox] 80 mg/0.8 mL Syringe
80 mg SC Q12H Qty: 14 0RF
Changed
warfarin 5 mg tablet
7.5 mg PO QPM Qty: 0 0RF
Discharge Orders:
Discharge Patient (As Directed); Ordered 07/29/25
Ordered By: Nelly Bergman
Discharge Date and Time
Print Language: LAO
--- NOTE | 2025-07-29 13:25 | CM ---
F/U: Patient is discharging and has no needs. PLAN: Home No Needs.
--- NOTE | 2025-07-29 13:37 | PTCARENOTE ---
Pt for d/c home. Instructions and med list reviewed with pt at length. Home meds returned from pharmacy. IV and monitor equipment removed. Declined wheelchair, ambulated off unit with family member.
== END 2025-07-29 14:02 | disposition home or self-care (01) | DRG 645 ==
LOC: IMU 22:23
PROVIDERS: General Practice; Physician Assistant Medical; Student in an Organized Health Care Education/Training Program; ADMITTING PHYSICIAN Hospitalist; ATTENDING PHYSICIAN Internal Medicine; CONSULT PHYSICIAN Internal Medicine Endocrinology, Diabetes & Metabolism; EMERGENCY PHYSICIAN Emergency Medicine; FAMILY PHYSICIAN Student in an Organized Health Care Education/Training Program; OTHER PHYSICIAN Specialist
DX: E22.2 Syndrome of inappropriate secretion of antidiuretic hormone (principal); Z95.2 Presence of prosthetic heart valve; I48.0 Paroxysmal atrial fibrillation; I10 Essential (primary) hypertension; Q23.81 Bicuspid aortic valve; R04.0 Epistaxis; Z79.01 Long term (current) use of anticoagulants; Z86.73 Personal history of transient ischemic attack (TIA), and cerebral infarction without residual deficits; B37.9 Candidiasis, unspecified
CPT/HCPCS: 70450; 80048; 80053; 81003; 81015; 82533; 82570; 83735; 83930; 83935; 84295; 84300; 84443; 85025; 85027; 85610; 85730; 87086; 96374; 96376; 99291